=== PATIENT | male | born 1965 | race Caucasian/White ===

== ENCOUNTER 2017-01-26 08:23 | Inpatient (IN) | payer BC ==
[~2017-01-26] VITALS: Ht 167.6 cm; Wt 76.6 kg
[2017-01-26] VITALS (8 sets, daily range): BP systolic 92–118; BP diastolic 55–76; PULSE 96–116; RESP 14–21; TEMP 98.3; Ht 167.6 cm; Wt 76.6 kg
[2017-01-26] MEDS ORDERED: SOD CHLORIDE 0.9% 1,000 ML IV STA (08:24)
--- NOTE | 2017-01-26 08:44 | RADRPT ---
PROCEDURE: CT head without intravenous contrast CLINICAL INDICATION: Possible Stroke. COMPARISON: None relevant listed. TECHNIQUE: Axial CT images from skull base to vertex with coronal and sagittal reformats. DOSE: The estimated administered radiation dose was CTDI vol = 82, 41, 45 mGy. DLP = 1260 mGy-cm. O ne or more of the following dose reduction techniques were used: automated exposure control, adjustm ent of the mA and/or kV according to patient size, or use of iterative reconstruction. FINDINGS: Limitations: Motion degrades image quality. Parenchyma: No gross hemorrhage or large territorial infarction. Ventricles: No ventriculomegaly or ventricular effacement. Extra-axial spaces: No midline shift. Paranasal sinuses and mastoids: Clear. Bones: Grossly Normal. Additional comment: None. IMPRESSION: Markedly limited examination due to gross patient motion. No gross hemorrhage identified or large t erritorial infarction identified. A repeat examination can be performed when tolerable for the sen ent. RPTAT: PP Physician Anirudh Date Time Electronically viewed and signed by Physician Anirudh on 01/26/2017 08:44 LG/
[2017-01-26 08:59] LABS: ABNORMAL IP MESSAGE 1; BASOPHILS % 0.2 % (0.0-2.0); HEMATOCRIT 38.3 % (42.0-52.0); HEMOGLOBIN 14.2 g/dl (14.0-18.0); LYMPHOCYTES # 1.5 10^3/ul (0.8-2.9); LYMPHOCYTES % 7.5 % (15.0-51.0); MEAN CORPUSCULAR HEMOGLOBIN 30.5 pg (29.0-33.0); MEAN CORPUSCULAR HGB CONC 37.1 g/dl (32.0-37.0); MEAN CORPUSCULAR VOLUME 82.4 fl (82.0-101.0); MEAN PLATELET VOLUME 9.9 fl (7.4-10.4); MONOCYTE # 1.6 10^3/ul (0.3-0.9); NEUTROPHIL # 16.7 10^3/ul (1.6-7.5); NEUTROPHILS % 83.9 % (39.0-77.0); PLATELET COUNT 367 10^3/UL (140-415); POSITIVE DIFF @See below; RED BLOOD COUNT 4.65 10^6/ul (4.70-6.10); RED CELL DISTRIBUTION WIDTH 12.1 % (11.5-14.5); WHITE BLOOD COUNT 19.9 10^3/ul (4.8-10.8)
[2017-01-26] MEDS ORDERED: LORAZEPAM 2 MG INJ IV ONE ×2 (09:00→14:30)
[2017-01-26] MEDS ORDERED: LORAZEPAM 2 MG INJ IV STA (09:02)
[2017-01-26] MEDS ORDERED: SODIUM CHLORIDE 0.9% 1L BAG IV* STA (09:02)
[2017-01-26 09:04] LABS: ADD UMIC YES; UR ASCORBIC ACID NEGATIVE (NEGATIVE); UR BILIRUBIN (Dip) NEGATIVE (NEGATIVE); UR BLOOD (Dip) 2+ mg/dL (NEGATIVE); UR CLARITY CLEAR (CLEAR); UR COLOR STRAW (YELLOW); UR GLUCOSE (Dip) 3+ mg/dL (NEGATIVE); UR KETONES (Dip) 2+ mg/dL (NEGATIVE); UR LEUKOCYTE ESTERASE (Dip) NEGATIVE Leu/ul (NEGATIVE); UR NITRITE (Dip) NEGATIVE (NEGATIVE); UR RBC 2 /HPF (0-5); UR SPECIFIC GRAVITY (Dip) 1.012 (1.003-1.030); UR TOTAL PROTEIN (Dip) NEGATIVE (NEGATIVE); UR UROBILINOGEN (Dip) NEGATIVE (NEGATIVE)
[2017-01-26 09:13] LABS: Allen Test ACCEPTAB; Arterial Base Excess -7.2 mmol/L (-3.0-3); Arterial COHb 0.3 % (0.0-3.0); Arterial Fraction of Oxyhgb 98.8 % (93.0-99.0); Arterial HCO3 14.3 mmol/L (22.0-26.0); Arterial MetHb 0.3 % (0.0-1.5); Arterial Total Hemglobin 14.9 g/dl (12.0-18.0); MODE MASK - NRB
[2017-01-26 09:27] LABS: BARBITURATES Negative (NEGATIVE); BENZODIAZEPINES Negative (NEGATIVE); CANNABINOIDS Negative (NEGATIVE); COCAINE Negative (NEGATIVE); OPIATES Negative (NEGATIVE)
[2017-01-26] MEDS ORDERED: CEFTRIAXONE 2 GM/50 ML (PMX) 50 ML IVPB ONE (09:30)
[2017-01-26 09:33] LABS: INR 1.01; PARTIAL THROMBOPLASTIN TIME 26.4 Sec (25.0-35.0); PROTIME 13.3 Sec (12.2-14.2)
[2017-01-26 09:36] LABS: CREATININE 0.81 mg/dl (0.61-1.24); POTASSIUM 3.4 mmol/L (3.5-5.1)
[2017-01-26 09:47] LABS: TROPONIN-I 0.081 ng/ml (0.00-0.12)
--- NOTE | 2017-01-26 10:45 | RADRPT ---
PROCEDURE: XR Chest. CLINICAL INDICATION: Possible Stroke TECHNIQUE: Single frontal view of the chest was obtained COMPARISON: None FINDINGS: Overlying necklace obscures underlying anatomy, limiting evaluation. There are low lung volumes. The cardiomediastinal silhouette is within normal limits. No pneumothorax, pleural effusion, or consolidation is identified. There is no evidence of pulmonary vascular congestion. The osseous structures, as visualized, are unremarkable. IMPRESSION: No evidence of an acute cardiopulmonary process. RPTAT: [facility] Physician Ayla Date Time Electronically viewed and signed by Physician Ayla on 01/26/2017 10:44 RC/
--- NOTE | 2017-01-26 10:46 | CONS ---
Date/Time of Note Date/Time of Note DATE: 01/26/17 TIME: 10:45 Assessment/Plan Assessment/Plan Additional Assessment/Plan 51 year old male with HTN, HLD was hiking yesterday and returned home found by his roommate unresponsive- he was brought in by Ambulance with altered mental status. He is noted with severe metabolic abnormalities: hyponatremia, elevated lactic acid and leukocytosis with shift. He remains encephalopathic- Currently his BP also dropped to systolic 80s Renal has been consulted for acute hyponatremia with Na 122, HCO3 16. Renal has been consulted for severe hyponatremia, Severe metabolic acidosis. 1. acute metabolic encephalopathy vs Infectious encephalopathy 2. severe hyponatremia 3. severe metabolic acidosis 4. Hypokalemia 5. Sepsis with Hypotension 6. acute rhabdomyolysis Plan: ICU admission IV abx for possible concern about sepsis KCL 20mEQ IV x 1 dose now Sodium Bicarbonate drip with HCo3 100meQ at 75 cc/hr Urine studies including Urine sodium, Urine prot/cr ratio, CK total, Uric acid, urine drug screen IVF NS at 125 cc/hr ammonial level Neurology consult, MRI brain, carotid doppler US NO family member available at this time in emergency Room- we will update family meeting when they are available. Thanks for consultaiton,we will continue to follow up Consultation Date/Type/Reason Admit Date/Time 01/26/2017 Date of Consultation: Jan 26, 2017 Type of Consultation: NEPHROLOGY Reason for Consultation Severe Hyponatremia, Metabolic acidosis Referring Provider: LAURI SALAS Hx of Present Illness 51 year old male with HTN, HLD was hiking yesterday and returned home found by his roommate unresponsive- he was brought in by Ambulance with altered mental status. He is noted with severe metabolic abnormalities: hyponatremia, elevated lactic acid and leukocytosis with shift. He remains encephalopathic- Currently his BP also dropped to systolic 80s Renal has been consulted for acute hyponatremia with Na 122, HCO3 16. Renal has been consulted for severe hyponatremia, Severe metabolic acidosis. Subjective hx not possible: pt non-verbal, other (pt is altered , not following commands ) Past Medical History Medical History: hypertension Past Surgical History Past Surgical Hx: other (unable to obtain ) Family History Significant Family History: other (unable to obtain ) Social History Alcohol Use: none Drug Use: other (unable to obtain ) Exam/Review of Systems Vital Signs Vitals Vital Signs Date Time Temp Pulse Resp B/P Pulse Ox O2 Delivery O2 Flow Rate FiO2 01/26/17 10:01 Non Rebreather 10.0 01/26/17 09:58 98.3 105 20 109/78 98 Exam Constitutional: other (Altered mental status ) Head: normocephalic ENMT: nl external ears & nose Neck: supple Respiratory: crackles/rales, diminished breath sounds, intercostal retraction Cardiovascular: nl pulses, regular rate and rhythm Gastrointestinal: non-tender, soft Extremities: normal pulses Results Result Diagram: 01/26/17 0830 01/26/17 0830 Results 24 hrs Laboratory Tests Test 01/26/17 08:30 01/26/17 08:45 01/26/17 08:59 01/26/17 09:02 White Blood Count 19.9 H Red Blood Count 4.65 L Hemoglobin 14.2 Hematocrit 38.3 L Mean Corpuscular Volume 82.4 Mean Corpuscular Hemoglobin 30.5 Mean Corpuscular Hemoglobin Concent 37.1 H Red Cell Distribution Width 12.1 Platelet Count 367 Mean Platelet Volume 9.9 Neutrophils % 83.9 H Lymphocytes % 7.5 L Monocytes % 8.0 Eosinophils % 0.0 Basophils % 0.2 Nucleated Red Blood Cells % 0.0 Neutrophils # 16.7 H Lymphocytes # 1.5 Monocytes # 1.6 H Eosinophils # 0.0 Basophils # 0.0 Nucleated Red Blood Cells # 0.0 Prothrombin Time 13.3 Prothrombin Time Ratio 1.0 INR International Normalized Ratio 1.01 Activated Partial Thromboplast Time 26.4 Sodium Level 122 L Potassium Level 3.4 L Chloride Level 91 L Carbon Dioxide Level 16 L Anion Gap 18 H Blood Urea Nitrogen 8 Creatinine 0.81 Glucose Level 131 Calcium Level 9.0 Troponin I 0.081 Urine Opiates Screen Negative Urine Barbiturates Negative Urine Amphetamines Screen Negative Urine Benzodiazepines Screen Negative Urine Cocaine Screen Negative Urine Cannabinoids Negative Ethyl Alcohol Level < 10.0 Urine Color STRAW Urine Clarity CLEAR Urine pH 6.0 Urine Specific [place] 1.012 Urine Ketones 2+ H Urine Nitrite NEGATIVE Urine Bilirubin NEGATIVE Urine Urobilinogen NEGATIVE Urine Leukocyte Esterase NEGATIVE Urine Microscopic RBC 2 Urine Microscopic WBC 1 Urine Hemoglobin 2+ H Urine Glucose 3+ H Urine Total Protein NEGATIVE Blood Gas Specimen Source Blood arterial Arterial Blood Date Drawn 01/26/2017 9:00:53 AM Arterial Blood pH (Temp corrected) 7.448 Arterial Blood pCO2 (Temp correct) 21.2 L Arterial Blood pO2 (Temp corrected) 347.8 H Arterial Blood HCO3 14.3 L Arterial Blood Base Excess -7.2 L Arterial Blood Oxygen Saturation 99.4 H Ramone Test ACCEPTAB Arterial Blood Gas Puncture Site LB Arterial Blood Carboxyhemoglobin 0.3 Arterial Blood Methemoglobin 0.3 Blood Gas A-a O2 Differential 344.0 H Oxyhemoglobin Percent 98.8 Total Hemoglobin 14.9 Blood Gas Temperature 37.0 Blood Gas Modality MASK - NRB FiO2 100.0 Blood Gas Notified Rach Thornton Blood Gas Notified Time 01/26/2017 9:12:51 AM Bedside Glucose 135 MEDARDO CAM MD Jan 26, 2017 10:45
[2017-01-26 10:53] LABS: ALBUMIN 4.5 g/dl (3.3-4.9); BILIRUBIN,INDIRECT 0.6 mg/dl (0-1.1); BILIRUBIN,TOTAL 0.6 mg/dl (0.2-1.3); TOTAL PROTEIN 7.3 g/dl (6.1-8.1)
[2017-01-26] MEDS ORDERED: ALBUTEROL/IPRATROPIUM (NEB) 3 ML AMP NEB PRN (11:00)
[2017-01-26] MEDS ORDERED: ONDANSETRON 4 MG INJ IV PRN (11:00)
[2017-01-26] MEDS ORDERED: NITROGLYCERIN (SL) 0.4 MG TAB SL PRN (11:00)
[2017-01-26] MEDS ORDERED: POTASSIUM CHLORIDE 20 MEQ in SOD CHLORIDE 0.9% 100 ML IVPB ONE (11:00)
[2017-01-26 11:03] LABS: AMMONIA < 9 umol/l (9-30)
[2017-01-26 11:05] LABS: LACTIC ACID 2.3 mmol/L (0.5-2.0)
[2017-01-26] MEDS ORDERED: ATOR40TA68 PO (11:07)
[2017-01-26] MEDS ORDERED: LOSA25TA2 (11:07)
--- NOTE | 2017-01-26 11:15 | HP ---
Date/Time of Note Date/Time of Note DATE: 01/26/17 TIME: 11:15 Assessment/Plan VTE Prophylaxis VTE Prophylaxis Intervention: SCD's Lines/Catheters Urinary Cath still in place: Yes Reason Cath still needed: other (indicate) Assessment/Plan Assessment/Plan This is a 51-year-old male who was brought by ambulance after found altered and nonverbal. 1. Acute encephalopathy with severe metabolic abnormalities (hyponatremia, lactic acidosis, low bicarb, elevated CK) in a patient with no known alcohol or other drug-intoxication: Rule out Hypoxic-ischemic encephalopathy vs Septic/ infectious encephalopathy vs toxic-metabolic encephalopathy of other etiologies. CT negative for acute infarct or hemorrhage-however, there is more artifact due to motion. -ICU admission -Further Stroke rule out with MRI in AM and EEG to rule out seizure -Septic work up with diagnostic lumbar puncture to rule out possible ASSISTANT PRESSMAN infection and pancultures for other bacteremia work-up -Rule out cardiac ischemic events with 2D echocardiogram, EKG and serial troponin -Rule out further electrolyte abnormalities other than existing hyponatremia- obtain repeat sodium lvel, add mag, calcium and PO4 level -Rule out other endocrinopathies with a Thyroid profile,B12 level and A1C -Will also request a Neurology consult- Ativan low dose PRN for now as pt is very agitated and will defer neurology for better choice of ASSISTANT PRESSMAN agents -Patient will be kept on a seizure and aspiration precautions 2. Hyponatremia of unknown etiology-Rule out SIADH. Ofnote, no seizure activities reported. -We will call nephrology consult-Needs further urine studies and this will be deferred to out nephrology team. For now, patient will be treated with IV fluids. -Monitor sodium level closely. -Seizure precaution 3. Sepsis of unknown etiology. -Obtain pancultures -Proceed with LP and follow-up with LP fluid studies -Start patient on broad-spectrum antibiotics , systemic hydration and will seek ID consult 4.Severe anion-gap Metabolic acidosis -Start systemic hydration and defer nephrology for bicarb treatment. 5.Possible early Rhabdomyolysis -We will treat with IV fluids. Monitor CK 6. Hypokalemia, mild -Defer nephrology 7. Hypertension-Now stable -Resume home medications once stable for p.o. 8. Dyslipidemia -Resume statin once able to take p.o. DVT prophylaxis: SCDs-we will consider prophylactic anticoagulation after MRI follow-up PUD prophylaxis: Pepcid Plan: Patient will be admitted to intensive care unit for closer neurovascular checks. He will need restraints as he is very agitated at this time.Patient will have nephrology, neurology and ID evaluation. For now, he will be kept n.p.o. with seizure and aspiration precaution. Electrolyte levels will be monitored closely with close sodium monitoring. Neurochecks will be monitored as well. Follow-up with serial troponins,LP studies,MRI,echo, EEG and other ordered labs/tests. Patient will be placed on DVT and PUD prophylaxis. Abstain from chemical anticoag at this time and will reevaluate in AM. Patient will be also followed by personal chef. The rest of the management depend on clinical course, further studies and input from consultants. CONDITION UP ON ARRIVAL:CRITICAL Approximately 60 minutes was spent on this history and physical. Case discussed with Dr. Bloom. HPI/ROS Admit Date/Time Admit Date/Time 01/26/2017 Hx of Present Illness This is a very unfortunate 51-year-old male with a past medical history of hypertension, hyperlipidemia, who was found altered by his roommate and was brought to the emergency room by ambulance. Last known well time was last night after he arrived home from [facility]. Patient is not able to provide any history due to his current mental status as he was found acutely delirious, confused, restless and non-verbal. Therefore, history was obtained from patient 's roommate. There is no history of substance abuse per roommate. A CT brain study was limited due to motion artifact, however there was no gross hemorrhage or large acute territorial infarction. Patient also had elevated WBC 19,900 with left shift. No fever. He also had a low sodium 122, potassium 3.4 and elevated lactic acid 2.3. Patient also had elevated CK 1333. ABG with a bicarb of 14.3. Drug toxicology was negative. Urine analysis with 2+ ketones and 3+ glucose. There was no WBC, bacteria or leukocyte Estrace. Patient was treated with normal saline,ceftriaxone and Ativan for agitation and was admitted for further evaluation. ROS Unable to do a 12 point review of system as patient is encephalopathic. PMH/Family/Social Past Medical History See HPI Past Surgical History See HPI Social History As per friend, patient never had any alcohol, smoking or drug use history Smoking Status: Unknown if ever smoked Exam/Review of Systems Vital Signs Vitals Vital Signs Date Time Temp Pulse Resp B/P Pulse Ox O2 Delivery O2 Flow Rate FiO2 01/26/17 10:01 Non Rebreather 10.0 01/26/17 09:58 98.3 105 20 109/78 98 Exam Exam General: Disoriented, moving around, restless and agitated. HEENT: Normocephalic, Atraumatic, No laceration or hematoma; Eyes: PEERL, Conjunctiva clear, Anicteric sclera Neck: Supple without any lymphadenopathy, nontender, no JVD, no carotid bruits, trachea midline, no thyromegaly Cardiac: S1, S2 auscultated, regular rhythm and rate, no mumurs or gallop Pulmonary: Normal respiratory effort. Chest clear to auscultation bilaterally, no adventitious breath sounds GI: Abdomen normal to inspection. Soft, non tender, non- distended, no masses, no rebound tenderness or guarding. Bowel sounds active on all four quadrants Genitourinary: Deferred Extremities: No cyanosis, clubbing, or edema. Pulses [2+] bilaterally. Full ROM on all four extremities. No focal weakness appreciated. Neurologic: Delirious+, not verbally responsive. Moves around, restless and disoriented 4 Skin: Clean,dry, and intact. No ecchymosis, no rashes, or lesions Labs Result Diagram: 01/26/17 0830 01/26/17 0830 Medications Medications Current Medications Sodium Bicarbonate 100 meq/Dextrose 1,100 ml @ 75 mls/hr [id number] IV ; Start at 11:00 Potassium Chloride 20 meq/ Sodium Chloride 110 ml @ 55 mls/hr ONCE ONCE IVPB ; Start 01/26/17 at 11:00; Stop 01/26/17 at 12:59 Sodium Chloride (NS) 1,000 ml @ 125 mls/hr Q8H IV ; Start 01/26/17 at 10:59; Status UNV Ondansetron HCl (Zofran Inj) 4 mg Q6H PRN IV NAUSEA AND/OR VOMITING; Start at 11:00; Status UNV Nitroglycerin (Nitroglycerin (Sl Tab) 0.4 Mg) 1 tab Q5M PRN SL CHEST PAIN; Start 01/26/17 at 11:00; Status UNV Lorazepam (Ativan) 1 mg Q2H PRN IV ANXIETY; Start 01/26/17 at 11:00; Status UNV Famotidine 20 mg 20 mg Q12 IV ; Start 01/26/17 at 21:00; Status UNV Piperacillin Sod/ Tazobactam Sod (Zosyn 3.375gm/ 100 ml (Pmx)) 100 ml @ 200 mls /hr Q6 IVPB ; Start 01/26/17 at 12:00; Status UNV MONET FLORES NP Jan 26, 2017 11:15
[2017-01-26] MEDS: SODIUM BICARBONATE (IV ADD) 100 MEQ in DEXTROSE 5% 1,000 ML IV SCH (11:52)
[2017-01-26] MEDS: SOD CHLORIDE 0.9% 1,000 ML IV SCH ×2 (11:53→17:34)
[2017-01-26] MEDS ORDERED: LEVETIRACETAM 500 MG (PMX) 100 ML IVPB SCH (12:00)
[2017-01-26] MEDS: PIPER-TAZO 3.375 GM IV (PMX) 100 ML IVPB SCH ×3 (12:00→23:46)
[2017-01-26] MEDS: FAMOTIDINE 20 MG INJ IV SCH ×2 (12:00→21:10)
[2017-01-26] MEDS ORDERED: IODIXANOL LOCM 100 ML BTL ONE (12:13)
[2017-01-26] MEDS ORDERED: IODIXANOL LOCM 50 ML BTL ONE (12:13)
[2017-01-26] MEDS ORDERED: SOD CHLORIDE 0.9% 100 ML ONE (12:13)
[2017-01-26] MEDS ORDERED: QUETIAPINE 25 MG TAB PO PRN (12:30)
--- NOTE | 2017-01-26 12:38 | CONS ---
Date/Time of Note Date/Time of Note DATE: 01/26/17 TIME: 12:28 Assessment/Plan Assessment/Plan Chief Complaint/Hosp Course 51 year old male with HTN, HLD was hiking yesterday and returned home found by his roommate unresponsive with severe metabolic abnormalities: hyponatremia, elevated lactic acid and leukocytosis with shift. He remains encephalopathic. Recommendations: -avoid ativan due to inability to monitor his neurologic status, if needed for agitation recommended low dose Seroquel 25 mg daily prn -rule out HIGH SCHOOL DIRECTOR infection given elevated WBC and AMS- recommend LP may be done under IR, Cell Count, Protein, Glucose, Cultures, Fungal, Bacterial cultures, Viral encephalitis panel, HSV I,II PCR -MRI Brain without contrast -Routine EEG -nephrology following, recommend slow Sodium correction not to exceed 10 mmol/L/ 24 hours to avoid CPM -for now dc Keppra no clear history of seizure will review EEG and MRI and re- order if necessary -ICU admission planned will follow w further recommendations please contact me for any decline in his status Problems: Consultation Date/Type/Reason Admit Date/Time 01/26/2017 Date of Consultation: Jan 26, 2017 Type of Consultation: Neurology Reason for Consultation encephalopathy Referring Provider: MONET FLORES V. SALON COORDINATOR Hx of Present Illness 51 year old male with history of HTN, HLD admitted with acute AMS, he was brought in by roommate who found in laying in bed unresponsive. Per report he was hiking yesterday and and taken something to sleep prior to going to bed. CTH on admission limited study due to motion artifact. He remains agitated and non-verbal unable to follow any commands. Na: 122 Chloride 91, Anion Gap 18 WBC: 19.9, Neutrophils 83.9 Lactic acid 2.3 CK 1333 Subjective hx not possible: pt non-verbal, pt critical Social History Smoking Status: Unknown if ever smoked Exam/Review of Systems Vital Signs Vitals Vital Signs Date Time Temp Pulse Resp B/P Pulse Ox O2 Delivery O2 Flow Rate FiO2 01/26/17 11:00 98.3 109 20 106/65 98 Room Air 01/26/17 10:01 10.0 Exam awake with eyes open unable to follow commands non-verbal moving around the bed agitated CN: TRUDY Dolls intact corneals and gag present Motor w/d in all extremities to noxious Reflexes 1+ throughout toes are downgoing withdraws appropriately poorly cooperative for remainder of exam Results Result Diagram: 01/26/17 0830 01/26/17 0830 Results 24 hrs Laboratory Tests Test 01/26/17 08:30 01/26/17 08:45 01/26/17 08:59 01/26/17 09:02 White Blood Count 19.9 H Red Blood Count 4.65 L Hemoglobin 14.2 Hematocrit 38.3 L Mean Corpuscular Volume 82.4 Mean Corpuscular Hemoglobin 30.5 Mean Corpuscular Hemoglobin Concent 37.1 H Red Cell Distribution Width 12.1 Platelet Count 367 Mean Platelet Volume 9.9 Neutrophils % 83.9 H Lymphocytes % 7.5 L Monocytes % 8.0 Eosinophils % 0.0 Basophils % 0.2 Nucleated Red Blood Cells % 0.0 Neutrophils # 16.7 H Lymphocytes # 1.5 Monocytes # 1.6 H Eosinophils # 0.0 Basophils # 0.0 Nucleated Red Blood Cells # 0.0 Prothrombin Time 13.3 Prothrombin Time Ratio 1.0 INR International Normalized Ratio 1.01 Activated Partial Thromboplast Time 26.4 Sodium Level 122 L Potassium Level 3.4 L Chloride Level 91 L Carbon Dioxide Level 16 L Anion Gap 18 H Blood Urea Nitrogen 8 Creatinine 0.81 Glucose Level 131 Calcium Level 9.0 Troponin I 0.081 Urine Opiates Screen Negative Urine Barbiturates Negative Urine Amphetamines Screen Negative Urine Benzodiazepines Screen Negative Urine Cocaine Screen Negative Urine Cannabinoids Negative Ethyl Alcohol Level < 10.0 Urine Color STRAW Urine Clarity CLEAR Urine pH 6.0 Urine Specific [place] 1.012 Urine Ketones 2+ H Urine Nitrite NEGATIVE Urine Bilirubin NEGATIVE Urine Urobilinogen NEGATIVE Urine Leukocyte Esterase NEGATIVE Urine Microscopic RBC 2 Urine Microscopic WBC 1 Urine Hemoglobin 2+ H Urine Glucose 3+ H Urine Total Protein NEGATIVE Blood Gas Specimen Source Blood arterial Arterial Blood Date Drawn 01/26/2017 9:00:53 AM Arterial Blood pH (Temp corrected) 7.448 Arterial Blood pCO2 (Temp correct) 21.2 L Arterial Blood pO2 (Temp corrected) 347.8 H Arterial Blood HCO3 14.3 L Arterial Blood Base Excess -7.2 L Arterial Blood Oxygen Saturation 99.4 H Ramone Test ACCEPTAB Arterial Blood Gas Puncture Site LB Arterial Blood Carboxyhemoglobin 0.3 Arterial Blood Methemoglobin 0.3 Blood Gas A-a O2 Differential 344.0 H Oxyhemoglobin Percent 98.8 Total Hemoglobin 14.9 Blood Gas Temperature 37.0 Blood Gas Modality MASK - NRB FiO2 100.0 Blood Gas Notified Whom M.DDevika Blood Gas Notified Time 01/26/2017 9:12:51 AM Bedside Glucose 135 Test 01/26/17 10:00 Lactic Acid Level 2.3 *H Magnesium Level 2.0 Total Bilirubin 0.6 Direct Bilirubin 0.00 Indirect Bilirubin 0.6 Aspartate Amino Transf (AST/SGOT) 47 H Alanine Aminotransferase (ALT/SGPT) 43 Alkaline Phosphatase 93 Ammonia < 9 L Creatine Kinase 1333 H Total Protein 7.3 Albumin 4.5 Thyroid Stimulating Hormone (TSH) 0.945 Medications Medications Current Medications Sodium Bicarbonate 100 meq/Dextrose 1,100 ml @ 75 mls/hr [id number] IV Last administered on 01/26/17 11:52; Admin Dose 75 MLS/HR; Start 01/26/17 at 11:00 Potassium Chloride 20 meq/ Sodium Chloride 110 ml @ 55 mls/hr ONCE ONCE IVPB Last administered on 01/26/17 11:53; Admin Dose 55 MLS/HR; Start 01/26/17 at 11 :00; Stop 01/26/17 at 12:59 Sodium Chloride (NS) 1,000 ml @ 125 mls/hr Q8H IV Last administered on 11:53; Admin Dose 125 MLS/HR; Start 01/26/17 at 10:59 Ondansetron HCl (Zofran Inj) 4 mg Q6H PRN IV NAUSEA AND/OR VOMITING; Start at 11:00 Nitroglycerin (Nitroglycerin (Sl Tab) 0.4 Mg) 1 tab Q5M PRN SL CHEST PAIN; Start 01/26/17 at 11:00 Lorazepam (Ativan) 1 mg Q2H PRN IV ANXIETY; Start 01/26/17 at 11:00 Famotidine 20 mg 20 mg Q12 IV ; Start 01/26/17 at 12:00 Piperacillin Sod/ Tazobactam Sod (Zosyn 3.375gm/ 100 ml (Pmx)) 100 ml @ 200 mls /hr Q6 IVPB ; Start 01/26/17 at 12:00 JOAN MATIAS MD Jan 26, 2017 12:37
--- NOTE | 2017-01-26 12:45 | ERA ---
ER Documentation Chief Complaint Date/Time DATE: 01/26/17 TIME: 12:22 Chief Complaint BIB RA 90 ALTERED FROM HOME NON VERBAL HPI 51-year-old male with no known past medical history brought in by ambulance for altered mental status. He was found by his roommate today confused in his room. The last time he saw him was 2 days ago. Last known well time is unknown. Per EMS, blood sugar was normal in the field. EKG showed sinus tachycardia. He has been able to follow their commands but has limited speech. The rest of the history as unknown ROS Limited review of systems given altered mental status Medications Home Meds Reported Medications Losartan Potassium* (Cozaar*) 25 Mg Tablet, 0.5 01/26/17 Atorvastatin* (Atorvastatin*) 40 Mg Tablet, 40 MG PO QHS 01/26/17 Allergies Allergies: Coded Allergies: Unknown: Unable to obtain (Unverified , 01/26/17) PMhx/Soc Unable to obtain History of Surgery: No Hx Neurological Disorder: No Hx Respiratory Disorders: No Hx Cardiac Disorders: No Hx Psychiatric Problems: No Hx Miscellaneous Medical Probl: No Smoking Status: Unknown if ever smoked FmHx Family History: other (Unable to obtain) Physical Exam Vitals Vital Signs Date Time Temp Pulse Resp B/P Pulse Ox O2 Delivery O2 Flow Rate FiO2 01/26/17 11:00 98.3 109 20 106/65 98 Room Air 01/26/17 10:01 Non Rebreather 10.0 01/26/17 09:58 98.3 105 20 109/78 98 Room Air 01/26/17 09:10 98.3 105 20 110/81 100 Non Rebreather 10.0 01/26/17 08:59 Non Rebreather 15 01/26/17 08:28 103 25 110/74 100 Physical Exam Const: Appears agitated, not diaphoretic, mumbling speech Head: Atraumatic Eyes: Normal Conjunctiva, PERRLA ENT: Normal External Ears, Nose and Mouth. Neck: Full range of motion. Supple. Resp: Tachypneic, clear to auscultation bilaterally Cardio: Regular rate and rhythm, no murmurs. 2+ distal pulses Abd: Soft, non tender, non distended. Normal bowel sounds Skin: No petechiae or rashes Back: No midline or flank tenderness Ext: No cyanosis, or edema Neur: Awake and alert, not answering questions appropriately but following commands, normal tone in all extremities, moving all extremities spontaneously and withdraws to pain. When he does speak, he has normal pronunciation with no slurring Psych: Agitated, hyperactive Result Diagram: 01/26/17 0830 01/26/17 0830 Results 24 hrs Laboratory Tests Test 01/26/17 08:30 01/26/17 08:45 01/26/17 08:59 01/26/17 09:02 White Blood Count 19.910^3/ul Red Blood Count 4.6510^6/ul Hemoglobin 14.2g/dl Hematocrit 38.3% Mean Corpuscular Volume 82.4fl Mean Corpuscular Hemoglobin 30.5pg Mean Corpuscular Hemoglobin Concent 37.1g/dl Red Cell Distribution Width 12.1% Platelet Count 37078^3/UL Mean Platelet Volume 9.9fl Neutrophils % 83.9% Lymphocytes % 7.5% Monocytes % 8.0% Eosinophils % 0.0% Basophils % 0.2% Nucleated Red Blood Cells % 0.0/100WBC Neutrophils # 16.710^3/ul Lymphocytes # 1.510^3/ul Monocytes # 1.610^3/ul Eosinophils # 0.010^3/ul Basophils # 0.010^3/ul Nucleated Red Blood Cells # 0.010^3/ul Prothrombin Time 13.3Sec Prothrombin Time Ratio 1.0 INR International Normalized Ratio 1.01 Activated Partial Thromboplast Time 26.4Sec Sodium Level 122mmol/L Potassium Level 3.4mmol/L Chloride Level 91mmol/L Carbon Dioxide Level 16mmol/L Anion Gap 18 Blood Urea Nitrogen 8mg/dl Creatinine 0.81mg/dl Glucose Level 131mg/dl Calcium Level 9.0mg/dl Troponin I 0.081ng/ml Urine Opiates Screen Negative Urine Barbiturates Negative Urine Amphetamines Screen Negative Urine Benzodiazepines Screen Negative Urine Cocaine Screen Negative Urine Cannabinoids Negative Ethyl Alcohol Level < 10.0mg/dl Urine Color STRAW Urine Clarity CLEAR Urine pH 6.0 Urine Specific [place] 1.012 Urine Ketones 2+mg/dL Urine Nitrite NEGATIVEmg/dL Urine Bilirubin NEGATIVEmg/dL Urine Urobilinogen NEGATIVEmg/dL Urine Leukocyte Esterase NEGATIVELeu/ul Urine Microscopic RBC 2/HPF Urine Microscopic WBC 1/HPF Urine Hemoglobin 2+mg/dL Urine Glucose 3+mg/dL Urine Total Protein NEGATIVEmg/dl Blood Gas Specimen Source Blood arterial Arterial Blood Date Drawn 01/26/2017 9:00:53 AM Arterial Blood pH (Temp corrected) 7.448 Arterial Blood pCO2 (Temp correct) 21.2mmhg Arterial Blood pO2 (Temp corrected) 347.8mmHG Arterial Blood HCO3 14.3mmol/L Arterial Blood Base Excess -7.2mmol/L Arterial Blood Oxygen Saturation 99.4mmHG Ramone Test ACCEPTAB Arterial Blood Gas Puncture Site LB Arterial Blood Carboxyhemoglobin 0.3% Arterial Blood Methemoglobin 0.3% Blood Gas A-a O2 Differential 344.0mmHg Oxyhemoglobin Percent 98.8% Total Hemoglobin 14.9g/dl Blood Gas Temperature 37.0C Blood Gas Modality MASK - NRB FiO2 100.0% Blood Gas Notified Whom M.DDevika Blood Gas Notified Time 01/26/2017 9:12:51 AM Bedside Glucose 135mg/dL Test 01/26/17 10:00 Lactic Acid Level 2.3mmol/L Magnesium Level 2.0mg/dl Total Bilirubin 0.6mg/dl Direct Bilirubin 0.00mg/dl Indirect Bilirubin 0.6mg/dl Aspartate Amino Transf (AST/SGOT) 47IU/L Alanine Aminotransferase (ALT/SGPT) 43IU/L Alkaline Phosphatase 93IU/L Ammonia < 9umol/l Creatine Kinase 1333IU/L Total Protein 7.3g/dl Albumin 4.5g/dl Thyroid Stimulating Hormone (TSH) 0.945MIU/L Current Medications Medications (Trade) Dose Ordered Sig/Lakhwinder Route PRN Reason Start Time Stop Time Status Last Admin Dose Admin Sodium Chloride (NS) 1,000 ml @ 1,000 mls/hr Q1H STAT IV 01/26/17 08:24 01/26/17 09:23 DC 01/26/17 08:58 Lorazepam (Ativan) 1 mg ONCE ONCE IV 01/26/17 09:00 01/26/17 09:01 DC 01/26/17 08:58 Lorazepam (Ativan) 1 mg ONCE STAT IV 01/26/17 09:02 01/26/17 09:04 DC 01/26/17 09:40 Sodium Chloride 1330 ml 1,330 ml BOLUS OVER 2 HOURS STAT IV* 01/26/17 09:02 01/26/17 09:04 DC 01/26/17 09:40 Ceftriaxone Sodium 50 ml @ 100 mls/hr ONCE ONCE IVPB 01/26/17 09:30 01/26/17 09:59 DC 01/26/17 09:38 Sodium Bicarbonate 100 meq/Dextrose 1,100 ml @ 75 mls/hr [id number] IV 01/26/17 11:00 01/26/17 11:52 Potassium Chloride 20 meq/ Sodium Chloride 110 ml @ 55 mls/hr ONCE ONCE IVPB 01/26/17 11:00 01/26/17 12:59 01/26/17 11:53 Sodium Chloride (NS) 1,000 ml @ 125 mls/hr Q8H IV 01/26/17 10:59 01/26/17 11:53 Ondansetron HCl (Zofran Inj) 4 mg Q6H PRN IV NAUSEA AND/OR VOMITING 01/26/17 11:00 Albuterol/ Ipratropium (Duoneb) 3 ml Q4H RESP THERAPY NEB 01/26/17 13:00 Albuterol/ Ipratropium (Duoneb) 3 ml Q2H RESP THERAPY PRN NEB SHORTNESS OF BREATH 01/26/17 11:00 Nitroglycerin (Nitroglycerin (Sl Tab) 0.4 Mg) 1 tab Q5M PRN SL CHEST PAIN 01/26/17 11:00 Lorazepam (Ativan) 1 mg Q2H PRN IV ANXIETY 01/26/17 11:00 Famotidine 20 mg 20 mg Q12 IV 01/26/17 12:00 Piperacillin Sod/ Tazobactam Sod 100 ml @ 200 mls/hr Q6 IVPB 01/26/17 12:00 Levetiracetam (Keppra 500 Mg/ 100ml (Pmx)) 100 ml @ 400 mls/hr Q12 IVPB 01/26/17 12:00 01/26/17 12:00 DC IV Flush 10 ml 10 ml STK-MED ONCE .ROUTE 01/26/17 12:13 01/26/17 12:14 DC Sodium Chloride (NS) 100 ml @ ud STK-MED ONCE .ROUTE 01/26/17 12:13 01/26/17 12:14 DC Iodixanol (Visipaque Locm) 100 ml STK-MED ONCE .ROUTE 01/26/17 12:13 01/26/17 12:14 DC Iodixanol (Visipaque Locm) 50 ml STK-MED ONCE .ROUTE 01/26/17 12:13 01/26/17 12:14 DC Procedures/MDM EKG: Rate/Rhythm: Normal Sinus Rhythm QRS, ST, T-waves: No changes consistent w/ acute ischemia Impression: No evidence of ischemia or arrhythmia Chest x-ray shows no acute abnormalities CT head limited secondary to movement artifact but shows no major acute abnormalities Labs CBC: Leukocytosis CMP: Hyponatremia, low CO2 Troponin within normal limits Lactate elevated CK elevated UA: no evidence of infection Drug screen negative Alcohol level negative MDM Patient is presenting with altered mental status. Vitals are stable and he is afebrile. Differential includes toxic versus metabolic versus infectious etiologies. Urine drug screen was negative. Alcohol level was normal. Labs show evidence of rhabdomyolysis with hyponatremia and hypochloremia. He does not have any seizure-like activity but Ativan was given for his agitation with improvement. 30 cc/kg of IV fluids were started. Prophylactic antibiotics were given in case of possible infection given he met SIRS criteria. CT did not show any acute hemorrhage or other acute abnormalities. I have a lower suspicion for encephalitis or meningitis, however I did consider this. Patient' s agitation is much improved but he will need close monitoring in the ICU and treatment of his acute metabolic issues. Family was kept updated. They state that the patient has been working out vigorously for the past few weeks and they think he has been drinking a lot of fluids as well. Critical Care Time: 45 minutes Treatments/Evaluations: Close monitoring and treatment of unstable vital signs, cardiorespiratory, and neurologic status, while maintaining tight balance of fluid, respiratory, and cardiac interventions. This time includes discussing the case with the patient and the patients family. This time does not include all procedures stated elsewhere in this record. This time also includes reviewing old records, labs and radiological studies. This time includes examining and re-examining the patient. Additionally, this time also includes arranging care with admitting and consulting physicians. Accepting Care Team: Current data and ongoing care discussed. Time: Time of admission Primary Provider: Dr. Leo Moreira Consulting: None Outstanding Data: none Departure Diagnosis: Primary Impression: Acute encephalopathy Additional Impressions: Rhabdomyolysis Qualified Code: M62.82 - Non-traumatic rhabdomyolysis Hyponatremia Condition: Critical EKMEKJIAN,NELLIE R. MD Jan 26, 2017 12:33
[2017-01-26] MEDS: ALBUTEROL/IPRATROPIUM (NEB) 3 ML AMP NEB SCH ×3 (12:49→21:22)
--- NOTE | 2017-01-26 13:00 | RADRPT ---
PROCEDURE: CTA Chest with contrast and with 3-D reconstructions CLINICAL INDICATION: Found down, pulmonary embolism TECHNIQUE: The study was performed utilizing multidetector CT scanner. Direct spiral axial section s were obtained from the thoracic inlet to the upper abdomen with the use of intravenous contrast ma terial (115 cc of Visipaque 320). Sagittal, coronal and 3-D reformations were obtained. The images w ere reviewed on a PACS workstation. DLP 492.66 mGycm CTDIvol 56.34, 12.81 mGy One or more of the following dose reduction techniques were used: - Automated exposure control. - Adjustment of the mA and/or kV according to patient size. - Use of iterative reconstruction technique. COMPARISON: No prior studies are available for comparison. FINDINGS: There are no pulmonary emboli. The lungs are clear. There is no pleural fluid. There is no pneumothorax. Heart size is within normal limits. There is no pericardial fluid. The aorta is within normal limi ts. There are no enlarged axillary or mediastinal lymph nodes. The visualized portions of the upper abdomen are unremarkable. Osseous and soft tissue structures are within normal limits. IMPRESSION: No CT evidence for pulmonary embolus. Clear lungs. RPTAT: EE Physician Elsy Date Time Electronically viewed and signed by Physician Elsy on 01/26/2017 12:59 /
--- NOTE | 2017-01-26 14:49 | RADRPT ---
Echocardiogram Report Patient Name: RICKY ROMERO Gender: Male Date: 1965 Study Date: 26-Jan-2017 Assembly Inspector Helper: NANCY Salter Location: ED1 Ref. Physician: MONET FLORES Quality: Adequate Procedures: Transthoracic echocardiogram with complete 2D, M-Mode, and doppler examination. Indications: Evaluate Left Ventricular function. 2D/M Mode Doppler Measurement Value Normal Ranges Measurement Value Normal Ranges LVIDd 2D 2.9 3.5 - 5.6 cm AV Peak Domenic 1.5 m/sec LVIDs 2D 1.7 2.1 - 4.1 cm AV Peak PG 9.2 mmHg LVPWd 2D 2.8 0.6 - 1.1 cm AI Peak PG 17.2 mmHg IVSd 2D 1.3 0.6 - 1.1 cm AI Peak Domenic 2.1 m/sec AoR Diam 2D 2.8 2.0 - 3.7 cm AI PHT 484.0 msec EDV 2D 31.6 cm3 LVOT Peak Domenic 1.4 m/sec ESV 2D 4.6 cm3 LVOT Peak PG 7.4 mmHg LA Dimen 2D 3.2 2.3 - 4.0 cm MV E Peak Domenic 0.6 m/sec MV A Peak Domenic 0.6 m/sec MV E/A 0.9 MV Decel Time 258 msec MV Decel Isabela 2 MV E/A 0.9 TR Peak Domenic 2.1 m/sec TR Peak PG 27.0 mmHg RVSP 37.0 mmHg Findings Left Ventricle: Normal left ventricular systolic function. Mild concentric left ventricular hypertrophy. Ejection fraction is visually estimated at 55 %. Tissue Doppler/Mitral Doppler indices are consistent with impaired relaxation (Stage I diastolic dysfunction). Right Ventricle: Normal right ventricular size. Normal right ventricular systolic function. Left Atrium: The left atrium is normal in size. Right Atrium: The right atrium is normal in size. Mitral Valve: Normal appearance and function of the mitral valve with trace physiologic regurgitation. Aortic Valve: Aortic sclerosis without stenosis. Trileaflet aortic valve. Trace to mild aortic valve regurgitation. Tricuspid Valve: Normal appearance of the tricuspid valve. Estimated peak PA systolic pressure 37 mmHg. There is trace tricuspid regurgitation. Pulmonic Valve: There is trace pulmonic regurgitation. Pericardium: Normal pericardium with no significant pericardial effusion. Aorta: Normal aortic root. IVC: Normal size and normal respiratory collapse consistent with normal right atrial pressure. Pulmonary Artery: Normal pulmonary artery size. Conclusions 1.Normal left ventricular systolic function. Mild concentric left ventricular hypertrophy. Ejection fraction is visually estimated at 55 %. Tissue Doppler/Mitral Doppler indices are consistent with impaired relaxation (Stage I diastolic dysfunction). 2.The left atrium is normal in size. 3.Normal appearance and function of the mitral valve with trace physiologic regurgitation. 4.Aortic sclerosis without stenosis. Trileaflet aortic valve. Trace to mild aortic valve regurgitation. 5.Normal appearance of the tricuspid valve. Estimated peak PA systolic pressure 37 mmHg. There is trace tricuspid regurgitation. Electronically Signed By: Nigel Rosales 26-Jan-2017 14:48:12 -0700 Patient Name: RICKY ROMERO Study Date: 26-Jan-2017 [id number]
--- NOTE | 2017-01-26 15:38 | CONS ---
Date/Time of Note Date/Time of Note DATE: 01/26/17 TIME: 15:28 Assessment/Plan Assessment/Plan Chief Complaint/Hosp Course 1. Abnormal troponin: Doubt acute TN. Mostly secondary to troponin leak due to rhabdomyolysis. 2. As result of consciousness: Will refer to the primary internal medicine team. Follow-up with neurology recommendation. 3, history of hypertension currently stable 4. History of dyslipidemia on statin at home. 5. Extra abnormalities and hyponatremia: Is being managed by the renal team. 6. Possible rhabdomyolysis. I will check a CK CK-MB to differentiate between acute TN versus noncardiac causes. Electrolytes are being managed and adjusted as per renal recommendation. Follow neurological improvement of neurology recommendation We will continue to follow along with you. Thank you for this referral. Problems: Consultation Date/Type/Reason Admit Date/Time 01/26/2017 Date of Consultation: Jan 26, 2017 Type of Consultation: CARDIOLOGY Reason for Consultation abnormal troponin Referring Provider: MONET FLORES NP Hx of Present Illness Thank you for his referral. This is a 51-year-old gentleman with history of hypertension who was found to be unresponsive and confused and combative. Patient apparently has been exercising more lately. Today he was found to be unresponsive. He has been agitated and confused. History could be obtained from the patient. Discussed with staff and physicians and chart were reviewed. Patient has had significant residual abnormalities including severe hyponatremia. As part of her workup troponin was checked also which is mildly elevated for which I was kindly asked to evaluate and treat but there is no report of chest pain or pressure. Allergies no reported drug allergy however to obtain at this point. Medications reviewed. Past medical history: Hypertension dyslipidemia. Family history unable to obtain Social history: No reported history of alcohol drug abuse. Review of systems unable to obtain except for above-mentioned. Past Medical History Medical History: hypertension Past Surgical History Past Surgical Hx: other (unable to obtain ) Social History Alcohol Use: none Drug Use: other (unable to obtain ) Exam/Review of Systems Vital Signs Vitals Vital Signs Date Time Temp Pulse Resp B/P Pulse Ox O2 Delivery O2 Flow Rate FiO2 01/26/17 15:01 98.3 99 20 97/50 98 Room Air 01/26/17 14:00 2.0 Exam General: no acute distress HEENT: NC/AT. pupils are equal. round. NECK: NO JVD. no stridor. CV: RRR. systolic murmur; no gallop or rubs. PULM: no wheezing or rhonchi. GI: SOFT, NT, ND, no rebound or guarding Extremity: trace B/L LE edema. no clubbing. neuro: sedated and sleeping now. Psych: calm and pleasant rectal: deferred : normal ECHO REVIEWED: 1. Normal left ventricular systolic function. Mild concentric left ventricular hypertrophy. Ejection fraction is visually estimated at 55 %. Tissue Doppler/Mitral Doppler indices are consistent with impaired relaxation (Stage I diastolic dysfunction). 2. The left atrium is normal in size. 3. Normal appearance and function of the mitral valve with trace physiologic regurgitation. 4. Aortic sclerosis without stenosis. Trileaflet aortic valve. Trace to mild aortic valve regurgitation. 5. Normal appearance of the tricuspid valve. Estimated peak PA systolic pressure 37 mmHg. There is trace tricuspid regurgitation. Results Result Diagram: 01/26/17 0830 01/26/17 0830 Results 24 hrs Laboratory Tests Test 01/26/17 08:30 01/26/17 08:45 01/26/17 08:59 01/26/17 09:02 White Blood Count 19.9 H Red Blood Count 4.65 L Hemoglobin 14.2 Hematocrit 38.3 L Mean Corpuscular Volume 82.4 Mean Corpuscular Hemoglobin 30.5 Mean Corpuscular Hemoglobin Concent 37.1 H Red Cell Distribution Width 12.1 Platelet Count 367 Mean Platelet Volume 9.9 Neutrophils % 83.9 H Lymphocytes % 7.5 L Monocytes % 8.0 Eosinophils % 0.0 Basophils % 0.2 Nucleated Red Blood Cells % 0.0 Neutrophils # 16.7 H Lymphocytes # 1.5 Monocytes # 1.6 H Eosinophils # 0.0 Basophils # 0.0 Nucleated Red Blood Cells # 0.0 Prothrombin Time 13.3 Prothrombin Time Ratio 1.0 INR International Normalized Ratio 1.01 Activated Partial Thromboplast Time 26.4 Sodium Level 122 L Potassium Level 3.4 L Chloride Level 91 L Carbon Dioxide Level 16 L Anion Gap 18 H Blood Urea Nitrogen 8 Creatinine 0.81 Glucose Level 131 Hemoglobin A1c 5.4 Calcium Level 9.0 Troponin I 0.081 Urine Opiates Screen Negative Urine Barbiturates Negative Urine Amphetamines Screen Negative Urine Benzodiazepines Screen Negative Urine Cocaine Screen Negative Urine Cannabinoids Negative Ethyl Alcohol Level < 10.0 Urine Color STRAW Urine Clarity CLEAR Urine pH 6.0 Urine Specific [place] 1.012 Urine Ketones 2+ H Urine Nitrite NEGATIVE Urine Bilirubin NEGATIVE Urine Urobilinogen NEGATIVE Urine Leukocyte Esterase NEGATIVE Urine Microscopic RBC 2 Urine Microscopic WBC 1 Urine Hemoglobin 2+ H Urine Glucose 3+ H Urine Total Protein NEGATIVE Blood Gas Specimen Source Blood arterial Arterial Blood Date Drawn 01/26/2017 9:00:53 AM Arterial Blood pH (Temp corrected) 7.448 Arterial Blood pCO2 (Temp correct) 21.2 L Arterial Blood pO2 (Temp corrected) 347.8 H Arterial Blood HCO3 14.3 L Arterial Blood Base Excess -7.2 L Arterial Blood Oxygen Saturation 99.4 H Ramone Test ACCEPTAB Arterial Blood Gas Puncture Site LB Arterial Blood Carboxyhemoglobin 0.3 Arterial Blood Methemoglobin 0.3 Blood Gas A-a O2 Differential 344.0 H Oxyhemoglobin Percent 98.8 Total Hemoglobin 14.9 Blood Gas Temperature 37.0 Blood Gas Modality MASK - NRB FiO2 100.0 Blood Gas Notified Whom M.D. Blood Gas Notified Time 01/26/2017 9:12:51 AM Bedside Glucose 135 Test 01/26/17 10:00 01/26/17 12:20 01/26/17 12:30 01/26/17 14:00 Lactic Acid Level 2.3 *H 2.4 *H 4.1 *H Magnesium Level 2.0 Total Bilirubin 0.6 Direct Bilirubin 0.00 Indirect Bilirubin 0.6 Aspartate Amino Transf (AST/SGOT) 47 H Alanine Aminotransferase (ALT/SGPT) 43 Alkaline Phosphatase 93 Ammonia < 9 L Creatine Kinase 1333 H Total Protein 7.3 Albumin 4.5 Thyroid Stimulating Hormone (TSH) 0.945 Uric Acid 7.7 Troponin I 0.131 *H Osmolality 265 L Medications Medications Current Medications Sodium Bicarbonate 100 meq/Dextrose 1,100 ml @ 75 mls/hr [id number] IV Last administered on 01/26/17 11:52; Admin Dose 75 MLS/HR; Start 01/26/17 at 11:00 Sodium Chloride (NS) 1,000 ml @ 125 mls/hr Q8H IV Last administered on 11:53; Admin Dose 125 MLS/HR; Start 01/26/17 at 10:59 Ondansetron HCl (Zofran Inj) 4 mg Q6H PRN IV NAUSEA AND/OR VOMITING; Start at 11:00 Nitroglycerin (Nitroglycerin (Sl Tab) 0.4 Mg) 1 tab Q5M PRN SL CHEST PAIN; Start 01/26/17 at 11:00 Lorazepam (Ativan) 1 mg Q2H PRN IV ANXIETY; Start 01/26/17 at 11:00 Famotidine 20 mg 20 mg Q12 IV Last administered on 01/26/17t 12:00; Admin Dose 20 MG; Start 01/26/17 at 12:00 Piperacillin Sod/ Tazobactam Sod (Zosyn 3.375gm/ 100 ml (Pmx)) 100 ml @ 200 mls /hr Q6 IVPB ; Start 01/26/17 at 12:00 Quetiapine Fumarate (Seroquel) 25 mg DAILY PRN PO AGITATION; Start 01/26/17 at 12:30 Atorvastatin Calcium (Lipitor) 40 mg HS PO ; Start 01/26/17 at 21:00 DAY AMBRIZ MD Jan 26, 2017 15:38
[2017-01-26 15:39] LABS: CREATININE 0.79 mg/dl (0.61-1.24); POTASSIUM 4.5 mmol/L (3.5-5.1)
[2017-01-26 15:45] LABS: CK-MB 11.9 ng/ml (0.0-2.4); TROPONIN-I 0.123 ng/ml (0.00-0.12)
[2017-01-26] MEDS: LORAZEPAM 2 MG INJ IV PRN ×3 (16:48→20:51)
--- NOTE | 2017-01-26 16:48 | CONS ---
Date/Time of Note Date/Time of Note DATE: 01/26/17 TIME: 16:47 Consultation Date/Type/Reason Admit Date/Time 01/26/2017 Date of Consultation: Jan 26, 2017 Type of Consultation: ID Reason for Consultation Antibiotic management Past Medical History Medical History: hypertension Past Surgical History Past Surgical Hx: other (unable to obtain ) Social History Alcohol Use: none Drug Use: other (unable to obtain ) Exam/Review of Systems Vital Signs Vitals Vital Signs Date Time Temp Pulse Resp B/P Pulse Ox O2 Delivery O2 Flow Rate FiO2 01/26/17 16:22 103 25 100 Nasal Cannula 2.0 01/26/17 16:00 98.3 105/81 Results Result Diagram: 01/26/17 0830 01/26/17 1400 Results 24 hrs Laboratory Tests Test 01/26/17 08:30 01/26/17 08:45 01/26/17 08:59 01/26/17 09:02 White Blood Count 19.9 H Red Blood Count 4.65 L Hemoglobin 14.2 Hematocrit 38.3 L Mean Corpuscular Volume 82.4 Mean Corpuscular Hemoglobin 30.5 Mean Corpuscular Hemoglobin Concent 37.1 H Red Cell Distribution Width 12.1 Platelet Count 367 Mean Platelet Volume 9.9 Neutrophils % 83.9 H Lymphocytes % 7.5 L Monocytes % 8.0 Eosinophils % 0.0 Basophils % 0.2 Nucleated Red Blood Cells % 0.0 Neutrophils # 16.7 H Lymphocytes # 1.5 Monocytes # 1.6 H Eosinophils # 0.0 Basophils # 0.0 Nucleated Red Blood Cells # 0.0 Prothrombin Time 13.3 Prothrombin Time Ratio 1.0 INR International Normalized Ratio 1.01 Activated Partial Thromboplast Time 26.4 Sodium Level 122 L Potassium Level 3.4 L Chloride Level 91 L Carbon Dioxide Level 16 L Anion Gap 18 H Blood Urea Nitrogen 8 Creatinine 0.81 Glucose Level 131 Hemoglobin A1c 5.4 Calcium Level 9.0 Troponin I 0.081 Urine Opiates Screen Negative Urine Barbiturates Negative Urine Amphetamines Screen Negative Urine Benzodiazepines Screen Negative Urine Cocaine Screen Negative Urine Cannabinoids Negative Ethyl Alcohol Level < 10.0 Urine Color STRAW Urine Clarity CLEAR Urine pH 6.0 Urine Specific [place] 1.012 Urine Ketones 2+ H Urine Nitrite NEGATIVE Urine Bilirubin NEGATIVE Urine Urobilinogen NEGATIVE Urine Leukocyte Esterase NEGATIVE Urine Microscopic RBC 2 Urine Microscopic WBC 1 Urine Hemoglobin 2+ H Urine Glucose 3+ H Urine Total Protein NEGATIVE Blood Gas Specimen Source Blood arterial Arterial Blood Date Drawn 01/26/2017 9:00:53 AM Arterial Blood pH (Temp corrected) 7.448 Arterial Blood pCO2 (Temp correct) 21.2 L Arterial Blood pO2 (Temp corrected) 347.8 H Arterial Blood HCO3 14.3 L Arterial Blood Base Excess -7.2 L Arterial Blood Oxygen Saturation 99.4 H Ramone Test ACCEPTAB Arterial Blood Gas Puncture Site LB Arterial Blood Carboxyhemoglobin 0.3 Arterial Blood Methemoglobin 0.3 Blood Gas A-a O2 Differential 344.0 H Oxyhemoglobin Percent 98.8 Total Hemoglobin 14.9 Blood Gas Temperature 37.0 Blood Gas Modality MASK - NRB FiO2 100.0 Blood Gas Notified Whom Hillary Blood Gas Notified Time 01/26/2017 9:12:51 AM Bedside Glucose 135 Test 01/26/17 10:00 01/26/17 12:20 01/26/17 12:30 01/26/17 14:00 Lactic Acid Level 2.3 *H 2.4 *H 4.1 *H Magnesium Level 2.0 Total Bilirubin 0.6 Direct Bilirubin 0.00 Indirect Bilirubin 0.6 Aspartate Amino Transf (AST/SGOT) 47 H Alanine Aminotransferase (ALT/SGPT) 43 Alkaline Phosphatase 93 Ammonia < 9 L Creatine Kinase 1333 H 1560 H Total Protein 7.3 Albumin 4.5 Thyroid Stimulating Hormone (TSH) 0.945 Uric Acid 7.7 Troponin I 0.131 *H 0.123 *H Osmolality 265 L Sodium Level 133 L Potassium Level 4.5 Chloride Level 99 Carbon Dioxide Level 15 L Anion Gap 24 H Blood Urea Nitrogen 7 Creatinine 0.79 Glucose Level 103 Calcium Level 9.0 Creatine Kinase Index 0.8 Creatinine Kinase MB (Mass) 11.90 H Medications Medications Current Medications Sodium Bicarbonate 100 meq/Dextrose 1,100 ml @ 75 mls/hr [id number] IV Last administered on 01/26/17 11:52; Admin Dose 75 MLS/HR; Start 01/26/17 at 11:00 Sodium Chloride (NS) 1,000 ml @ 125 mls/hr Q8H IV Last administered on 11:53; Admin Dose 125 MLS/HR; Start 01/26/17 at 10:59 Ondansetron HCl (Zofran Inj) 4 mg Q6H PRN IV NAUSEA AND/OR VOMITING; Start at 11:00 Nitroglycerin (Nitroglycerin (Sl Tab) 0.4 Mg) 1 tab Q5M PRN SL CHEST PAIN; Start 01/26/17 at 11:00 Lorazepam (Ativan) 1 mg Q2H PRN IV ANXIETY; Start 01/26/17 at 11:00 Famotidine 20 mg 20 mg Q12 IV Last administered on 01/26/17 12:00; Admin Dose 20 MG; Start 01/26/17 at 12:00 Piperacillin Sod/ Tazobactam Sod (Zosyn 3.375gm/ 100 ml (Pmx)) 100 ml @ 200 mls /hr Q6 IVPB Last administered on 01/26/17 12:00; Admin Dose 200 MLS/HR; Start 01/26/17 at 12:00 Quetiapine Fumarate (Seroquel) 25 mg DAILY PRN PO AGITATION; Start 01/26/17 at 12:30 Atorvastatin Calcium (Lipitor) 40 mg HS PO ; Start 01/26/17 at 21:00 ALFIE HILTON MD Jan 26, 2017 16:48
[2017-01-26] MEDS ORDERED: ATORVASTATIN 40 MG TAB PO SCH (21:00)
[2017-01-26 23:00] LABS: PROTEIN/CREAT RATIO 1.13 RATIO
[2017-01-27] VITALS (23 sets, daily range): BP systolic 88–115; BP diastolic 51–80; PULSE 70–106; RESP 13–24
[2017-01-27] MEDS: LORAZEPAM 2 MG INJ IV PRN ×3 (00:19→15:35)
[2017-01-27] MEDS: ALBUTEROL/IPRATROPIUM (NEB) 3 ML AMP NEB SCH ×6 (01:51→21:08)
[2017-01-27] MEDS: SODIUM BICARBONATE (IV ADD) 100 MEQ in DEXTROSE 5% 1,000 ML IV SCH (02:10)
[2017-01-27] MEDS: SOD CHLORIDE 0.9% 1,000 ML IV SCH ×3 (03:47→20:59)
--- NOTE | 2017-01-27 04:46 | CONS ---
DATE OF ADMISSION: 01/26/2017 DATE OF CONSULTATION: 01/26/2017 REASON FOR CONSULTATION: Antibiotic management. HISTORY OF PRESENT ILLNESS: Fabian Morrell is a 51-year-old, unfortunate gentleman, who was brought in by ambulance and found altered and nonverbal. His past problems include: 1. Hypertension. 2. Hyperlipidemia. In the emergency room, his white count was 19.9, H and H 14.2 and 38.3, platelet count 367,000. BUN creatinine 8/0.81. The patient was started on Zosyn. His sodium was 122, potassium 3.4, chloride of 91, CO2 of 16, random glucose 131. He was found to have acute encephalopathy, rule out metabolic versus infectious etiologies. Patient had a CPK of 1333. Lactic acid was 2.3. Drug toxicology was negative. Urinalysis 2+ ketones, 3+ glucose, no white cells. The patient was treated with normal saline. Ativan for agitation. Ceftriaxone was started as well. PAST MEDICAL HISTORY: Operations as outlined. FAMILY HISTORY: Noncontributory. SOCIAL HISTORY: No history of smoking, drinking, or abusing drugs. ALLERGIES: NONE TO PENICILLIN, SULFA, OR FOODS. MEDICATION: Per chart. REVIEW OF SYSTEMS: As per HPI. PHYSICAL EXAMINATION: GENERAL: Patient is a disoriented, restless male, who is agitated. VITAL SIGNS: Stable. He is afebrile. SKIN: Without generalized rash. HEENT: Within normal limits. NECK: Supple. Lymph nodes nonpalpable. CHEST: Decreased breath sounds at the bases. HEART: Without murmur or gallop. ABDOMEN: Soft, nontender, without organosplenomegaly or masses. EXTREMITIES: Without cyanosis, clubbing, or edema. RECTAL AND GENITAL: Exams deferred. NEUROLOGICAL: The patient is not verbally responsive. Moves all extremities. No focal neurological abnormalities. IMPRESSION AND PLAN: The patient, therefore, with acute encephalopathy, hyponatremia, sepsis of unknown etiology, rhabdomyolysis, hypokalemia, hypertension, dyslipidemia. The patient was started on Zosyn. He initially had ceftriaxone. A CT scan of the thorax showed no CT evidence of pulmonary embolus. A chest x-ray showed no evidence of acute cardiopulmonary process. As noted, white count was 19.9, leukocyte esterase was negative. We will continue him on current therapy with Zosyn. An MRI, EEG, lumbar puncture are all scheduled as well as 2D echocardiogram. Neurology consult as well. I will dictate my findings to the hospitalist. Dictated By: Chinedu Kinsey MD JD/analia/yolis /Document#: [id number]
[2017-01-27 05:01] LABS: BASOPHILS % 0.3 % (0.0-2.0); HEMATOCRIT 38.1 % (42.0-52.0); HEMOGLOBIN 13.2 g/dl (14.0-18.0); LYMPHOCYTES # 1.2 10^3/ul (0.8-2.9); LYMPHOCYTES % 12.5 % (15.0-51.0); MEAN CORPUSCULAR HEMOGLOBIN 29.8 pg (29.0-33.0); MEAN CORPUSCULAR HGB CONC 34.6 g/dl (32.0-37.0); MEAN PLATELET VOLUME 9.5 fl (7.4-10.4); MONOCYTE # 1.2 10^3/ul (0.3-0.9); MONOCYTES % 12.1 % (0.0-11.0); NEUTROPHILS % 74.9 % (39.0-77.0); PLATELET COUNT 280 10^3/UL (140-415); RED BLOOD COUNT 4.43 10^6/ul (4.70-6.10); RED CELL DISTRIBUTION WIDTH 12.9 % (11.5-14.5); WHITE BLOOD COUNT 9.7 10^3/ul (4.8-10.8)
[2017-01-27 05:20] LABS: CHOL/HDL RATIO 1.9 RATIO
[2017-01-27 05:47] LABS: ALBUMIN 3.7 g/dl (3.3-4.9); ALBUMIN/GLOBULIN RATIO 1.32; BILIRUBIN,INDIRECT 0.3 mg/dl (0-1.1); BILIRUBIN,TOTAL 0.3 mg/dl (0.2-1.3); CALCIUM 8.5 mg/dl (8.4-10.2); CREATININE 0.87 mg/dl (0.61-1.24); MAGNESIUM 2.3 mg/dl (1.7-2.5); PHOSPHORUS 2.7 mg/dl (2.5-4.9); POTASSIUM 3.4 mmol/L (3.5-5.1); TOTAL PROTEIN 6.5 g/dl (6.1-8.1)
[2017-01-27 05:59] LABS: T3 UPTAKE 40.2 % (23.5-40.5)
[2017-01-27 06:12] LABS: THYROID STIMULATING HORMONE 2.01 MIU/L (0.465-4.680)
[2017-01-27] MEDS: PIPER-TAZO 3.375 GM IV (PMX) 100 ML IVPB SCH ×2 (06:12→11:23)
[2017-01-27] MEDS: FAMOTIDINE 20 MG INJ IV SCH ×2 (08:38→21:04)
[2017-01-27] MEDS ORDERED: LOSARTAN 25 MG TAB PO SCH (09:00)
--- NOTE | 2017-01-27 09:08 | PN ---
Date/Time of Note Date/Time of Note DATE: 01/27/17 TIME: 09:08 Assessment/Plan VTE Prophylaxis VTE Prophylaxis Intervention: SCD's Lines/Catheters IV Catheter Type (from [facility]): Peripheral IV Urinary Cath still in place: Yes Reason Cath still needed: other (indicate) Assessment/Plan Chief Complaint/Hosp Course 1. Acute encephalopathy with severe metabolic abnormalities (hyponatremia, lactic acidosis, low bicarb, elevated CK) in a patient with no known alcohol or other drug-intoxication: Rule out Hypoxic-ischemic encephalopathy vs Septic/ infectious encephalopathy vs toxic-metabolic encephalopathy of other etiologies. CT negative for acute infarct or hemorrhage-however, there is more artifact due to motion. -Pending further Stroke workup with MRI in AM and EEG to rule out seizure -Pending diagnostic lumbar puncture to rule out possible HOSPITALITY AMBASSADOR infection -Neurology on board and will follow recommendation. -Seroquel as needed for agitation -Continue with seizure and aspiration precaution 2. Hyponatremia of unknown etiology-Rule out SIADH. -Nephrology is on board and sodium is corrected. -Seizure precaution 3. Sepsis of unknown etiology. Leukocytosis and lactic acidosis resolved. -Follow-up with LP fluid studies and pancultures -Continue with broad-spectrum antibiotics and follow-up with ID recommendation. 4. Elevated troponin: Rule out ACS versus underlying rhabdo. No normalized -Cardiology consult appreciated and will follow recommendation. 5.Severe anion-gap Metabolic acidosis. Resolved 6.Rhabdomyolysis -Continue IV fluids 7. Hypokalemia, mild. -Defer nephrology 8. Hypertension.stable -Resume home medications once stable for p.o. 9. Dyslipidemia. Stable lipid panel -Resume statin once able to take p.o. 10.Right hand bug bite vs others? -ID to evaluate DVT prophylaxis: SCDs-we will consider prophylactic anticoagulation after MRI follow-up PUD prophylaxis: Pepcid Plan: Follow-up with LP fluid studies, MRI and cultures. Speech therapy has been ordered. Continue current medical management and follow-up with consultants recommendations. 60 minutes critical care time spent. Continue ICU care Case discussed with Dr. Bloom. Problems: Subjective 24 Hr Interval Summary Free Text/Dictation Currently, patient is sedated. Arouses on voice commands. Still with confusion.On bilateral soft wrist restrains. Exam/Review of Systems Vital Signs Vitals Vital Signs Date Time Temp Pulse Resp B/P Pulse Ox O2 Delivery O2 Flow Rate FiO2 8/15/17 08:00 98.5 89 16 107/65 100 Nasal Cannula 01/27/17 04:37 2.0 Intake and Output 01/26/17 01/26/17 01/27/17 15:00 23:00 07:00 Intake Total 1400 ml 1300 ml 785 ml Output Total 600 ml 650 ml 450 ml Balance 800 ml 650 ml 335 ml Exam General: Disoriented, moving around, restless and agitated. HEENT: Normocephalic, Atraumatic, No laceration or hematoma; Eyes: PEERL, Conjunctiva clear, Anicteric sclera Neck: Supple without any lymphadenopathy, nontender, no JVD, no carotid bruits, trachea midline, no thyromegaly Cardiac: S1, S2 auscultated, regular rhythm and rate, no mumurs or gallop Pulmonary: Normal respiratory effort. Chest clear to auscultation bilaterally, no adventitious breath sounds GI: Abdomen normal to inspection. Soft, non tender, non- distended, no masses, no rebound tenderness or guarding. Bowel sounds active on all four quadrants Genitourinary: Deferred Extremities: Right hand with erythema/mild swelling with 2 sharp entry ports of bite.,no cyanosis, clubbing, or edema. Pulses [2+] bilaterally. Full ROM on all four extremities. No focal weakness appreciated. Neurologic: Delirious+, not verbally responsive. Moves around, restless and disoriented 4 Skin: Clean,dry, and intact. No ecchymosis, no rashes, or lesions Results Result Diagram: 01/27/17 0435 01/27/17 0435 Results 24 hrs Laboratory Tests Test 01/26/17 10:00 01/26/17 12:20 01/26/17 12:30 01/26/17 14:00 Lactic Acid Level 2.3 *H 2.4 *H 4.1 *H Magnesium Level 2.0 Total Bilirubin 0.6 Direct Bilirubin 0.00 Indirect Bilirubin 0.6 Aspartate Amino Transf (AST/SGOT) 47 H Alanine Aminotransferase (ALT/SGPT) 43 Alkaline Phosphatase 93 Ammonia < 9 L Creatine Kinase 1333 H 1560 H Total Protein 7.3 Albumin 4.5 Thyroid Stimulating Hormone (TSH) 0.945 Uric Acid 7.7 Troponin I 0.131 *H 0.123 *H Osmolality 265 L Sodium Level 133 L Potassium Level 4.5 Chloride Level 99 Carbon Dioxide Level 15 L Anion Gap 24 H Blood Urea Nitrogen 7 Creatinine 0.79 Glucose Level 103 Calcium Level 9.0 Creatine Kinase Index 0.8 Creatinine Kinase MB (Mass) 11.90 H Test 01/26/17 20:30 01/26/17 23:30 01/27/17 04:35 Urine Osmolality 215 L Urine Random Creatinine 35.24 Urine Random Sodium 53 Urine Protein/Creatinine Ratio 1.13 Urine Total Protein 40.0 H Troponin I 0.070 White Blood Count 9.7 # Red Blood Count 4.43 L Hemoglobin 13.2 L Hematocrit 38.1 L Mean Corpuscular Volume 86.0 Mean Corpuscular Hemoglobin 29.8 Mean Corpuscular Hemoglobin Concent 34.6 Red Cell Distribution Width 12.9 Platelet Count 280 # Mean Platelet Volume 9.5 Neutrophils % 74.9 Lymphocytes % 12.5 L Monocytes % 12.1 H Eosinophils % 0.0 Basophils % 0.3 Nucleated Red Blood Cells % 0.0 Neutrophils # (Manual) 7.3 Lymphocytes # 1.2 Monocytes # 1.2 H Eosinophils # 0.0 Basophils # 0.0 Nucleated Red Blood Cells # 0.0 Sodium Level 142 Potassium Level 3.4 L Chloride Level 104 Carbon Dioxide Level 26 # Anion Gap 15 # Blood Urea Nitrogen 5 L Creatinine 0.87 Glucose Level 119 Lactic Acid Level 1.8 Calcium Level 8.5 Phosphorus Level 2.7 Magnesium Level 2.3 Total Bilirubin 0.3 Direct Bilirubin 0.00 Indirect Bilirubin 0.3 Aspartate Amino Transf (AST/SGOT) 103 #H Alanine Aminotransferase (ALT/SGPT) 45 Alkaline Phosphatase 74 Total Protein 6.5 Albumin 3.7 Globulin 2.80 Albumin/Globulin Ratio 1.32 Triglycerides Level 71 Cholesterol Level 81 L LDL Cholesterol, Calculated 25 HDL Cholesterol 42 Cholesterol/HDL Ratio 1.9 Vitamin B12 Level Pending Thyroid Stimulating Hormone (TSH) 2.010 Free Thyroxine Index 2.09 Thyroxine (T4) 5.2 L Triiodothyronine (T3) Uptake 40.2 Random Cortisol 8.8 Medications Medications Current Medications Sodium Chloride (NS) 1,000 ml @ 125 mls/hr Q8H IV Last administered on t 03:47; Admin Dose 125 MLS/HR; Start 01/26/17 at 10:59 Ondansetron HCl (Zofran Inj) 4 mg Q6H PRN IV NAUSEA AND/OR VOMITING; Start at 11:00 Nitroglycerin (Nitroglycerin (Sl Tab) 0.4 Mg) 1 tab Q5M PRN SL CHEST PAIN; Start 01/26/17 at 11:00 Lorazepam (Ativan) 1 mg Q2H PRN IV ANXIETY Last administered on 01/27/17 02:10 ; Admin Dose 1 MG; Start 01/26/17 at 11:00 Famotidine 20 mg 20 mg Q12 IV Last administered on 01/27/17 08:38; Admin Dose 20 MG; Start 01/26/17 at 12:00 Piperacillin Sod/ Tazobactam Sod (Zosyn 3.375gm/ 100 ml (Pmx)) 100 ml @ 200 mls /hr Q6 IVPB Last administered on 01/27/17 06:12; Admin Dose 200 MLS/HR; Start 01/26/17 at 12:00 Quetiapine Fumarate (Seroquel) 25 mg DAILY PRN PO AGITATION; Start 01/26/17 at 12:30 Atorvastatin Calcium (Lipitor) 40 mg HS PO ; Start 01/26/17 at 21:00 MONET FLORES NP Jan 27, 2017 09:08
--- NOTE | 2017-01-27 10:01 | CONS ---
Date/Time of Note Date/Time of Note DATE: 01/27/17 TIME: 09:54 Assessment/Plan Assessment/Plan Chief Complaint/Hosp Course Assessment/Plan 1. Acute encephalopathy of unclear etiology. Concern for possible meningitis/ encephalitis. Will need neurology evaluation possible lumbar puncture. Would benefit from MRI. 2. Mild rhabdomyolysis. Continue hydration as tolerated. Hyponatremia also noted. Questionable SIADH secondary to GASKET INSPECTOR disorder.. Will need a renal consult. We will continue with daily 3. Leukocytosis. Possible aspiration component continue broad-spectrum antibiotic coverage pending culture results. Consider empiric antiviral therapy with acyclovir for possible herpes encephalitis. 4. Aspiration precautions and speech therapy evaluation. Disposition Keep in intensive care unit. Problems: Consultation Date/Type/Reason Admit Date/Time 01/26/2017 Date of Consultation: Jan 27, 2017 Type of Consultation: Pulmonary Reason for Consultation Critical care management Hx of Present Illness Assessment/Plan This is a 51-year-old male who was brought by ambulance after found altered and nonverbal. 1. Acute encephalopathy with severe metabolic abnormalities (hyponatremia, lactic acidosis, low bicarb, elevated CK) in a patient with no known alcohol or other drug-intoxication: Rule out Hypoxic-ischemic encephalopathy vs Septic/ infectious encephalopathy vs toxic-metabolic encephalopathy of other etiologies. CT negative for acute infarct or hemorrhage-however, there is more artifact due to motion. -ICU admission -Further Stroke rule out with MRI in AM and EEG to rule out seizure -Septic work up with diagnostic lumbar puncture to rule out possible GASKET INSPECTOR infection and pancultures for other bacteremia work-up -Rule out cardiac ischemic events with 2D echocardiogram, EKG and serial troponin -Rule out further electrolyte abnormalities other than existing hyponatremia- obtain repeat sodium lvel, add mag, calcium and PO4 level -Rule out other endocrinopathies with a Thyroid profile,B12 level and A1C -Will also request a Neurology consult- Ativan low dose PRN for now as pt is very agitated and will defer neurology for better choice of GASKET INSPECTOR agents -Patient will be kept on a seizure and aspiration precautions 2. Hyponatremia of unknown etiology-Rule out SIADH. Ofnote, no seizure activities reported. -We will call nephrology consult-Needs further urine studies and this will be deferred to out nephrology team. For now, patient will be treated with IV fluids. -Monitor sodium level closely. -Seizure precaution 3. Sepsis of unknown etiology. -Obtain pancultures -Proceed with LP and follow-up with LP fluid studies -Start patient on broad-spectrum antibiotics , systemic hydration and will seek ID consult 4.Severe anion-gap Metabolic acidosis -Start systemic hydration and defer nephrology for bicarb treatment. 5.Possible early Rhabdomyolysis -We will treat with IV fluids. Monitor CK 6. Hypokalemia, mild -Defer nephrology 7. Hypertension-Now stable -Resume home medications once stable for p.o. 8. Dyslipidemia -Resume statin once able to take p.o. DVT prophylaxis: SCDs-we will consider prophylactic anticoagulation after MRI follow-up PUD prophylaxis: Pepcid Plan: Patient will be admitted to intensive care unit for closer neurovascular checks. He will need restraints as he is very agitated at this time.Patient will have nephrology, neurology and ID evaluation. For now, he will be kept n.p.o. with seizure and aspiration precaution. Electrolyte levels will be monitored closely with close sodium monitoring. Neurochecks will be monitored as well. Follow-up with serial troponins,LP studies,MRI,echo, EEG and other ordered labs/tests. Patient will be placed on DVT and PUD prophylaxis. Abstain from chemical anticoag at this time and will reevaluate in AM. Patient will be also followed by composing machine operator/tender. The rest of the management depend on clinical course, further studies and input from consultants. CONDITION UP ON ARRIVAL:CRITICAL Approximately 60 minutes was spent on this history and physical. A 51-year-old gentleman with multiple medical problems presented yesterday with altered mental status. Apparently had been hiking the previous day with no significant neurological disorders. He was found altered delirious confused. Hemodynamically stable. No history of substance abuse per chart. Initial CT of the brain showed no acute infarct or hemorrhage. This morning he is somewhat more alert responding to some questions but still not at baseline. In addition he was found to have leukocytosis hyponatremia and mild lactic acidosis with elevated CK consistent with mild rhabdomyolysis. Initial drug toxicology was negative patient was treated with broad-spectrum antibiotics and fluid resuscitation. Past medical history includes hypertension hyperlipidemia per chart Currently unable to perform. Past Medical History Hypertension hyperlipidemia Medical History: hypertension Past Surgical History Past Surgical Hx: other (unable to obtain ) Social History Alcohol Use: none Smoking Status: Unknown if ever smoked Drug Use: other (unable to obtain ) Exam/Review of Systems Vital Signs Vitals Vital Signs Date Time Temp Pulse Resp B/P Pulse Ox O2 Delivery O2 Flow Rate FiO2 01/27/17 08:00 98.5 89 16 107/65 100 Nasal Cannula 01/27/17 04:37 2.0 Intake and Output 01/26/17 01/26/17 01/27/17 15:00 23:00 07:00 Intake Total 1400 ml 1300 ml 785 ml Output Total 600 ml 650 ml 450 ml Balance 800 ml 650 ml 335 ml Exam GENERAL: Young gentleman comfortable at rest no acute distress. Mildly confused but responds to some questions appropriately. VITAL SIGNS: per chart NECK: Supple. No JVD or lymphadenopathy. CARDIAC EXAM: S1, S2. No added sounds or murmurs. CHEST: clear bilaterally, No added sounds, rales or wheezes ABDOMEN: Soft, nontender. No guarding or rebound. EXTREMITIES: No cyanosis, clubbing or edema. NEUROLOGIC: Generalized weakness. No focal deficits. Skin. No rashes or bites noted. Results Result Diagram: 01/27/17 0435 01/27/17 0435 Results 24 hrs Laboratory Tests Test 01/26/17 10:00 01/26/17 12:20 01/26/17 12:30 01/26/17 14:00 Lactic Acid Level 2.3 *H 2.4 *H 4.1 *H Magnesium Level 2.0 Total Bilirubin 0.6 Direct Bilirubin 0.00 Indirect Bilirubin 0.6 Aspartate Amino Transf (AST/SGOT) 47 H Alanine Aminotransferase (ALT/SGPT) 43 Alkaline Phosphatase 93 Ammonia < 9 L Creatine Kinase 1333 H 1560 H Total Protein 7.3 Albumin 4.5 Thyroid Stimulating Hormone (TSH) 0.945 Uric Acid 7.7 Troponin I 0.131 *H 0.123 *H Osmolality 265 L Sodium Level 133 L Potassium Level 4.5 Chloride Level 99 Carbon Dioxide Level 15 L Anion Gap 24 H Blood Urea Nitrogen 7 Creatinine 0.79 Glucose Level 103 Calcium Level 9.0 Creatine Kinase Index 0.8 Creatinine Kinase MB (Mass) 11.90 H Test 01/26/17 20:30 01/26/17 23:30 01/27/17 04:35 Urine Osmolality 215 L Urine Random Creatinine 35.24 Urine Random Sodium 53 Urine Protein/Creatinine Ratio 1.13 Urine Total Protein 40.0 H Troponin I 0.070 White Blood Count 9.7 # Red Blood Count 4.43 L Hemoglobin 13.2 L Hematocrit 38.1 L Mean Corpuscular Volume 86.0 Mean Corpuscular Hemoglobin 29.8 Mean Corpuscular Hemoglobin Concent 34.6 Red Cell Distribution Width 12.9 Platelet Count 280 # Mean Platelet Volume 9.5 Neutrophils % 74.9 Lymphocytes % 12.5 L Monocytes % 12.1 H Eosinophils % 0.0 Basophils % 0.3 Nucleated Red Blood Cells % 0.0 Neutrophils # (Manual) 7.3 Lymphocytes # 1.2 Monocytes # 1.2 H Eosinophils # 0.0 Basophils # 0.0 Nucleated Red Blood Cells # 0.0 Sodium Level 142 Potassium Level 3.4 L Chloride Level 104 Carbon Dioxide Level 26 # Anion Gap 15 # Blood Urea Nitrogen 5 L Creatinine 0.87 Glucose Level 119 Lactic Acid Level 1.8 Calcium Level 8.5 Phosphorus Level 2.7 Magnesium Level 2.3 Total Bilirubin 0.3 Direct Bilirubin 0.00 Indirect Bilirubin 0.3 Aspartate Amino Transf (AST/SGOT) 103 #H Alanine Aminotransferase (ALT/SGPT) 45 Alkaline Phosphatase 74 Total Protein 6.5 Albumin 3.7 Globulin 2.80 Albumin/Globulin Ratio 1.32 Triglycerides Level 71 Cholesterol Level 81 L LDL Cholesterol, Calculated 25 HDL Cholesterol 42 Cholesterol/HDL Ratio 1.9 Vitamin B12 Level 464 Thyroid Stimulating Hormone (TSH) 2.010 Free Thyroxine Index 2.09 Thyroxine (T4) 5.2 L Triiodothyronine (T3) Uptake 40.2 Random Cortisol 8.8 Medications Medications Current Medications Sodium Chloride (NS) 1,000 ml @ 125 mls/hr Q8H IV Last administered on 03:47; Admin Dose 125 MLS/HR; Start 01/26/17 at 10:59 Ondansetron HCl (Zofran Inj) 4 mg Q6H PRN IV NAUSEA AND/OR VOMITING; Start at 11:00 Nitroglycerin (Nitroglycerin (Sl Tab) 0.4 Mg) 1 tab Q5M PRN SL CHEST PAIN; Start 01/26/17 at 11:00 Lorazepam (Ativan) 1 mg Q2H PRN IV ANXIETY Last administered on 01/27/17 02:10 ; Admin Dose 1 MG; Start 01/26/17 at 11:00 Famotidine 20 mg 20 mg Q12 IV Last administered on 01/27/17 08:38; Admin Dose 20 MG; Start 01/26/17 at 12:00 Piperacillin Sod/ Tazobactam Sod (Zosyn 3.375gm/ 100 ml (Pmx)) 100 ml @ 200 mls /hr Q6 IVPB Last administered on 01/27/17 06:12; Admin Dose 200 MLS/HR; Start 01/26/17 at 12:00 Quetiapine Fumarate (Seroquel) 25 mg DAILY PRN PO AGITATION; Start 01/26/17 at 12:30 Atorvastatin Calcium (Lipitor) 40 mg HS PO ; Start 01/26/17 at 21:00 JONNATHAN DUNBAR MD, [facility] Jan 27, 2017 10:01
--- NOTE | 2017-01-27 10:30 | CONS ---
Date/Time of Note Date/Time of Note DATE: 01/27/17 TIME: 10:28 Consult Date/Type/Reason Admit Date/Time Jan 26, 2017 at 13:58 Initial Consult Date 01/27/17 Type of Consultation: Neurology Reason for Consultation encephalopathy Ordering Provider: MONET FLORES NP Subjective remains drowsy in the ICU Na: 142 today per friends at bedside he was able to state their name today, no seizures Objective Vital Signs Date Time Temp Pulse Resp B/P Pulse Ox O2 Delivery O2 Flow Rate FiO2 01/27/17 10:00 91 17 95/56 100 Room Air 01/27/17 09:56 1.0 01/27/17 08:00 98.5 Intake and Output 01/26/17 01/26/17 01/27/17 15:00 23:00 07:00 Intake Total 1400 ml 1300 ml 785 ml Output Total 600 ml 650 ml 450 ml Balance 800 ml 650 ml 335 ml Exam Exam awake with eyes open unable to follow commands non-verbal moving around the bed agitated CN: TRUDY Dolls intact corneals and gag present Motor w/d in all extremities to noxious Reflexes 1+ throughout toes are downgoing withdraws appropriately poorly cooperative for remainder of exam Results/Medications Result Diagram: 01/27/17 0435 01/27/17 0435 Results 24 hrs Laboratory Tests Test 01/26/17 12:20 01/26/17 12:30 01/26/17 14:00 01/26/17 20:30 Lactic Acid Level 2.4 *H 4.1 *H Uric Acid 7.7 Troponin I 0.131 *H 0.123 *H Osmolality 265 L Sodium Level 133 L Potassium Level 4.5 Chloride Level 99 Carbon Dioxide Level 15 L Anion Gap 24 H Blood Urea Nitrogen 7 Creatinine 0.79 Glucose Level 103 Calcium Level 9.0 Creatine Kinase 1560 H Creatine Kinase Index 0.8 Creatinine Kinase MB (Mass) 11.90 H Urine Osmolality 215 L Urine Random Creatinine 35.24 Urine Random Sodium 53 Urine Protein/Creatinine Ratio 1.13 Urine Total Protein 40.0 H Test 01/26/17 23:30 01/27/17 04:35 Troponin I 0.070 White Blood Count 9.7 # Red Blood Count 4.43 L Hemoglobin 13.2 L Hematocrit 38.1 L Mean Corpuscular Volume 86.0 Mean Corpuscular Hemoglobin 29.8 Mean Corpuscular Hemoglobin Concent 34.6 Red Cell Distribution Width 12.9 Platelet Count 280 # Mean Platelet Volume 9.5 Neutrophils % 74.9 Lymphocytes % 12.5 L Monocytes % 12.1 H Eosinophils % 0.0 Basophils % 0.3 Nucleated Red Blood Cells % 0.0 Neutrophils # (Manual) 7.3 Lymphocytes # 1.2 Monocytes # 1.2 H Eosinophils # 0.0 Basophils # 0.0 Nucleated Red Blood Cells # 0.0 Sodium Level 142 Potassium Level 3.4 L Chloride Level 104 Carbon Dioxide Level 26 # Anion Gap 15 # Blood Urea Nitrogen 5 L Creatinine 0.87 Glucose Level 119 Hemoglobin A1c 5.5 Lactic Acid Level 1.8 Calcium Level 8.5 Phosphorus Level 2.7 Magnesium Level 2.3 Total Bilirubin 0.3 Direct Bilirubin 0.00 Indirect Bilirubin 0.3 Aspartate Amino Transf (AST/SGOT) 103 #H Alanine Aminotransferase (ALT/SGPT) 45 Alkaline Phosphatase 74 Total Protein 6.5 Albumin 3.7 Globulin 2.80 Albumin/Globulin Ratio 1.32 Triglycerides Level 71 Cholesterol Level 81 L LDL Cholesterol, Calculated 25 HDL Cholesterol 42 Cholesterol/HDL Ratio 1.9 Vitamin B12 Level 464 Thyroid Stimulating Hormone (TSH) 2.010 Free Thyroxine Index 2.09 Thyroxine (T4) 5.2 L Triiodothyronine (T3) Uptake 40.2 Random Cortisol 8.8 Medications Current Medications Sodium Chloride (NS) 1,000 ml @ 125 mls/hr Q8H IV Last administered on 03:47; Admin Dose 125 MLS/HR; Start 01/26/17 at 10:59 Ondansetron HCl (Zofran Inj) 4 mg Q6H PRN IV NAUSEA AND/OR VOMITING; Start at 11:00 Nitroglycerin (Nitroglycerin (Sl Tab) 0.4 Mg) 1 tab Q5M PRN SL CHEST PAIN; Start 01/26/17 at 11:00 Lorazepam (Ativan) 1 mg Q2H PRN IV ANXIETY Last administered on 01/27/17 02:10 ; Admin Dose 1 MG; Start 01/26/17 at 11:00 Famotidine 20 mg 20 mg Q12 IV Last administered on 01/27/17 08:38; Admin Dose 20 MG; Start 01/26/17 at 12:00 Piperacillin Sod/ Tazobactam Sod (Zosyn 3.375gm/ 100 ml (Pmx)) 100 ml @ 200 mls /hr Q6 IVPB Last administered on 01/27/17t 06:12; Admin Dose 200 MLS/HR; Start 01/26/17 at 12:00 Quetiapine Fumarate (Seroquel) 25 mg DAILY PRN PO AGITATION; Start 01/26/17 at 12:30 Atorvastatin Calcium (Lipitor) 40 mg HS PO ; Start 01/26/17 at 21:00 Assessment/Plan Chief Complaint/Hosp Course 51 year old male with HTN, HLD was hiking yesterday and returned home found by his roommate unresponsive with severe metabolic abnormalities: hyponatremia, elevated lactic acid and leukocytosis with shift. He remains encephalopathic. Recommendations: -avoid ativan due to inability to monitor his neurologic status, if needed for agitation recommended low dose Seroquel 25 mg daily prn -rule out STAVE JOINTER infection given elevated WBC and AMS- recommend LP may be done under IR, Cell Count, Protein, Glucose, Cultures, Fungal, Bacterial cultures, Viral encephalitis panel, HSV I,II PCR, full infectious work up -MRI Brain without contrast -Routine EEG completed- to be reviewed -nephrology following, recommend slow Sodium correction not to exceed 10 mmol/L/ 24 hours to avoid CPM -for now felicia Bailey no clear history of seizure will review EEG and MRI and re- order if necessary -c/w ICU monitoring Problems: JOAN MATIAS MD Jan 27, 2017 10:30
[2017-01-27 12:00] LABS: AADO2 Arterial 19.4 mmHg (7.0-24.0); Allen Test ACCEPTAB; Arterial Base Excess -1.8 mmol/L (-3.0-3); Arterial COHb 0.3 % (0.0-3.0); Arterial Fraction of Oxyhgb 97.8 % (93.0-99.0); Arterial HCO3 21.6 mmol/L (22.0-26.0); Arterial MetHb 0.1 % (0.0-1.5); Arterial Total Hemglobin 13.7 g/dl (12.0-18.0); MODE NASAL CANNULA
[2017-01-27 12:52] LABS: CALCIUM 8.5 mg/dl (8.4-10.2); CREATININE 0.83 mg/dl (0.61-1.24); POTASSIUM 3.4 mmol/L (3.5-5.1)
[2017-01-27] MEDS ORDERED: CEFTRIAXONE 2 GM/50 ML (PMX) 50 ML IVPB SCH (13:00)
[2017-01-27] MEDS ORDERED: VANCOMYCIN IV PER PHARMACY XX SCH (13:00)
[2017-01-27] MEDS ORDERED: VANCOMYCIN 1.5 GM in SOD CHLORIDE 0.9% 250 ML IVPB ONE (13:00)
[2017-01-27] MEDS: FLUCONAZOLE 200 MG/NS (PMX) 100 ML IVPB SCH (13:41)
--- NOTE | 2017-01-27 14:02 | PN ---
DATE: 01/27/2017 SUBJECTIVE DATA: No events overnight. The patient is lethargic, arousable, but very confused., Does not follow commands. He is in no distress. No fevers. Temperature 98.5, pulse 80, respirations 16, blood pressure 107/65, saturation 100 percent on nasal cannula. WBC 9.7, H and H 13.2 and 38.1, platelets 288,000; neutrophils 74.9, no bands. Sodium 142, potassium 3.4, BUN 5, creatinine 0.87, normal bilirubin, ALT 45, AST 103, alk phos 74. Ammonia on admission was less than 9. Lactic acid 1.8. Microbiology: Blood and urine cultures so far negative. Urine drug screen was also negative on admission. CT of the chest revealed no evidence of pulmonary emboli. Chest x-ray on admission revealed no evidence of acute cardiopulmonary process. CT of the brain revealed no gross hemorrhage or large territorial infarction, although the study was markedly limited due to gross patient motion. ANTIMICROBIALS: The patient is on Zosyn. PHYSICAL EXAMINATION: GENERAL: This is a well-developed, well-nourished, middle-aged, man who is lying comfortably in bed. The patient again is obtunded, arousable; however, does not follow commands and falls asleep without stimulation. HEENT: Head atraumatic, normocephalic. Sclerae anicteric. Buccal mucosa dry. NECK: Supple. CHEST: Rise symmetrical. Breath sounds diminished at the bases. HEART: S1, S2. ABDOMEN: Soft, bowel sounds present. EXTREMITIES: Without cyanosis. SKIN: No jaundice. No cyanosis. ASSESSMENT: 1. Acute encephalopathy, etiology unclear, rule out meningitis. Neurology on the case. LP was ordered with cerebrospinal fluid orders for cell count, protein, glucose, cultures, fungal, bacterial and viral panel, also HSV by PCR. 2. Questionable sepsis with leukocytosis and lactic acidosis on admission. 3. History of hypertension per report. PLAN: Hemodynamically stable, will add West Nile virus to CSF studies, start vancomycin, acyclovir, Rocephin, Ampicillin and fluconazole, check HIV serologies. Continue supportive care, anti-aspiration measures. Reji ENCARNACION RN Dictated By: Sally Gonzales NP /analia/ec /Document#: [id number] MTDD
--- NOTE | 2017-01-27 14:07 | CONS ---
Date/Time of Note Date/Time of Note DATE: 01/27/17 TIME: 14:02 Consult Date/Type/Reason Admit Date/Time Jan 26, 2017 at 13:58 Initial Consult Date 01/27/17 Type of Consultation: Neurology Ordering Provider: MONET FLORES NP Subjective Discussed with a several day history was reviewed. Patient remained in sinus rhythm. Patient is less agitated but appeared to be still confused. He denies any pain to me including any muscle pain any chest pain. Patient is sitting ICU for close monitoring. OBJECTIVE: General: no acute distress HEENT: NC/AT. pupils are equal. round. NECK: NO JVD. no stridor. CV: RRR. systolic murmur; no gallop or rubs. PULM: no wheezing or rhonchi. GI: SOFT, NT, ND, no rebound or guarding Extremity: trace B/L LE edema. no clubbing. neuro: awake and alert, OX1. Psych: calm and pleasant rectal: deferred : normal ECHOCARDIOGRAM was personally reviewed: Conclusions 1. Normal left ventricular systolic function. Mild concentric left ventricular hypertrophy. Ejection fraction is visually estimated at 55 %. Tissue Doppler/Mitral Doppler indices are consistent with impaired relaxation (Stage I diastolic dysfunction). 2. The left atrium is normal in size. 3. Normal appearance and function of the mitral valve with trace physiologic regurgitation. 4. Aortic sclerosis without stenosis. Trileaflet aortic valve. Trace to mild aortic valve regurgitation. 5. Normal appearance of the tricuspid valve. Estimated peak PA systolic pressure 37 mmHg. There is trace tricuspid regurgitation. Objective Vital Signs Date Time Temp Pulse Resp B/P Pulse Ox O2 Delivery O2 Flow Rate FiO2 01/27/17 13:00 96 19 115/80 100 Room Air 01/27/17 12:00 98.7 01/27/17 09:56 1.0 Intake and Output 01/26/17 01/26/17 01/27/17 15:00 23:00 07:00 Intake Total 1400 ml 1300 ml 785 ml Output Total 600 ml 650 ml 450 ml Balance 800 ml 650 ml 335 ml Results/Medications Result Diagram: 01/27/17 0435 01/27/17 1222 Results 24 hrs Laboratory Tests Test 01/26/17 20:30 01/26/17 23:30 01/27/17 04:35 01/27/17 11:10 Urine Osmolality 215 L Urine Random Creatinine 35.24 Urine Random Sodium 53 Urine Protein/Creatinine Ratio 1.13 Urine Total Protein 40.0 H Troponin I 0.070 White Blood Count 9.7 # Red Blood Count 4.43 L Hemoglobin 13.2 L Hematocrit 38.1 L Mean Corpuscular Volume 86.0 Mean Corpuscular Hemoglobin 29.8 Mean Corpuscular Hemoglobin Concent 34.6 Red Cell Distribution Width 12.9 Platelet Count 280 # Mean Platelet Volume 9.5 Neutrophils % 74.9 Lymphocytes % 12.5 L Monocytes % 12.1 H Eosinophils % 0.0 Basophils % 0.3 Nucleated Red Blood Cells % 0.0 Neutrophils # (Manual) 7.3 Lymphocytes # 1.2 Monocytes # 1.2 H Eosinophils # 0.0 Basophils # 0.0 Nucleated Red Blood Cells # 0.0 Sodium Level 142 Potassium Level 3.4 L Chloride Level 104 Carbon Dioxide Level 26 # Anion Gap 15 # Blood Urea Nitrogen 5 L Creatinine 0.87 Glucose Level 119 Hemoglobin A1c 5.5 Lactic Acid Level 1.8 Calcium Level 8.5 Phosphorus Level 2.7 Magnesium Level 2.3 Total Bilirubin 0.3 Direct Bilirubin 0.00 Indirect Bilirubin 0.3 Aspartate Amino Transf (AST/SGOT) 103 #H Alanine Aminotransferase (ALT/SGPT) 45 Alkaline Phosphatase 74 Total Protein 6.5 Albumin 3.7 Globulin 2.80 Albumin/Globulin Ratio 1.32 Triglycerides Level 71 Cholesterol Level 81 L LDL Cholesterol, Calculated 25 HDL Cholesterol 42 Cholesterol/HDL Ratio 1.9 Vitamin B12 Level 464 Thyroid Stimulating Hormone (TSH) 2.010 Free Thyroxine Index 2.09 Thyroxine (T4) 5.2 L Triiodothyronine (T3) Uptake 40.2 Random Cortisol 8.8 Blood Gas Specimen Source Blood arterial Arterial Blood Date Drawn 01/27/2017 11:30:18 AM Arterial Blood pH (Temp corrected) 7.436 Arterial Blood pCO2 (Temp correct) 32.9 L Arterial Blood pO2 (Temp corrected) 112.6 H Arterial Blood HCO3 21.6 L Arterial Blood Base Excess -1.8 Arterial Blood Oxygen Saturation 98.2 H Ramone Test ACCEPTAB Arterial Blood Gas Puncture Site Right Radial Arterial Blood Carboxyhemoglobin 0.3 Arterial Blood Methemoglobin 0.1 Blood Gas A-a O2 Differential 19.4 Oxyhemoglobin Percent 97.8 Total Hemoglobin 13.7 Blood Gas Temperature 37.0 Blood Gas Modality NASAL CANNULA FiO2 24.0 Blood Gas Notified Whom JLD Blood Gas Notified Time 01/27/2017 11:59:54 AM Test 01/27/17 12:22 Sodium Level 141 Potassium Level 3.4 L Chloride Level 105 Carbon Dioxide Level 26 Anion Gap 13 Blood Urea Nitrogen 4 L Creatinine 0.83 Glucose Level 97 Calcium Level 8.5 Medications Current Medications Sodium Chloride (NS) 1,000 ml @ 100 mls/hr Q10H IV Last administered on 11:22; Admin Dose 100 MLS/HR; Start 01/26/17 at 10:59 Ondansetron HCl (Zofran Inj) 4 mg Q6H PRN IV NAUSEA AND/OR VOMITING; Start at 11:00 Nitroglycerin (Nitroglycerin (Sl Tab) 0.4 Mg) 1 tab Q5M PRN SL CHEST PAIN; Start 01/26/17 at 11:00 Lorazepam (Ativan) 1 mg Q2H PRN IV ANXIETY Last administered on 01/27/17 02:10 ; Admin Dose 1 MG; Start 01/26/17 at 11:00 Famotidine (Pepcid Iv) 20 mg Q12 IV Last administered on 01/27/17 08:38; Admin Dose 20 MG; Start 01/26/17 at 12:00 Quetiapine Fumarate (Seroquel) 25 mg DAILY PRN PO AGITATION Last administered on 01/27/17 13:54; Admin Dose 25 MG; Start 01/26/17 at 12:30 Atorvastatin Calcium 40 mg 40 mg HS PO ; Start 01/26/17 at 21:00 Acyclovir 500 mg/ Sodium Chloride 100 ml @ 100 mls/hr Q8 IVPB ; Start 01/27/17 at 14:00 Fluconazole 100 ml @ 100 mls/hr Q24H IVPB Last administered on 01/27/17 13:41 ; Admin Dose 100 MLS/HR; Start 01/27/17 at 13:00 Ceftriaxone Sodium 50 ml @ 100 mls/hr Q24H IVPB Last administered on 13:42; Admin Dose 100 MLS/HR; Start 01/27/17 at 13:00 Ampicillin 100 ml @ 100 mls/hr Q6 IVPB ; Start 01/27/17 at 13:00 Vancomycin HCl/ Sodium Chloride (Vancocin/NS) 250 ml @ 83.333 mls/ hr Q12H IVPB ; Start 01/28/17 at 04:00 Assessment/Plan Chief Complaint/Hosp Course 1. Abnormal troponin: Doubt acute ND. Mostly secondary to troponin leak due to rhabdomyolysis. CK is markedly elevated but CK MB is not c/w false + troponin. 2. Altered level of consciousness/ encepphalopathy: defer to the primary internal medicine team. Follow-up with neurology recommendation. 3, history of hypertension currently stable off of meds. will monitor. 4. History of dyslipidemia on statin at home. 5. Electrolytes abnormalities and hyponatremia: Is being managed by the renal team. 6. Possible rhabdomyolysis. Electrolytes are being managed and adjusted as per renal recommendation. Follow neurological improvement of neurology recommendation MRI is pending We will continue to follow along with you. More than 35 minutes critical care time was spent in management and treatment of this critically ill patient excluding procedures. Thank you for this referral. Problems: DAY AMBRIZ MD Jan 27, 2017 14:07
--- NOTE | 2017-01-27 16:15 | RADRPT ---
PROCEDURE: MRI Brain without contrast. CLINICAL INDICATION: Altered mental status TECHNIQUE: Multiplanar MRI of the brain without contrast was performed on a 3.0 T scanner with the following sequences obtained: Diffusion weighted, GRE and T2-weighted FLAIR. The patient was confus ed and unable to hold still, and the examination could not be completed. COMPARISON: CT brain 01/26/2017 FINDINGS: This is an incomplete, limited evaluation with motion artifacts on the obtained sequences. No gross acute/recent ischemic infarction or intracranial hemorrhage is seen. No gross extra-axial fluid co llection, significant mass effect or midline shift is seen. The ventricles - sulci are grossly norm al in size and configuration. No obvious parenchymal signal abnormality is seen. IMPRESSION: 1. Limited, incomplete evaluation discussed above. 2. No gross acute intracranial pathology seen. RPTAT: VV .Alfredo Steele MD, MD Date Time Electronically viewed and signed by .Alfredo Steele MD, on 01/27/2017 16:14 .O/
[2017-01-27] MEDS ORDERED: POTASSIUM CHLORIDE 20 MEQ in SOD CHLORIDE 0.9% 100 ML IVPB ONE (16:30)
[2017-01-27] MEDS: AMPICILLIN 2 GM/NS (PMX) 100 ML IVPB SCH ×3 (16:54→23:48)
[2017-01-27] MEDS: ACYCLOVIR 500 MG in SOD CHLORIDE 0.9% 100 ML IVPB SCH ×2 (16:54→22:23)
--- NOTE | 2017-01-27 17:29 | CONS ---
Date/Time of Note Date/Time of Note DATE: 01/27/17 TIME: 17:25 Assessment/Plan Assessment/Plan Chief Complaint/Hosp Course 51 year old male with HTN, HLD was hiking yesterday and returned home found by his roommate unresponsive- he was brought in by Ambulance with altered mental status. He is noted with severe metabolic abnormalities: hyponatremia, elevated lactic acid and leukocytosis with shift. He remains encephalopathic- Currently his BP also dropped to systolic 80s Renal has been consulted for acute hyponatremia with Na 122, HCO3 16. Renal has been consulted for severe hyponatremia, Severe metabolic acidosis. Problems: Additional Assessment/Plan 1. acute metabolic encephalopathy vs Infectious encephalopathy 2. severe hyponatremia 3. severe metabolic acidosis 4. Hypokalemia 5. Sepsis with Hypotension 6. acute rhabdomyolysis Plan: pt is more alert today compared to yesteday but still intermittently gets confused IV abx for possible concern about sepsis d/c bicarbonater drip today AM decrease IVF rate to 55cc/hr, ABG and labs reviewed today afternoon, KCL 20mEQ IV x 1 dose now MRi brain limited but negative for acute findings, Neurology has been following patient Consultation Date/Type/Reason Admit Date/Time Jan 26, 2017 at 13:58 Initial Consult Date 01/26/17 Type of Consultation: NEPHROLOGY Referring Provider: MONET FLORES NP 24 HR Interval Summary Free Text/Dictation pt more alert today, IVF has been decreaed to 55, Bicarbonate stopped by me today AM, Exam/Review of Systems Vital Signs Vitals Vital Signs Date Time Temp Pulse Resp B/P Pulse Ox O2 Delivery O2 Flow Rate FiO2 01/27/17 17:00 76 17 115/64 96 Room Air 01/27/17 16:59 21 01/27/17 16:00 98.4 01/27/17 09:56 1.0 Intake and Output 01/26/17 01/26/17 01/27/17 15:00 23:00 07:00 Intake Total 1400 ml 1300 ml 785 ml Output Total 600 ml 650 ml 450 ml Balance 800 ml 650 ml 335 ml Exam Constitutional: other (Altered mental status ) Head: normocephalic ENMT: nl external ears & nose Neck: supple Respiratory: crackles/rales, diminished breath sounds, intercostal retraction Cardiovascular: nl pulses, regular rate and rhythm Gastrointestinal: non-tender, soft Extremities: normal pulses, + ca catheter Results Result Diagram: 01/27/17 0435 01/27/17 1222 Results 24 hrs Laboratory Tests Test 01/26/17 20:30 01/26/17 23:30 01/27/17 04:35 01/27/17 11:10 Urine Osmolality 215 L Urine Random Creatinine 35.24 Urine Random Sodium 53 Urine Protein/Creatinine Ratio 1.13 Urine Total Protein 40.0 H Troponin I 0.070 White Blood Count 9.7 # Red Blood Count 4.43 L Hemoglobin 13.2 L Hematocrit 38.1 L Mean Corpuscular Volume 86.0 Mean Corpuscular Hemoglobin 29.8 Mean Corpuscular Hemoglobin Concent 34.6 Red Cell Distribution Width 12.9 Platelet Count 280 # Mean Platelet Volume 9.5 Neutrophils % 74.9 Lymphocytes % 12.5 L Monocytes % 12.1 H Eosinophils % 0.0 Basophils % 0.3 Nucleated Red Blood Cells % 0.0 Neutrophils # (Manual) 7.3 Lymphocytes # 1.2 Monocytes # 1.2 H Eosinophils # 0.0 Basophils # 0.0 Nucleated Red Blood Cells # 0.0 Sodium Level 142 Potassium Level 3.4 L Chloride Level 104 Carbon Dioxide Level 26 # Anion Gap 15 # Blood Urea Nitrogen 5 L Creatinine 0.87 Glucose Level 119 Hemoglobin A1c 5.5 Lactic Acid Level 1.8 Calcium Level 8.5 Phosphorus Level 2.7 Magnesium Level 2.3 Total Bilirubin 0.3 Direct Bilirubin 0.00 Indirect Bilirubin 0.3 Aspartate Amino Transf (AST/SGOT) 103 #H Alanine Aminotransferase (ALT/SGPT) 45 Alkaline Phosphatase 74 Total Protein 6.5 Albumin 3.7 Globulin 2.80 Albumin/Globulin Ratio 1.32 Triglycerides Level 71 Cholesterol Level 81 L LDL Cholesterol, Calculated 25 HDL Cholesterol 42 Cholesterol/HDL Ratio 1.9 Vitamin B12 Level 464 Thyroid Stimulating Hormone (TSH) 2.010 Free Thyroxine Index 2.09 Thyroxine (T4) 5.2 L Triiodothyronine (T3) Uptake 40.2 Random Cortisol 8.8 Blood Gas Specimen Source Blood arterial Arterial Blood Date Drawn 01/27/2017 11:30:18 AM Arterial Blood pH (Temp corrected) 7.436 Arterial Blood pCO2 (Temp correct) 32.9 L Arterial Blood pO2 (Temp corrected) 112.6 H Arterial Blood HCO3 21.6 L Arterial Blood Base Excess -1.8 Arterial Blood Oxygen Saturation 98.2 H Ramone Test ACCEPTAB Arterial Blood Gas Puncture Site Right Radial Arterial Blood Carboxyhemoglobin 0.3 Arterial Blood Methemoglobin 0.1 Blood Gas A-a O2 Differential 19.4 Oxyhemoglobin Percent 97.8 Total Hemoglobin 13.7 Blood Gas Temperature 37.0 Blood Gas Modality NASAL CANNULA FiO2 24.0 Blood Gas Notified Whom JLD Blood Gas Notified Time 01/27/2017 11:59:54 AM Test 01/27/17 12:22 01/27/17 13:04 Sodium Level 141 Potassium Level 3.4 L Chloride Level 105 Carbon Dioxide Level 26 Anion Gap 13 Blood Urea Nitrogen 4 L Creatinine 0.83 Glucose Level 97 Calcium Level 8.5 HIV (1&2) Antibody NEGATIVE Medications Medications Current Medications Sodium Chloride (NS) 1,000 ml @ 100 mls/hr Q10H IV Last administered on 11:22; Admin Dose 100 MLS/HR; Start 01/26/17 at 10:59 Ondansetron HCl (Zofran Inj) 4 mg Q6H PRN IV NAUSEA AND/OR VOMITING; Start at 11:00 Nitroglycerin (Nitroglycerin (Sl Tab) 0.4 Mg) 1 tab Q5M PRN SL CHEST PAIN; Start 01/26/17 at 11:00 Lorazepam (Ativan) 1 mg Q2H PRN IV ANXIETY Last administered on 01/27/17 15:35 ; Admin Dose 1 MG; Start 01/26/17 at 11:00 Famotidine (Pepcid Iv) 20 mg Q12 IV Last administered on 01/27/17 08:38; Admin Dose 20 MG; Start 01/26/17 at 12:00 Quetiapine Fumarate (Seroquel) 25 mg DAILY PRN PO AGITATION Last administered on 01/27/17 13:54; Admin Dose 25 MG; Start 01/26/17 at 12:30 Atorvastatin Calcium 40 mg 40 mg HS PO ; Start 01/26/17 at 21:00; Status Future Hold Acyclovir 500 mg/ Sodium Chloride 100 ml @ 100 mls/hr Q8 IVPB Last administered on 01/27/17 16:54; Admin Dose 100 MLS/HR; Start 01/27/17 at 14:00 Fluconazole 100 ml @ 100 mls/hr Q24H IVPB Last administered on 01/27/17 13:41 ; Admin Dose 100 MLS/HR; Start 01/27/17 at 13:00 Ceftriaxone Sodium 50 ml @ 100 mls/hr Q24H IVPB Last administered on 13:42; Admin Dose 100 MLS/HR; Start 01/27/17 at 13:00 Ampicillin 100 ml @ 100 mls/hr Q6 IVPB Last administered on 01/27/17 16:54; Admin Dose 100 MLS/HR; Start 01/27/17 at 13:00 Vancomycin HCl 1.25 gm/Sodium Chloride 250 ml @ 83.333 mls/ hr Q12H IVPB ; Start 01/28/17 at 04:00 Potassium Chloride/Sodium Chloride (KCl/NS) 110 ml @ 55 mls/hr ONCE ONCE IVPB ; Start 01/27/17 at 16:30; Stop 01/27/17 at 18:29 MEDARDO CAM MD Jan 27, 2017 17:28
[2017-01-28] VITALS (24 sets, daily range): BP systolic 83–136; BP diastolic 43–91; PULSE 71–111; RESP 12–23
[2017-01-28] MEDS: ALBUTEROL/IPRATROPIUM (NEB) 3 ML AMP NEB SCH ×6 (01:15→21:00)
[2017-01-28] MEDS: VANCOMYCIN 1.25 GM in SOD CHLORIDE 0.9% 250 ML IVPB SCH ×2 (03:40→17:54)
[2017-01-28] MEDS: ACYCLOVIR 500 MG in SOD CHLORIDE 0.9% 100 ML IVPB SCH ×3 (05:37→21:48)
[2017-01-28 05:49] LABS: BASOPHILS % 0.5 % (0.0-2.0); EOSINOPHILS # 0.1 10^3/ul (0.0-0.5); EOSINOPHILS % 0.9 % (0.0-7.0); HEMATOCRIT 39.7 % (42.0-52.0); HEMOGLOBIN 13.4 g/dl (14.0-18.0); LYMPHOCYTES # 1.6 10^3/ul (0.8-2.9); LYMPHOCYTES % 18.5 % (15.0-51.0); MEAN CORPUSCULAR HEMOGLOBIN 29.5 pg (29.0-33.0); MEAN CORPUSCULAR HGB CONC 33.8 g/dl (32.0-37.0); MEAN CORPUSCULAR VOLUME 87.4 fl (82.0-101.0); MEAN PLATELET VOLUME 9.5 fl (7.4-10.4); MONOCYTE # 0.8 10^3/ul (0.3-0.9); MONOCYTES % 8.6 % (0.0-11.0); NEUTROPHILS % 71.2 % (39.0-77.0); PLATELET COUNT 265 10^3/UL (140-415); RED BLOOD COUNT 4.54 10^6/ul (4.70-6.10); RED CELL DISTRIBUTION WIDTH 13.2 % (11.5-14.5); WHITE BLOOD COUNT 8.8 10^3/ul (4.8-10.8)
[2017-01-28 06:03] LABS: CALCIUM 8.8 mg/dl (8.4-10.2); CREATININE 0.8 mg/dl (0.61-1.24); POTASSIUM 3.4 mmol/L (3.5-5.1)
[2017-01-28] MEDS: AMPICILLIN 2 GM/NS (PMX) 100 ML IVPB SCH ×4 (06:42→23:46)
[2017-01-28] MEDS: SOD CHLORIDE 0.9% 1,000 ML IV SCH (06:59)
--- NOTE | 2017-01-28 07:40 | CONS ---
Date/Time of Note Date/Time of Note DATE: 01/28/17 TIME: 07:36 Consult Date/Type/Reason Admit Date/Time Jan 26, 2017 at 13:58 Initial Consult Date 01/27/17 Type of Consultation: cardiology Ordering Provider: MONET FLORES [employer] Subjective Discussed with staff and rhythm was reviewed. Patient remained in sinus rhythm. Patient is less agitated today but moving a lot during MRI yesterday. he appears to be still confuse but less/ He denies any pain to me including any muscle pain any chest pain. Patient is sitting ICU for close neuro monitoring and neuro check q 1 hour. . OBJECTIVE: General: no acute distress HEENT: NC/AT. pupils are equal. round. NECK: NO JVD. no stridor. CV: RRR. systolic murmur; no gallop or rubs. PULM: no wheezing or rhonchi. GI: SOFT, NT, ND, no rebound or guarding Extremity: trace B/L LE edema. no clubbing. neuro: awake and alert, OX1. Psych: calm and pleasant rectal: deferred : normal derm: skin rash right hand ECHOCARDIOGRAM was personally reviewed: Conclusions 1. Normal left ventricular systolic function. Mild concentric left ventricular hypertrophy. Ejection fraction is visually estimated at 55 %. Tissue Doppler/Mitral Doppler indices are consistent with impaired relaxation (Stage I diastolic dysfunction). 2. The left atrium is normal in size. 3. Normal appearance and function of the mitral valve with trace physiologic regurgitation. 4. Aortic sclerosis without stenosis. Trileaflet aortic valve. Trace to mild aortic valve regurgitation. 5. Normal appearance of the tricuspid valve. Estimated peak PA systolic pressure 37 mmHg. There is trace tricuspid regurgitation. Objective Vital Signs Date Time Temp Pulse Resp B/P Pulse Ox O2 Delivery O2 Flow Rate FiO2 01/28/17 06:00 111 21 111/91 99 Room Air 01/28/17 05:46 21 01/28/17 04:00 98.2 01/27/17 09:56 1.0 Intake and Output 01/27/17 01/27/17 01/28/17 15:00 23:00 07:00 Intake Total 1050 ml 1150 ml 1249.999 ml Output Total 725 ml 1375 ml 725 ml Balance 325 ml -225 ml 524.999 ml Results/Medications Result Diagram: 01/28/17 0508 01/28/17 0507 Results 24 hrs Laboratory Tests Test 01/27/17 11:10 01/27/17 12:22 01/27/17 13:04 01/28/17 05:07 Blood Gas Specimen Source Blood arterial Arterial Blood Date Drawn 01/27/2017 11:30:18 AM Arterial Blood pH (Temp corrected) 7.436 Arterial Blood pCO2 (Temp correct) 32.9 L Arterial Blood pO2 (Temp corrected) 112.6 H Arterial Blood HCO3 21.6 L Arterial Blood Base Excess -1.8 Arterial Blood Oxygen Saturation 98.2 H Ramone Test ACCEPTAB Arterial Blood Gas Puncture Site Right Radial Arterial Blood Carboxyhemoglobin 0.3 Arterial Blood Methemoglobin 0.1 Blood Gas A-a O2 Differential 19.4 Oxyhemoglobin Percent 97.8 Total Hemoglobin 13.7 Blood Gas Temperature 37.0 Blood Gas Modality NASAL CANNULA FiO2 24.0 Blood Gas Notified Whom JLD Blood Gas Notified Time 01/27/2017 11:59:54 AM Sodium Level 141 145 H Potassium Level 3.4 L 3.4 L Chloride Level 105 107 Carbon Dioxide Level 26 26 Anion Gap 13 15 Blood Urea Nitrogen 4 L 4 L Creatinine 0.83 0.80 Glucose Level 97 90 Calcium Level 8.5 8.8 HIV (1&2) Antibody NEGATIVE Test 01/28/17 05:08 White Blood Count 8.8 Red Blood Count 4.54 L Hemoglobin 13.4 L Hematocrit 39.7 L Mean Corpuscular Volume 87.4 Mean Corpuscular Hemoglobin 29.5 Mean Corpuscular Hemoglobin Concent 33.8 Red Cell Distribution Width 13.2 Platelet Count 265 Mean Platelet Volume 9.5 Neutrophils % 71.2 Lymphocytes % 18.5 Monocytes % 8.6 Eosinophils % 0.9 Basophils % 0.5 Nucleated Red Blood Cells % 0.0 Neutrophils # (Manual) 6.2 Lymphocytes # 1.6 Monocytes # 0.8 Eosinophils # 0.1 Basophils # 0.0 Nucleated Red Blood Cells # 0.0 Medications Current Medications Sodium Chloride (NS) 1,000 ml @ 100 mls/hr Q10H IV Last administered on t 11:22; Admin Dose 100 MLS/HR; Start 01/26/17 at 10:59 Ondansetron HCl (Zofran Inj) 4 mg Q6H PRN IV NAUSEA AND/OR VOMITING; Start at 11:00 Nitroglycerin (Nitroglycerin (Sl Tab) 0.4 Mg) 1 tab Q5M PRN SL CHEST PAIN; Start 01/26/17 at 11:00 Lorazepam (Ativan) 1 mg Q2H PRN IV ANXIETY Last administered on 01/27/17 15:35 ; Admin Dose 1 MG; Start 01/26/17 at 11:00 Famotidine (Pepcid Iv) 20 mg Q12 IV Last administered on 01/27/17 21:04; Admin Dose 20 MG; Start 01/26/17 at 12:00 Quetiapine Fumarate (Seroquel) 25 mg DAILY PRN PO AGITATION Last administered on 01/27/17 13:54; Admin Dose 25 MG; Start 01/26/17 at 12:30 Atorvastatin Calcium 40 mg 40 mg HS PO ; Start 01/26/17 at 21:00; Status Future Hold Acyclovir 500 mg/ Sodium Chloride 100 ml @ 100 mls/hr Q8 IVPB Last administered on 01/28/17 05:37; Admin Dose 100 MLS/HR; Start 01/27/17 at 14:00 Fluconazole 100 ml @ 100 mls/hr Q24H IVPB Last administered on 01/27/17 13:41 ; Admin Dose 100 MLS/HR; Start 01/27/17 at 13:00 Ceftriaxone Sodium 50 ml @ 100 mls/hr Q24H IVPB Last administered on 13:42; Admin Dose 100 MLS/HR; Start 01/27/17 at 13:00 Ampicillin 100 ml @ 100 mls/hr Q6 IVPB Last administered on 01/28/17 06:42; Admin Dose 100 MLS/HR; Start 01/27/17 at 13:00 Vancomycin HCl/ Sodium Chloride (Vancocin/NS) 250 ml @ 83.333 mls/ hr Q12H IVPB Last administered on 01/28/17 03:40; Admin Dose 83.333 MLS/HR; Start at 04:00 Assessment/Plan Chief Complaint/Hosp Course 1. Abnormal troponin: Doubt acute NC. Mostly secondary to troponin leak due to rhabdomyolysis. CK is markedly elevated but CK MB is not c/w false + troponin. 2. Altered level of consciousness/ encepphalopathy: defer to the primary internal medicine team. Follow-up with neurology recommendation. LP is still pending 3, history of hypertension currently stable off of meds. will monitor. 4. History of dyslipidemia on statin at home. hold off on statin until ck level is lower. 5. Electrolytes abnormalities and hyponatremia: Is being managed by the renal team. 6. Possible rhabdomyolysis. Electrolytes are being managed and adjusted as per renal recommendation. Follow neurological improvement of neurology recommendation. currently being monitored with neuro check q 1 hour in ICU. MRI is DONE but LP is still pending We will continue to follow along with you. More than 31 minutes critical care time was spent in management and treatment of this critically ill patient excluding procedures. Thank you for this referral. Problems: DAY AMBRIZ MD Jan 28, 2017 07:40
--- NOTE | 2017-01-28 08:58 | PN ---
Date/Time of Note Date/Time of Note DATE: 01/28/17 TIME: 08:58 Assessment/Plan VTE Prophylaxis VTE Prophylaxis Intervention: ambulation, SCD's Lines/Catheters IV [facility] Peripheral IV Urinary Cath still in place: No Assessment/Plan Chief Complaint/Hosp Course 1. Acute encephalopathy with severe metabolic abnormalities (hyponatremia, lactic acidosis, low bicarb, elevated CK) in a patient with no known alcohol or other [id number]: Rule out Hypoxic-ischemic encephalopathy vs Septic/infectious encephalopathy vs toxic-metabolic encephalopathy of other etiologies. Workup negative for stroke. -Pending diagnostic lumbar puncture to rule out possible [employer] infection/West Nile virus -Neurology on board and will follow recommendation. -Seroquel as needed for agitation -Continue neurochecks 2 hrs 2. Hyponatremia of unknown etiology-Rule out SIADH vs others. Resolved -Nephrology is on board will follow recs 3. Sepsis of unknown etiology. Leukocytosis and lactic acidosis resolved. -Follow-up with LP fluid studies and pancultures -Continue with broad-spectrum antibiotics and follow-up with ID recommendation. 4. Elevated troponin,possibly false positive with underlying Rhabdo. Less likely NE per cards. -Cardiology on board and will follow recommendation. 5.Severe anion-gap Metabolic acidosis. Resolved 6.Rhabdomyolysis. Improving. -Continue IV fluids 7. Hypokalemia, mild. -Defer nephrology 8. Hypertension.stable -Resume home medications 9. Dyslipidemia. Stable lipid panel -Hold statin due to rhabdo 10.Right hand bug bite vs others? -ID to evaluate DVT prophylaxis: Ambulation/SCDs PUD prophylaxis: Pepcid Plan: Follow-up with LP fluid studies.Continue diet. PT eval and trx. DC ca. May transfer to [facility] if neuro status remains stable over next 24hrs. 60 minutes critical care time spent. Case discussed with Dr. Bloom. Problems: Subjective 24 Hr Interval Summary Free Text/Dictation Today patient is more alert and orientedx 4. Tolerated diet. Exam/Review of Systems Vital Signs Vitals Vital Signs Date Time Temp Pulse Resp B/P Pulse Ox O2 Delivery O2 Flow Rate FiO2 01/28/17 06:00 111 21 111/91 99 Room Air 01/28/17 05:46 21 01/28/17 04:00 98.2 01/27/17 09:56 1.0 Intake and Output 01/27/17 01/27/17 01/28/17 15:00 23:00 07:00 Intake Total 1050 ml 1150 ml 1249.999 ml Output Total 725 ml 1375 ml 725 ml Balance 325 ml -225 ml 524.999 ml Exam General: Well developed male, cooperative HEENT: Normocephalic, Atraumatic, No laceration or hematoma; Eyes: PEERL, Conjunctiva clear, Anicteric sclera Neck: Supple without any lymphadenopathy, nontender, no JVD, no carotid bruits, trachea midline, no thyromegaly Cardiac: S1, S2 auscultated, regular rhythm and rate, no mumurs or gallop Pulmonary: Normal respiratory effort. Chest clear to auscultation bilaterally, no adventitious breath sounds GI: Abdomen normal to inspection. Soft, non tender, non- distended, no masses, no rebound tenderness or guarding. Bowel sounds active on all four quadrants Genitourinary: Deferred Extremities: no cyanosis, clubbing, or edema. Pulses [2+] bilaterally. Full ROM on all four extremities. No focal weakness appreciated. Neurologic: Alert,orientedx4. Speech clear-but slightly slow response. Mildly confused. Skin: Right hand with erythema/mild swelling with 2 sharp entry ports of bite. Clean,dry, and intact. No ecchymosis, no rashes, or lesions Results Result Diagram: 01/28/17 0508 01/28/17 0507 Results 24 hrs Laboratory Tests Test 01/27/17 11:10 01/27/17 12:22 01/27/17 13:04 01/28/17 05:07 Blood Gas Specimen Source Blood arterial Arterial Blood Date Drawn 01/27/2017 11:30:18 AM Arterial Blood pH (Temp corrected) 7.436 Arterial Blood pCO2 (Temp correct) 32.9 L Arterial Blood pO2 (Temp corrected) 112.6 H Arterial Blood HCO3 21.6 L Arterial Blood Base Excess -1.8 Arterial Blood Oxygen Saturation 98.2 H Ramone Test ACCEPTAB Arterial Blood Gas Puncture Site Right Radial Arterial Blood Carboxyhemoglobin 0.3 Arterial Blood Methemoglobin 0.1 Blood Gas A-a O2 Differential 19.4 Oxyhemoglobin Percent 97.8 Total Hemoglobin 13.7 Blood Gas Temperature 37.0 Blood Gas Modality NASAL CANNULA FiO2 24.0 Blood Gas Notified Whom JLD Blood Gas Notified Time 01/27/2017 11:59:54 AM Sodium Level 141 145 H Potassium Level 3.4 L 3.4 L Chloride Level 105 107 Carbon Dioxide Level 26 26 Anion Gap 13 15 Blood Urea Nitrogen 4 L 4 L Creatinine 0.83 0.80 Glucose Level 97 90 Calcium Level 8.5 8.8 HIV (1&2) Antibody NEGATIVE Test 01/28/17 05:08 White Blood Count 8.8 Red Blood Count 4.54 L Hemoglobin 13.4 L Hematocrit 39.7 L Mean Corpuscular Volume 87.4 Mean Corpuscular Hemoglobin 29.5 Mean Corpuscular Hemoglobin Concent 33.8 Red Cell Distribution Width 13.2 Platelet Count 265 Mean Platelet Volume 9.5 Neutrophils % 71.2 Lymphocytes % 18.5 Monocytes % 8.6 Eosinophils % 0.9 Basophils % 0.5 Nucleated Red Blood Cells % 0.0 Neutrophils # (Manual) 6.2 Lymphocytes # 1.6 Monocytes # 0.8 Eosinophils # 0.1 Basophils # 0.0 Nucleated Red Blood Cells # 0.0 Medications Medications Current Medications Sodium Chloride (NS) 1,000 ml @ 100 mls/hr Q10H IV Last administered on 11:22; Admin Dose 100 MLS/HR; Start 01/26/17 at 10:59 Ondansetron HCl (Zofran Inj) 4 mg Q6H PRN IV NAUSEA AND/OR VOMITING; Start at 11:00 Nitroglycerin (Nitroglycerin (Sl Tab) 0.4 Mg) 1 tab Q5M PRN SL CHEST PAIN; Start 01/26/17 at 11:00 Lorazepam (Ativan) 1 mg Q2H PRN IV ANXIETY Last administered on 01/27/17 15:35 ; Admin Dose 1 MG; Start 01/26/17 at 11:00 Famotidine (Pepcid Iv) 20 mg Q12 IV Last administered on 01/27/17 21:04; Admin Dose 20 MG; Start 01/26/17 at 12:00 Quetiapine Fumarate (Seroquel) 25 mg DAILY PRN PO AGITATION Last administered on 01/27/17 13:54; Admin Dose 25 MG; Start 01/26/17 at 12:30 Atorvastatin Calcium 40 mg 40 mg HS PO ; Start 01/26/17 at 21:00; Status Future Hold Acyclovir 500 mg/ Sodium Chloride 100 ml @ 100 mls/hr Q8 IVPB Last administered on 01/28/17 05:37; Admin Dose 100 MLS/HR; Start 01/27/17 at 14:00 Fluconazole 100 ml @ 100 mls/hr Q24H IVPB Last administered on 01/27/17 13:41 ; Admin Dose 100 MLS/HR; Start 01/27/17 at 13:00 Ceftriaxone Sodium 50 ml @ 100 mls/hr Q24H IVPB Last administered on 13:42; Admin Dose 100 MLS/HR; Start 01/27/17 at 13:00 Ampicillin 100 ml @ 100 mls/hr Q6 IVPB Last administered on 01/28/17 06:42; Admin Dose 100 MLS/HR; Start 01/27/17 at 13:00 Vancomycin HCl/ Sodium Chloride (Vancocin/NS) 250 ml @ 83.333 mls/ hr Q12H IVPB Last administered on 01/28/17 03:40; Admin Dose 83.333 MLS/HR; Start at 04:00 MONET FLORES NP Jan 28, 2017 08:58
[2017-01-28] MEDS: FAMOTIDINE 20 MG INJ IV SCH (09:16)
--- NOTE | 2017-01-28 10:51 | CONS ---
Date/Time of Note Date/Time of Note DATE: 01/28/17 TIME: 10:49 Consult Date/Type/Reason Admit Date/Time Jan 26, 2017 at 13:58 Initial Consult Date 01/27/17 Type of Consultation: Pulmonary Ordering Provider: MONET FLORES NP Subjective Patient is awake alert and oriented this morning has periods of mild confusion but overall improved. Objective Vital Signs Date Time Temp Pulse Resp B/P Pulse Ox O2 Delivery O2 Flow Rate FiO2 01/28/17 10:00 94 19 117/76 98 Room Air 01/28/17 08:00 98.0 01/28/17 05:46 21 01/27/17 09:56 1.0 Intake and Output 01/27/17 01/27/17 01/28/17 15:00 23:00 07:00 Intake Total 1050 ml 1150 ml 1350.999 ml Output Total 725 ml 1375 ml 875 ml Balance 325 ml -225 ml 475.999 ml Exam PHYSICAL EXAMINATION GENERAL: Well-nourished well-developed gentleman comfortable at rest no acute distress. VITAL SIGNS: see below. HEENT: Pupils equal, round, and reactive to light. CARDIAC: S1, S2, 1/6 systolic ejection murmur CHEST: Diminished air entry bilaterally. ABDOMEN: Mildly distended. Bowel sounds present no guarding or rebound EXTREMITIES: No cyanosis, clubbing edema +1 NEUROLOGIC: Generalized weakness but no focal deficits. Skin: What appears to be an insect bite on right hand. Results/Medications Result Diagram: 01/28/17 0508 01/28/17 0507 Results 24 hrs Laboratory Tests Test 01/27/17 11:10 01/27/17 12:22 01/27/17 13:04 01/28/17 05:07 Blood Gas Specimen Source Blood arterial Arterial Blood Date Drawn 01/27/2017 11:30:18 AM Arterial Blood pH (Temp corrected) 7.436 Arterial Blood pCO2 (Temp correct) 32.9 L Arterial Blood pO2 (Temp corrected) 112.6 H Arterial Blood HCO3 21.6 L Arterial Blood Base Excess -1.8 Arterial Blood Oxygen Saturation 98.2 H Ramone Test ACCEPTAB Arterial Blood Gas Puncture Site Right Radial Arterial Blood Carboxyhemoglobin 0.3 Arterial Blood Methemoglobin 0.1 Blood Gas A-a O2 Differential 19.4 Oxyhemoglobin Percent 97.8 Total Hemoglobin 13.7 Blood Gas Temperature 37.0 Blood Gas Modality NASAL CANNULA FiO2 24.0 Blood Gas Notified Whom JLD Blood Gas Notified Time 01/27/2017 11:59:54 AM Sodium Level 141 145 H Potassium Level 3.4 L 3.4 L Chloride Level 105 107 Carbon Dioxide Level 26 26 Anion Gap 13 15 Blood Urea Nitrogen 4 L 4 L Creatinine 0.83 0.80 Glucose Level 97 90 Calcium Level 8.5 8.8 HIV (1&2) Antibody NEGATIVE Test 01/28/17 05:08 White Blood Count 8.8 Red Blood Count 4.54 L Hemoglobin 13.4 L Hematocrit 39.7 L Mean Corpuscular Volume 87.4 Mean Corpuscular Hemoglobin 29.5 Mean Corpuscular Hemoglobin Concent 33.8 Red Cell Distribution Width 13.2 Platelet Count 265 Mean Platelet Volume 9.5 Neutrophils % 71.2 Lymphocytes % 18.5 Monocytes % 8.6 Eosinophils % 0.9 Basophils % 0.5 Nucleated Red Blood Cells % 0.0 Neutrophils # (Manual) 6.2 Lymphocytes # 1.6 Monocytes # 0.8 Eosinophils # 0.1 Basophils # 0.0 Nucleated Red Blood Cells # 0.0 Medications Current Medications Sodium Chloride (NS) 1,000 ml @ 100 mls/hr Q10H IV Last administered on 11:22; Admin Dose 100 MLS/HR; Start 01/26/17 at 10:59 Ondansetron HCl (Zofran Inj) 4 mg Q6H PRN IV NAUSEA AND/OR VOMITING; Start at 11:00 Nitroglycerin (Nitroglycerin (Sl Tab) 0.4 Mg) 1 tab Q5M PRN SL CHEST PAIN; Start 01/26/17 at 11:00 Lorazepam (Ativan) 1 mg Q2H PRN IV ANXIETY Last administered on 01/27/17 15:35 ; Admin Dose 1 MG; Start 01/26/17 at 11:00 Famotidine (Pepcid Iv) 20 mg Q12 IV Last administered on 01/28/17 09:16; Admin Dose 20 MG; Start 01/26/17 at 12:00 Quetiapine Fumarate (Seroquel) 25 mg DAILY PRN PO AGITATION Last administered on 01/27/17 13:54; Admin Dose 25 MG; Start 01/26/17 at 12:30 Atorvastatin Calcium 40 mg 40 mg HS PO ; Start 01/26/17 at 21:00; Status Future Hold Acyclovir 500 mg/ Sodium Chloride 100 ml @ 100 mls/hr Q8 IVPB Last administered on 01/28/17 05:37; Admin Dose 100 MLS/HR; Start 01/27/17 at 14:00 Fluconazole 100 ml @ 100 mls/hr Q24H IVPB Last administered on 01/27/17 13:41 ; Admin Dose 100 MLS/HR; Start 01/27/17 at 13:00 Ampicillin 100 ml @ 100 mls/hr Q6 IVPB Last administered on 01/28/17 06:42; Admin Dose 100 MLS/HR; Start 01/27/17 at 13:00 Vancomycin HCl 1.25 gm/Sodium Chloride 250 ml @ 83.333 mls/ hr Q12H IVPB Last administered on 01/28/17 03:40; Admin Dose 83.333 MLS/HR; Start 01/28/17 at 04: 00 Ceftriaxone Sodium (Rocephin) 50 ml @ 100 mls/hr Q12 IVPB ; Start 01/28/17 at 11:30 Assessment/Plan Chief Complaint/Hosp Course Assessment/Plan 1. Acute encephalopathy of unclear etiology. Concern for possible meningitis/ encephalitis. MRI unremarkable pending lumbar puncture 2. Mild rhabdomyolysis. Continues hydration #7 improved. 3. Leukocytosis. Resolved. Continue antibiotics pending cultures 4. Aspiration precautions and speech therapy evaluation. Advance diet as tolerated consider removal of Oliver catheter. Disposition Transfer to telemetry Problems: JONNATHAN DUNBAR MD, [facility] Jan 28, 2017 10:51
--- NOTE | 2017-01-28 11:17 | CONS ---
Date/Time of Note Date/Time of Note DATE: 01/28/17 TIME: 11:15 Assessment/Plan Assessment/Plan Chief Complaint/Hosp Course 51 year old male with HTN, HLD was hiking yesterday and returned home found by his roommate unresponsive- he was brought in by Ambulance with altered mental status. He is noted with severe metabolic abnormalities: hyponatremia, elevated lactic acid and leukocytosis with shift. He remains encephalopathic- Currently his BP also dropped to systolic 80s Renal has been consulted for acute hyponatremia with Na 122, HCO3 16. Renal has been consulted for severe hyponatremia, Severe metabolic acidosis. Problems: Additional Assessment/Plan ASSESSMENT: 1. acute metabolic encephalopathy vs Infectious encephalopathy 2. severe hyponatremia 3. severe metabolic acidosis 4. Hypokalemia 5. Sepsis with Hypotension 6. acute rhabdomyolysis Plan: more alert today, Na trending up d/c IVF NS, s/p Bicarbonate drip for one day , now off Plan for Lumbar puncture today IV abx for possible concern about sepsis MRi brain limited but negative for acute findings, Neurology has been following patient Consultation Date/Type/Reason Admit Date/Time Jan 26, 2017 at 13:58 Initial Consult Date 01/26/17 Type of Consultation: NEPHROLOGY Reason for Consultation severe hyponatremia, metabolic encephalopathy Referring Provider: MONET FLORES NP 24 HR Interval Summary Free Text/Dictation pt more alert today, started on diet, tolerating it, On IVF NS, Exam/Review of Systems Vital Signs Vitals Vital Signs Date Time Temp Pulse Resp B/P Pulse Ox O2 Delivery O2 Flow Rate FiO2 01/28/17 10:00 94 19 117/76 98 Room Air 01/28/17 08:00 98.0 01/28/17 05:46 21 01/27/17 09:56 1.0 Intake and Output 01/27/17 01/27/17 01/28/17 15:00 23:00 07:00 Intake Total 1050 ml 1150 ml 1350.999 ml Output Total 725 ml 1375 ml 875 ml Balance 325 ml -225 ml 475.999 ml Exam Constitutional: other (Altered mental status ) Head: normocephalic ENMT: nl external ears & nose Neck: supple Respiratory: crackles/rales, diminished breath sounds, intercostal retraction Cardiovascular: nl pulses, regular rate and rhythm Gastrointestinal: non-tender, soft Extremities: normal pulses, + ca catheter Results Result Diagram: 01/28/17 0508 01/28/17 0507 Results 24 hrs Laboratory Tests Test 01/27/17 12:22 01/27/17 13:04 01/28/17 05:07 01/28/17 05:08 Sodium Level 141 145 H Potassium Level 3.4 L 3.4 L Chloride Level 105 107 Carbon Dioxide Level 26 26 Anion Gap 13 15 Blood Urea Nitrogen 4 L 4 L Creatinine 0.83 0.80 Glucose Level 97 90 Calcium Level 8.5 8.8 HIV (1&2) Antibody NEGATIVE White Blood Count 8.8 Red Blood Count 4.54 L Hemoglobin 13.4 L Hematocrit 39.7 L Mean Corpuscular Volume 87.4 Mean Corpuscular Hemoglobin 29.5 Mean Corpuscular Hemoglobin Concent 33.8 Red Cell Distribution Width 13.2 Platelet Count 265 Mean Platelet Volume 9.5 Neutrophils % 71.2 Lymphocytes % 18.5 Monocytes % 8.6 Eosinophils % 0.9 Basophils % 0.5 Nucleated Red Blood Cells % 0.0 Neutrophils # (Manual) 6.2 Lymphocytes # 1.6 Monocytes # 0.8 Eosinophils # 0.1 Basophils # 0.0 Nucleated Red Blood Cells # 0.0 Medications Medications Current Medications Ondansetron HCl (Zofran Inj) 4 mg Q6H PRN IV NAUSEA AND/OR VOMITING; Start at 11:00 Nitroglycerin (Nitroglycerin (Sl Tab) 0.4 Mg) 1 tab Q5M PRN SL CHEST PAIN; Start 01/26/17 at 11:00 Lorazepam (Ativan) 1 mg Q2H PRN IV ANXIETY Last administered on 01/27/17 15:35 ; Admin Dose 1 MG; Start 01/26/17 at 11:00 Famotidine (Pepcid Iv) 20 mg Q12 IV Last administered on 01/28/17 09:16; Admin Dose 20 MG; Start 01/26/17 at 12:00 Quetiapine Fumarate (Seroquel) 25 mg DAILY PRN PO AGITATION Last administered on 01/27/17 13:54; Admin Dose 25 MG; Start 01/26/17 at 12:30 Atorvastatin Calcium 40 mg 40 mg HS PO ; Start 01/26/17 at 21:00; Status Future Hold Acyclovir 500 mg/ Sodium Chloride 100 ml @ 100 mls/hr Q8 IVPB Last administered on 01/28/17 05:37; Admin Dose 100 MLS/HR; Start 01/27/17 at 14:00 Fluconazole 100 ml @ 100 mls/hr Q24H IVPB Last administered on 01/27/17 13:41 ; Admin Dose 100 MLS/HR; Start 01/27/17 at 13:00 Ampicillin 100 ml @ 100 mls/hr Q6 IVPB Last administered on 01/28/17 06:42; Admin Dose 100 MLS/HR; Start 01/27/17 at 13:00 Vancomycin HCl 1.25 gm/Sodium Chloride 250 ml @ 83.333 mls/ hr Q12H IVPB Last administered on 01/28/17 03:40; Admin Dose 83.333 MLS/HR; Start 01/28/17 at 04: 00 Ceftriaxone Sodium 50 ml @ 100 mls/hr Q12 IVPB ; Start 01/28/17 at 11:30 Potassium Chloride/Sodium Chloride (KCl/NS) 110 ml @ 55 mls/hr ONCE ONCE IVPB ; Start 01/28/17 at 11:30; Stop 01/28/17 at 13:29; Status MEDARDO LAMB MD Jan 28, 2017 11:17
[2017-01-28] MEDS ORDERED: POTASSIUM CHLORIDE 20 MEQ in SOD CHLORIDE 0.9% 100 ML IVPB ONE (11:30)
[2017-01-28] MEDS ORDERED: CEFTRIAXONE 2 GM/50 ML (PMX) 50 ML IVPB SCH (11:30)
[2017-01-28] MEDS ORDERED: POTASSIUM CHLORIDE 50 ML IVPB ONE (11:30)
[2017-01-28] MEDS: CEFTRIAXONE 2 GM/NS 50 ML IVPB SCH ×2 (12:52→21:12)
[2017-01-28] MEDS: FLUCONAZOLE 200 MG/NS (PMX) 100 ML IVPB SCH (12:55)
[2017-01-28] MEDS ORDERED: LIDOCAINE 1% (MDV) 20 ML INJ ONE (15:43)
--- NOTE | 2017-01-28 18:08 | CONS ---
Date/Time of Note Date/Time of Note DATE: 01/28/17 TIME: 18:06 Consult Date/Type/Reason Admit Date/Time Jan 26, 2017 at 13:58 Initial Consult Date 01/27/17 Type of Consultation: Neurology Reason for Consultation encephalopathy Ordering Provider: MONET FLORES NP Subjective improved mental status slightly agitated still not at baseline pending LP MRI unrevealing Objective Vital Signs Date Time Temp Pulse Resp B/P Pulse Ox O2 Delivery O2 Flow Rate FiO2 01/28/17 17:02 76 01/28/17 13:23 18 98 21 01/28/17 10:00 117/76 Room Air 01/28/17 08:00 98.0 01/27/17 09:56 1.0 Intake and Output 01/27/17 01/27/17 01/28/17 15:00 23:00 07:00 Intake Total 1050 ml 1150 ml 1350.999 ml Output Total 725 ml 1375 ml 875 ml Balance 325 ml -225 ml 475.999 ml Exam awake alert aware of his name not of location irritable follows commands CN: ii-xii intact Motor intact movements of all extremities rash seen on right hand Results/Medications Result Diagram: 01/28/17 0508 01/28/17 0507 Results 24 hrs Laboratory Tests Test 01/28/17 05:07 01/28/17 05:08 Sodium Level 145 H Potassium Level 3.4 L Chloride Level 107 Carbon Dioxide Level 26 Anion Gap 15 Blood Urea Nitrogen 4 L Creatinine 0.80 Glucose Level 90 Calcium Level 8.8 White Blood Count 8.8 Red Blood Count 4.54 L Hemoglobin 13.4 L Hematocrit 39.7 L Mean Corpuscular Volume 87.4 Mean Corpuscular Hemoglobin 29.5 Mean Corpuscular Hemoglobin Concent 33.8 Red Cell Distribution Width 13.2 Platelet Count 265 Mean Platelet Volume 9.5 Neutrophils % 71.2 Lymphocytes % 18.5 Monocytes % 8.6 Eosinophils % 0.9 Basophils % 0.5 Nucleated Red Blood Cells % 0.0 Neutrophils # (Manual) 6.2 Lymphocytes # 1.6 Monocytes # 0.8 Eosinophils # 0.1 Basophils # 0.0 Nucleated Red Blood Cells # 0.0 Medications Current Medications Ondansetron HCl (Zofran Inj) 4 mg Q6H PRN IV NAUSEA AND/OR VOMITING; Start at 11:00 Nitroglycerin (Nitroglycerin (Sl Tab) 0.4 Mg) 1 tab Q5M PRN SL CHEST PAIN; Start 01/26/17 at 11:00 Lorazepam (Ativan) 1 mg Q2H PRN IV ANXIETY Last administered on 01/27/17 15:35 ; Admin Dose 1 MG; Start 01/26/17 at 11:00 Quetiapine Fumarate (Seroquel) 25 mg DAILY PRN PO AGITATION Last administered on 01/27/17 13:54; Admin Dose 25 MG; Start 01/26/17 at 12:30 Atorvastatin Calcium 40 mg 40 mg HS PO ; Start 01/26/17 at 21:00; Status Future Hold Acyclovir 500 mg/ Sodium Chloride 100 ml @ 100 mls/hr Q8 IVPB Last administered on 01/28/17 14:30; Admin Dose 100 MLS/HR; Start 01/27/17 at 14:00 Fluconazole 100 ml @ 100 mls/hr Q24H IVPB Last administered on 01/28/17 12:55 ; Admin Dose 100 MLS/HR; Start 01/27/17 at 13:00 Ampicillin 100 ml @ 100 mls/hr Q6 IVPB Last administered on 01/28/17 12:00; Admin Dose 100 MLS/HR; Start 01/27/17 at 13:00 Vancomycin HCl 1.25 gm/Sodium Chloride 250 ml @ 83.333 mls/ hr Q12H IVPB Last administered on 01/28/17 17:54; Admin Dose 83.333 MLS/HR; Start 01/28/17 at 04: 00 Ceftriaxone Sodium (Rocephin) 50 ml @ 100 mls/hr Q12 IVPB Last administered on 01/28/17 12:52; Admin Dose 100 MLS/HR; Start 01/28/17 at 11:30 Miscellaneous Information (*Rx Drug Level Order Reminder*) VANCOMYCIN TROUGH AT 0300 ONCE ONCE XX ; Start 01/29/17 at 03:00; Stop 01/29/17 at 03:01 Famotidine (Pepcid) 20 mg Q12 PO ; Start 01/28/17 at 21:00 Assessment/Plan Chief Complaint/Hosp Course 51 year old male with HTN, HLD was hiking yesterday and returned home found by his roommate unresponsive with severe metabolic abnormalities: hyponatremia, elevated lactic acid and leukocytosis with shift. Mental status improving gradually. Recommendations: -avoid ativan due to inability to monitor his neurologic status, if needed for agitation recommended low dose Seroquel 25 mg daily prn -rule out TOBACCO CUTTER infection given elevated WBC and AMS- recommend LP may be done under IR, Cell Count, Protein, Glucose, Cultures, Fungal, Bacterial cultures, Viral encephalitis panel include West Nile Virus, HSV I,II PCR, full infectious work up -MRI Brain without contrast unrevealing -Routine EEG completed- to be reviewed -nephrology following, for hyponatremia -for now felicia Bailey no clear history of seizure -c/w ICU monitoring Problems: JOAN MATIAS MD Jan 28, 2017 18:08
[2017-01-28 18:09] LABS: CSF MN% 66.6 %; CSF PMN% 33.4 %
[2017-01-28 18:13] LABS: CSF COLOR COLORLESS; CSF#TUBES REC'D 4
[2017-01-28 18:14] LABS: CSF#TUBE COUNT TUBE#1
[2017-01-28 18:37] LABS: GLUCOSE,CSF 65 mg/dl (50-80)
[2017-01-28 19:16] LABS: CSF COLOR COLORLESS
[2017-01-28 19:17] LABS: CSF#TUBE COUNT TUBE#4; CSF#TUBES REC'D 4
[2017-01-28] MEDS: FAMOTIDINE 20 MG TAB PO SCH (21:12)
[2017-01-29] VITALS (18 sets, daily range): BP systolic 97–135; BP diastolic 55–109; PULSE 61–97; RESP 13–20
[2017-01-29] MEDS: ALBUTEROL/IPRATROPIUM (NEB) 3 ML AMP NEB SCH ×3 (01:00→08:38)
[2017-01-29 04:09] LABS: BASOPHILS % 0.5 % (0.0-2.0); EOSINOPHILS # 0.2 10^3/ul (0.0-0.5); EOSINOPHILS % 2.5 % (0.0-7.0); HEMATOCRIT 39.5 % (42.0-52.0); HEMOGLOBIN 13.6 g/dl (14.0-18.0); LYMPHOCYTES # 1.9 10^3/ul (0.8-2.9); LYMPHOCYTES % 25.4 % (15.0-51.0); MEAN CORPUSCULAR HEMOGLOBIN 30.2 pg (29.0-33.0); MEAN CORPUSCULAR HGB CONC 34.4 g/dl (32.0-37.0); MEAN CORPUSCULAR VOLUME 87.8 fl (82.0-101.0); MEAN PLATELET VOLUME 9.7 fl (7.4-10.4); MONOCYTE # 0.6 10^3/ul (0.3-0.9); MONOCYTES % 8.3 % (0.0-11.0); PLATELET COUNT 273 10^3/UL (140-415); RED CELL DISTRIBUTION WIDTH 13.2 % (11.5-14.5); WHITE BLOOD COUNT 7.5 10^3/ul (4.8-10.8)
[2017-01-29 04:36] LABS: CALCIUM 9.1 mg/dl (8.4-10.2); CREATININE 0.8 mg/dl (0.61-1.24); POTASSIUM 3.5 mmol/L (3.5-5.1)
[2017-01-29] MEDS: VANCOMYCIN 1.25 GM in SOD CHLORIDE 0.9% 250 ML IVPB SCH (05:22)
[2017-01-29] MEDS: ACYCLOVIR 500 MG in SOD CHLORIDE 0.9% 100 ML IVPB SCH ×3 (06:03→21:50)
[2017-01-29] MEDS: AMPICILLIN 2 GM/NS (PMX) 100 ML IVPB SCH (07:19)
--- NOTE | 2017-01-29 07:34 | CONS ---
Date/Time of Note Date/Time of Note DATE: 01/29/17 TIME: 07:33 Consult Date/Type/Reason Admit Date/Time Jan 26, 2017 at 13:58 Initial Consult Date 01/27/17 Type of Consultation: cardiology Ordering Provider: MONET FLORES V. [employer] SU[employer] Subjective Discussed with staff and rhythm was reviewed. Patient remained in sinus rhythm. Patient is less agitated today He denies any pain to me including any muscle pain any chest pain. OBJECTIVE: General: no acute distress HEENT: NC/AT. pupils are equal. round. NECK: NO JVD. no stridor. CV: RRR. systolic murmur; no gallop or rubs. PULM: no wheezing or rhonchi. GI: SOFT, NT, ND, no rebound or guarding Extremity: trace B/L LE edema. no clubbing. neuro: awake and alert, OX3 Psych: calm and pleasant rectal: deferred : normal derm: skin rash right hand ECHOCARDIOGRAM was personally reviewed: Conclusions 1. Normal left ventricular systolic function. Mild concentric left ventricular hypertrophy. Ejection fraction is visually estimated at 55 %. Tissue Doppler/Mitral Doppler indices are consistent with impaired relaxation (Stage I diastolic dysfunction). 2. The left atrium is normal in size. 3. Normal appearance and function of the mitral valve with trace physiologic regurgitation. 4. Aortic sclerosis without stenosis. Trileaflet aortic valve. Trace to mild aortic valve regurgitation. 5. Normal appearance of the tricuspid valve. Estimated peak PA systolic pressure 37 mmHg. There is trace tricuspid regurgitation. Objective Vital Signs Date Time Temp Pulse Resp B/P Pulse Ox O2 Delivery O2 Flow Rate FiO2 01/29/17 05:00 61 16 97/65 98 Room Air 01/29/17 04:00 98.0 01/28/17 13:23 21 01/27/17 09:56 1.0 Intake and Output 01/28/17 01/28/17 01/29/17 15:00 23:00 07:00 Intake Total 990 ml 923.332 ml 183.333 ml Output Total 990 ml 790 ml 350 ml Balance 0 ml 133.332 ml -166.667 ml Results/Medications Result Diagram: 01/29/17 0323 01/29/17 0323 Results 24 hrs Laboratory Tests Test 01/28/17 16:33 01/29/17 03:23 CSF Tubes Submitted 4 CSF Volume 9.0 CSF Appearance CLEAR CSF Color COLORLESS CSF WBC 2 CSF RBC 0 CSF Cell Count Tube # TUBE#4 CSF Mononuclear Cells % (Auto) 100.0 CSF Polynuclear WBCs (%) 0.0 CSF Glucose 65 CSF Total Protein 96 H White Blood Count 7.5 Red Blood Count 4.50 L Hemoglobin 13.6 L Hematocrit 39.5 L Mean Corpuscular Volume 87.8 Mean Corpuscular Hemoglobin 30.2 Mean Corpuscular Hemoglobin Concent 34.4 Red Cell Distribution Width 13.2 Platelet Count 273 Mean Platelet Volume 9.7 Neutrophils % 63.0 Lymphocytes % 25.4 Monocytes % 8.3 Eosinophils % 2.5 Basophils % 0.5 Nucleated Red Blood Cells % 0.0 Neutrophils # (Manual) 4.7 Lymphocytes # 1.9 Monocytes # 0.6 Eosinophils # 0.2 Basophils # 0.0 Nucleated Red Blood Cells # 0.0 Sodium Level 141 Potassium Level 3.5 Chloride Level 106 Carbon Dioxide Level 27 Anion Gap 12 Blood Urea Nitrogen 10 Creatinine 0.80 Glucose Level 107 Calcium Level 9.1 Vancomycin Level Trough 10.8 Medications Current Medications Ondansetron HCl (Zofran Inj) 4 mg Q6H PRN IV NAUSEA AND/OR VOMITING; Start at 11:00 Nitroglycerin (Nitroglycerin (Sl Tab) 0.4 Mg) 1 tab Q5M PRN SL CHEST PAIN; Start 01/26/17 at 11:00 Lorazepam (Ativan) 1 mg Q2H PRN IV ANXIETY Last administered on 01/27/17 15:35 ; Admin Dose 1 MG; Start 01/26/17 at 11:00 Quetiapine Fumarate (Seroquel) 25 mg DAILY PRN PO AGITATION Last administered on 01/27/17 13:54; Admin Dose 25 MG; Start 01/26/17 at 12:30 Atorvastatin Calcium 40 mg 40 mg HS PO ; Start 01/26/17 at 21:00; Status Future Hold Acyclovir 500 mg/ Sodium Chloride 100 ml @ 100 mls/hr Q8 IVPB Last administered on 01/29/17 06:03; Admin Dose 100 MLS/HR; Start 01/27/17 at 14:00 Fluconazole 100 ml @ 100 mls/hr Q24H IVPB Last administered on 01/28/17 12:55 ; Admin Dose 100 MLS/HR; Start 01/27/17 at 13:00 Ampicillin 100 ml @ 100 mls/hr Q6 IVPB Last administered on 01/29/17 07:19; Admin Dose 100 MLS/HR; Start 01/27/17 at 13:00 Vancomycin HCl 1.25 gm/Sodium Chloride 250 ml @ 83.333 mls/ hr Q12H IVPB Last administered on 01/29/17 05:22; Admin Dose 83.333 MLS/HR; Start 01/28/17 at 04: 00 Ceftriaxone Sodium (Rocephin) 50 ml @ 100 mls/hr Q12 IVPB Last administered on 01/28/17 21:12; Admin Dose 100 MLS/HR; Start 01/28/17 at 11:30 Famotidine (Pepcid) 20 mg Q12 PO Last administered on 01/28/17 21:12; Admin Dose 20 MG; Start 01/28/17 at 21:00 Assessment/Plan Chief Complaint/Hosp Course 1. Abnormal troponin: Doubt acute AK. Mostly secondary to troponin leak due to rhabdomyolysis. CK is markedly elevated but CK MB is not c/w false + troponin. 2. Altered level of consciousness/ encepphalopathy: defer to the primary internal medicine team. Follow-up with neurology recommendation. LP result is still pending 3, history of hypertension currently stable off of meds. will monitor. 4. History of dyslipidemia on statin at home. hold off on statin until ck level is lower. 5. Electrolytes abnormalities and hyponatremia: Is being managed by the renal team. 6. Possible rhabdomyolysis. Thank you for this referral. Problems: DAY AMBRIZ MD Jan 29, 2017 07:34
[2017-01-29] MEDS: CEFTRIAXONE 2 GM/NS 50 ML IVPB SCH ×2 (08:44→21:16)
[2017-01-29] MEDS: FAMOTIDINE 20 MG TAB PO SCH ×2 (08:45→21:17)
--- NOTE | 2017-01-29 09:07 | PN ---
Date/Time of Note Date/Time of Note DATE: 01/29/17 TIME: 09:07 Assessment/Plan VTE Prophylaxis VTE Prophylaxis Intervention: ambulation, SCD's Lines/Catheters IV [facility] Peripheral IV Urinary Cath still in place: No Assessment/Plan Chief Complaint/Hosp Course 1. Acute encephalopathy with severe metabolic abnormalities (hyponatremia, lactic acidosis, low bicarb, elevated CK). Rule out Septic/infectious encephalopathy vs toxic-metabolic encephalopathy. Resolved. Patient is back to baseline neuro status. -Follow-up with final LP fluid culture. CSF viral panel pending 2. Hyponatremia of unknown etiology-Rule out SIADH vs others. Resolved -Nephrology is on board will follow recs 3. Status post sepsis of unknown etiology. -Follow-up with LP fluid cultures. So far all cultures have been negative. -Continue with broad-spectrum antibiotics and follow-up with ID recommendation. 4. Elevated troponin, most likely secondary to rhabdomyolysis. -Cardiology eval appreciated and ACS ruled out. 5.Severe anion-gap Metabolic acidosis. Resolved 6.Rhabdomyolysis. Resolving. -Continue IV fluids. Repeat CK in a.m. 7. Hypokalemia, mild. Resolved 8. Hypertension.stable -Continue home medications 9. Dyslipidemia. Stable lipid panel -Hold statin due to rhabdo. Will reassess in a.m. 10.Right hand bug bite vs others? Symptoms resolve. -We will also obtain a Lyme disease panel. DVT prophylaxis: Ambulation/SCDs PUD prophylaxis: Pepcid Plan: Transfer to telemetry. Continue with physical therapy. Continue diet. Case discussed with Dr. Bloom. Problems: Subjective 24 Hr Interval Summary Free Text/Dictation Patient remains alert oriented 4 over the past 24 hours. He did not require any further restraint intervention or sitter. Appropriate affect. Exam/Review of Systems Vital Signs Vitals Vital Signs Date Time Temp Pulse Resp B/P Pulse Ox O2 Delivery O2 Flow Rate FiO2 01/29/17 08:38 76 18 97 21 01/29/17 08:12 98.5 124/80 01/29/17 08:00 Room Air 01/27/17 09:56 1.0 Intake and Output 01/28/17 01/28/17 01/29/17 15:00 23:00 07:00 Intake Total 990 ml 923.332 ml 183.333 ml Output Total 990 ml 790 ml 350 ml Balance 0 ml 133.332 ml -166.667 ml Exam General: Well developed male, cooperative HEENT: Normocephalic, Atraumatic, No laceration or hematoma; Eyes: PEERL, Conjunctiva clear, Anicteric sclera Neck: Supple without any lymphadenopathy, nontender, no JVD, no carotid bruits, trachea midline, no thyromegaly Cardiac: S1, S2 auscultated, regular rhythm and rate, no mumurs or gallop Pulmonary: Normal respiratory effort. Chest clear to auscultation bilaterally, no adventitious breath sounds GI: Abdomen normal to inspection. Soft, non tender, non- distended, no masses, no rebound tenderness or guarding. Bowel sounds active on all four quadrants Genitourinary: Deferred Extremities: no cyanosis, clubbing, or edema. Pulses [2+] bilaterally. Full ROM on all four extremities. No focal weakness appreciated. Neurologic: Alert,orientedx4. Appropriate affect. Skin: Right hand with erythema/mild swelling with 2 sharp entry ports of bite- resolved. Clean,dry, and intact. No ecchymosis, no rashes, or lesions Results Result Diagram: 01/29/17 0323 01/29/17 0323 Results 24 hrs Laboratory Tests Test 01/28/17 16:33 01/29/17 03:23 CSF Tubes Submitted 4 CSF Volume 9.0 CSF Appearance CLEAR CSF Color COLORLESS CSF WBC 2 CSF RBC 0 CSF Cell Count Tube # TUBE#4 CSF Mononuclear Cells % (Auto) 100.0 CSF Polynuclear WBCs (%) 0.0 CSF Glucose 65 CSF Total Protein 96 H White Blood Count 7.5 Red Blood Count 4.50 L Hemoglobin 13.6 L Hematocrit 39.5 L Mean Corpuscular Volume 87.8 Mean Corpuscular Hemoglobin 30.2 Mean Corpuscular Hemoglobin Concent 34.4 Red Cell Distribution Width 13.2 Platelet Count 273 Mean Platelet Volume 9.7 Neutrophils % 63.0 Lymphocytes % 25.4 Monocytes % 8.3 Eosinophils % 2.5 Basophils % 0.5 Nucleated Red Blood Cells % 0.0 Neutrophils # (Manual) 4.7 Lymphocytes # 1.9 Monocytes # 0.6 Eosinophils # 0.2 Basophils # 0.0 Nucleated Red Blood Cells # 0.0 Sodium Level 141 Potassium Level 3.5 Chloride Level 106 Carbon Dioxide Level 27 Anion Gap 12 Blood Urea Nitrogen 10 Creatinine 0.80 Glucose Level 107 Calcium Level 9.1 Vancomycin Level Trough 10.8 Medications Medications Current Medications Ondansetron HCl (Zofran Inj) 4 mg Q6H PRN IV NAUSEA AND/OR VOMITING; Start at 11:00 Nitroglycerin (Nitroglycerin (Sl Tab) 0.4 Mg) 1 tab Q5M PRN SL CHEST PAIN; Start 01/26/17 at 11:00 Lorazepam (Ativan) 1 mg Q2H PRN IV ANXIETY Last administered on 01/27/17 15:35 ; Admin Dose 1 MG; Start 01/26/17 at 11:00 Quetiapine Fumarate (Seroquel) 25 mg DAILY PRN PO AGITATION Last administered on 01/27/17 13:54; Admin Dose 25 MG; Start 01/26/17 at 12:30 Atorvastatin Calcium 40 mg 40 mg HS PO ; Start 01/26/17 at 21:00; Status Future Hold Acyclovir 500 mg/ Sodium Chloride 100 ml @ 100 mls/hr Q8 IVPB Last administered on 01/29/17 06:03; Admin Dose 100 MLS/HR; Start 01/27/17 at 14:00 Fluconazole 100 ml @ 100 mls/hr Q24H IVPB Last administered on 01/28/17 12:55 ; Admin Dose 100 MLS/HR; Start 01/27/17 at 13:00 Ampicillin 100 ml @ 100 mls/hr Q6 IVPB Last administered on 01/29/17 07:19; Admin Dose 100 MLS/HR; Start 01/27/17 at 13:00 Vancomycin HCl 1.25 gm/Sodium Chloride 250 ml @ 83.333 mls/ hr Q12H IVPB Last administered on 01/29/17 05:22; Admin Dose 83.333 MLS/HR; Start 01/28/17 at 04: 00 Ceftriaxone Sodium (Rocephin) 50 ml @ 100 mls/hr Q12 IVPB Last administered on 01/29/17 08:44; Admin Dose 100 MLS/HR; Start 01/28/17 at 11:30 Famotidine (Pepcid) 20 mg Q12 PO Last administered on 01/29/17 08:45; Admin Dose 20 MG; Start 01/28/17 at 21:00 MONET FLORES NP Jan 29, 2017 09:07
--- NOTE | 2017-01-29 09:51 | PN ---
DATE: SUBJECTIVE: The patient is doing better today. He is awake, slightly confused, but overall knows where he is and is able to recall the events prior to admission to the hospital. He is in no distress. OBJECTIVE DATA: Temperature 98, pulse 92, respirations 20, blood pressure 112/73, saturation 98 on room air. LABORATORY AND DIAGNOSTIC DATA: WBC 8.8, H and H 13.4 and 39.7, platelets 265, no shift, no bounce. BUN 4, creatinine 0.80. MICROBIOLOGY: All cultures have been negative. ANTIMICROBIALS: Vancomycin, Rocephin, acyclovir, fluconazole. PHYSICAL EXAMINATION: GENERAL: Well-developed, middle-aged man, who is alert, in no distress. HEENT: Head atraumatic, normocephalic. Sclerae anicteric. Buccal mucosa pink. NECK: Supple. CHEST: Rise symmetrical. Breath sounds clear. HEART: S1, S2. ABDOMEN: Soft, bowel sounds present. EXTREMITIES: Without cyanosis or edema. ASSESSMENT: 1. Resolving encephalopathy. 2. Possible meningitis. Rule out West Nile virus encephalitis. So far brain MRI and CT of the brain revealed no gross acute intracranial pathology. 3. Status post systemic inflammatory response syndrome on admission. 4. Hypertension. PLAN: The patient is markedly improved. His HIV serology came back negative. Pending lumbar puncture. He is being followed by Neurology. We will continue him on current regimen for now. Dictated By: Sally Gonzales NP /analia/ /Document#: [id number]
--- NOTE | 2017-01-29 09:52 | RADRPT ---
PROCEDURE: Fluoroscopic guided lumbar puncture. CLINICAL INDICATION: Altered mental status TECHNIQUE: Prior to the procedure, informed consent was obtained. Risks including bleeding and in fection were explained to the patient. The patient understood and was willing to proceed. A proced ural pause was performed. The patient's name, date of , and procedure to be performed were christopher ified. Using local anesthetic, sterile technique, and fluoroscopic guidance, a 22-gauge spinal needle was a dvanced into the thecal sac at the L3-4 level. 12 mL of clear cerebrospinal fluid was aspirated an d sent for laboratory analysis. The needle was removed. A dressing was applied. The patient lon ated the procedure well. A total of 0.2 minutes of fluoroscopy time was used. 4 fluoroscopic images were saved. COMPARISON: None. FINDINGS: Images demonstrate the needle at the L3-L4 level in the thecal sac. IMPRESSION: 1. Satisfactory fluoroscopic guided lumbar puncture. RPTAT: [facility] .Sandeep Ng MD, MD Date Time Electronically viewed and signed by .Sandeep Ng MD, on 01/28/2017 17:07 .K/
--- NOTE | 2017-01-29 11:08 | CONS ---
Date/Time of Note Date/Time of Note DATE: 01/29/17 TIME: 11:05 Consult Date/Type/Reason Admit Date/Time Jan 26, 2017 at 13:58 Initial Consult Date 01/27/17 Type of Consultation: Neurology Reason for Consultation encephalopathy Ordering Provider: MONET FLORES NP Subjective significantly improved mental status CSF protein elevated 96, viral panel pending Objective Vital Signs Date Time Temp Pulse Resp B/P Pulse Ox O2 Delivery O2 Flow Rate FiO2 01/29/17 10:00 84 18 124/79 100 Room Air 01/29/17 08:38 21 01/29/17 08:12 98.5 01/27/17 09:56 1.0 Intake and Output 01/28/17 01/28/17 01/29/17 15:00 23:00 07:00 Intake Total 990 ml 923.332 ml 183.333 ml Output Total 990 ml 790 ml 350 ml Balance 0 ml 133.332 ml -166.667 ml Exam awake alert oriented x3 no aphasia CN: II-XII intact Motor 5/5 Reflexes 2+ toes down Coordination no ataxia Sensory intact Results/Medications Result Diagram: 01/29/17 0323 01/29/17 0323 Results 24 hrs Laboratory Tests Test 01/28/17 16:33 01/29/17 03:23 CSF Tubes Submitted 4 CSF Volume 9.0 CSF Appearance CLEAR CSF Color COLORLESS CSF WBC 2 CSF RBC 0 CSF Cell Count Tube # TUBE#4 CSF Mononuclear Cells % (Auto) 100.0 CSF Polynuclear WBCs (%) 0.0 CSF Glucose 65 CSF Total Protein 96 H White Blood Count 7.5 Red Blood Count 4.50 L Hemoglobin 13.6 L Hematocrit 39.5 L Mean Corpuscular Volume 87.8 Mean Corpuscular Hemoglobin 30.2 Mean Corpuscular Hemoglobin Concent 34.4 Red Cell Distribution Width 13.2 Platelet Count 273 Mean Platelet Volume 9.7 Neutrophils % 63.0 Lymphocytes % 25.4 Monocytes % 8.3 Eosinophils % 2.5 Basophils % 0.5 Nucleated Red Blood Cells % 0.0 Neutrophils # (Manual) 4.7 Lymphocytes # 1.9 Monocytes # 0.6 Eosinophils # 0.2 Basophils # 0.0 Nucleated Red Blood Cells # 0.0 Sodium Level 141 Potassium Level 3.5 Chloride Level 106 Carbon Dioxide Level 27 Anion Gap 12 Blood Urea Nitrogen 10 Creatinine 0.80 Glucose Level 107 Calcium Level 9.1 Vancomycin Level Trough 10.8 Medications Current Medications Ondansetron HCl (Zofran Inj) 4 mg Q6H PRN IV NAUSEA AND/OR VOMITING; Start at 11:00 Nitroglycerin (Nitroglycerin (Sl Tab) 0.4 Mg) 1 tab Q5M PRN SL CHEST PAIN; Start 01/26/17 at 11:00 Lorazepam (Ativan) 1 mg Q2H PRN IV ANXIETY Last administered on 01/27/17 15:35 ; Admin Dose 1 MG; Start 01/26/17 at 11:00 Quetiapine Fumarate (Seroquel) 25 mg DAILY PRN PO AGITATION Last administered on 01/27/17 13:54; Admin Dose 25 MG; Start 01/26/17 at 12:30 Atorvastatin Calcium 40 mg 40 mg HS PO ; Start 01/26/17 at 21:00; Status Future Hold Acyclovir 500 mg/ Sodium Chloride 100 ml @ 100 mls/hr Q8 IVPB Last administered on 01/29/17 06:03; Admin Dose 100 MLS/HR; Start 01/27/17 at 14:00 Fluconazole 100 ml @ 100 mls/hr Q24H IVPB Last administered on 01/28/17 12:55 ; Admin Dose 100 MLS/HR; Start 01/27/17 at 13:00 Ampicillin 100 ml @ 100 mls/hr Q6 IVPB Last administered on 01/29/17 07:19; Admin Dose 100 MLS/HR; Start 01/27/17 at 13:00 Vancomycin HCl 1.25 gm/Sodium Chloride 250 ml @ 83.333 mls/ hr Q12H IVPB Last administered on 01/29/17 05:22; Admin Dose 83.333 MLS/HR; Start 01/28/17 at 04: 00 Ceftriaxone Sodium (Rocephin) 50 ml @ 100 mls/hr Q12 IVPB Last administered on 01/29/17 08:44; Admin Dose 100 MLS/HR; Start 01/28/17 at 11:30 Famotidine (Pepcid) 20 mg Q12 PO Last administered on 01/29/17 08:45; Admin Dose 20 MG; Start 01/28/17 at 21:00 Assessment/Plan Chief Complaint/Hosp Course 51 year old male with HTN, HLD was hiking yesterday and returned home found by his roommate unresponsive with severe metabolic abnormalities: hyponatremia, elevated lactic acid and leukocytosis with shift. Mental status and hyponatremia significantly improved. CSF studies: CSF WBc2, RBC 0, Glucose 65, Protein 96 Lymphocytes pending Viral panel pending Recommendations: -avoid ativan due to inability to monitor his neurologic status, if needed for agitation recommended low dose Seroquel 25 mg daily prn -rule out [employer] infection follow up Cultures, Fungal, Bacterial cultures, Viral encephalitis panel include West Nile Virus, HSV I,II PCR, full infectious work up -MRI Brain without contrast unrevealing -Routine EEG completed- to be reviewed -nephrology following, for hyponatremia -for now felicia Bailey no clear history of seizure -transfer out of ICU further studies pending from CSF will request Dr. Adams to follow tomorrow Problems: JOAN MATIAS MD Jan 29, 2017 11:07
--- NOTE | 2017-01-29 11:12 | CONS ---
Date/Time of Note Date/Time of Note DATE: 01/29/17 TIME: 11:10 Consult Date/Type/Reason Admit Date/Time Jan 26, 2017 at 13:58 Initial Consult Date 01/27/17 Type of Consultation: Pulmonary Ordering Provider: MONET FLORES NP Subjective Mild confusion but overall improved. Objective Vital Signs Date Time Temp Pulse Resp B/P Pulse Ox O2 Delivery O2 Flow Rate FiO2 01/29/17 10:00 84 18 124/79 100 Room Air 01/29/17 08:38 21 01/29/17 08:12 98.5 01/27/17 09:56 1.0 Intake and Output 01/28/17 01/28/17 01/29/17 15:00 23:00 07:00 Intake Total 990 ml 923.332 ml 183.333 ml Output Total 990 ml 790 ml 350 ml Balance 0 ml 133.332 ml -166.667 ml Exam PHYSICAL EXAMINATION GENERAL: Well-nourished well-developed gentleman comfortable at rest no acute distress. VITAL SIGNS: see below. HEENT: Pupils equal, round, and reactive to light. CARDIAC: S1, S2, 1/6 systolic ejection murmur CHEST: Diminished air entry bilaterally. ABDOMEN: Mildly distended. Bowel sounds present no guarding or rebound EXTREMITIES: No cyanosis, clubbing edema +1 NEUROLOGIC: Generalized weakness but no focal deficits. Skin: What appears to be an insect bite on right hand. Results/Medications Result Diagram: 01/29/17 0323 01/29/17 0323 Results 24 hrs Laboratory Tests Test 01/28/17 16:33 01/29/17 03:23 CSF Tubes Submitted 4 CSF Volume 9.0 CSF Appearance CLEAR CSF Color COLORLESS CSF WBC 2 CSF RBC 0 CSF Cell Count Tube # TUBE#4 CSF Mononuclear Cells % (Auto) 100.0 CSF Polynuclear WBCs (%) 0.0 CSF Glucose 65 CSF Total Protein 96 H White Blood Count 7.5 Red Blood Count 4.50 L Hemoglobin 13.6 L Hematocrit 39.5 L Mean Corpuscular Volume 87.8 Mean Corpuscular Hemoglobin 30.2 Mean Corpuscular Hemoglobin Concent 34.4 Red Cell Distribution Width 13.2 Platelet Count 273 Mean Platelet Volume 9.7 Neutrophils % 63.0 Lymphocytes % 25.4 Monocytes % 8.3 Eosinophils % 2.5 Basophils % 0.5 Nucleated Red Blood Cells % 0.0 Neutrophils # (Manual) 4.7 Lymphocytes # 1.9 Monocytes # 0.6 Eosinophils # 0.2 Basophils # 0.0 Nucleated Red Blood Cells # 0.0 Sodium Level 141 Potassium Level 3.5 Chloride Level 106 Carbon Dioxide Level 27 Anion Gap 12 Blood Urea Nitrogen 10 Creatinine 0.80 Glucose Level 107 Calcium Level 9.1 Vancomycin Level Trough 10.8 Medications Current Medications Ondansetron HCl (Zofran Inj) 4 mg Q6H PRN IV NAUSEA AND/OR VOMITING; Start at 11:00 Nitroglycerin (Nitroglycerin (Sl Tab) 0.4 Mg) 1 tab Q5M PRN SL CHEST PAIN; Start 01/26/17 at 11:00 Lorazepam (Ativan) 1 mg Q2H PRN IV ANXIETY Last administered on 01/27/17 15:35 ; Admin Dose 1 MG; Start 01/26/17 at 11:00 Quetiapine Fumarate (Seroquel) 25 mg DAILY PRN PO AGITATION Last administered on 01/27/17 13:54; Admin Dose 25 MG; Start 01/26/17 at 12:30 Atorvastatin Calcium 40 mg 40 mg HS PO ; Start 01/26/17 at 21:00; Status Future Hold Acyclovir 500 mg/ Sodium Chloride 100 ml @ 100 mls/hr Q8 IVPB Last administered on 01/29/17 06:03; Admin Dose 100 MLS/HR; Start 01/27/17 at 14:00 Fluconazole 100 ml @ 100 mls/hr Q24H IVPB Last administered on 01/28/17 12:55 ; Admin Dose 100 MLS/HR; Start 01/27/17 at 13:00 Ampicillin 100 ml @ 100 mls/hr Q6 IVPB Last administered on 01/29/17 07:19; Admin Dose 100 MLS/HR; Start 01/27/17 at 13:00 Vancomycin HCl 1.25 gm/Sodium Chloride 250 ml @ 83.333 mls/ hr Q12H IVPB Last administered on 01/29/17 05:22; Admin Dose 83.333 MLS/HR; Start 01/28/17 at 04: 00 Ceftriaxone Sodium (Rocephin) 50 ml @ 100 mls/hr Q12 IVPB Last administered on 01/29/17 08:44; Admin Dose 100 MLS/HR; Start 01/28/17 at 11:30 Famotidine (Pepcid) 20 mg Q12 PO Last administered on 01/29/17 08:45; Admin Dose 20 MG; Start 01/28/17 at 21:00 Assessment/Plan Chief Complaint/Hosp Course Assessment/Plan 1. Acute encephalopathy of unclear etiology. Concern for possible meningitis/ encephalitis. MRI unremarkable. CSF viral panel pending 2. Mild rhabdomyolysis. Continues hydration #7 improved. 3. Leukocytosis. Resolved. Continue antibiotics pending cultures 4. Aspiration precautions and speech therapy evaluation. Advance diet as tolerated 5. Physical therapy evaluation Disposition Continue telemetry monitoring Problems: JONNATHAN DUNBAR MD, [facility] Jan 29, 2017 11:11
--- NOTE | 2017-01-29 12:52 | PN ---
DATE: 01/29/2017 SUBJECTIVE DATA: No events overnight. The patient is alert, ambulating in the hallway with PT, feels good, denies pain, discomfort. OBJECTIVE DATA: VITAL SIGNS: Temperature 98.5, pulse 84, respirations 18, blood pressure 124/80, saturation 100 on room air. MICROBIOLOGY: CSF culture preliminary negative. Cytology revealed white blood cell count of 2, clear colorless fluid with glucose 65, protein 96. PHYSICAL EXAMINATION: GENERAL: Well-developed, middle-aged white man, who is alert, in no distress. HEENT: Head atraumatic, normocephalic. Sclerae anicteric. Buccal mucosa dry. NECK: Supple. LUNGS: Chest rise symmetrical. Breath sounds clear. HEART: S1, S2. ABDOMEN: Soft, bowel sounds present. EXTREMITIES: Without cyanosis, edema. ASSESSMENT: 1. Resolving acute encephalopathy, etiology unclear, no radiographic evidence of acute intracranial pathology. Cerebrospinal fluid cultures negative so far. Patient is being followed by Neurology. 2. Status post systemic inflammatory response syndrome on admission. The patient continues to improve, pending final cerebrospinal fluid cultures, pending viral panel. We are going to keep him on Rocephin and acyclovir for now. We will discontinue other antibiotics. Follow cerebrospinal fluid, West Nile virus. Follow Neurology recommendations. Above was discussed with Dr. Chinedu Kinsey. Dictated By: Sally Gonzales NP /analia/yolis /Document#: [id number] AIDA
--- NOTE | 2017-01-29 15:51 | CONS ---
Date/Time of Note Date/Time of Note DATE: 01/29/17 TIME: 15:46 Assessment/Plan Assessment/Plan Chief Complaint/Hosp Course 51 year old male with HTN, HLD was hiking yesterday and returned home found by his roommate unresponsive- he was brought in by Ambulance with altered mental status. He is noted with severe metabolic abnormalities: hyponatremia, elevated lactic acid and leukocytosis with shift. He remains encephalopathic- Currently his BP also dropped to systolic 80s Renal has been consulted for acute hyponatremia with Na 122, HCO3 16. Renal has been consulted for severe hyponatremia, Severe metabolic acidosis. Problems: Additional Assessment/Plan 1. acute metabolic encephalopathy vs Infectious encephalopathy 2. severe hyponatremia- Resolved 3. severe metabolic acidosis- resolved, S/p Bicarbonate drip x 24 hr 4. Hypokalemia- resolved 5. Sepsis with Hypotension On IVabx, ID following, Unclear etiology at this point 6. acute rhabdomyolysis Resolved Plan: on IV abx ceftriaxone and acyclovir, monitor Cr while pt is on Acyclovir since it can cause cystal induced KAYLA. IV abx for possible concern about sepsis s/p lumbar pucnture, no WBC on CSF fluid, ID following MRi brain limited but negative for acute findings, Neurology has been following patient I will order lyme serology will follow up Consultation Date/Type/Reason Admit Date/Time Jan 26, 2017 at 13:58 Initial Consult Date 01/26/17 Type of Consultation: NEPHROLOGY Referring Provider: MONET FLORES NP 24 HR Interval Summary Free Text/Dictation Trasnsferred to telemetry floor, BP stable, Cr and electrolytes stable, not back to baseline yet Exam/Review of Systems Vital Signs Vitals Vital Signs Date Time Temp Pulse Resp B/P Pulse Ox O2 Delivery O2 Flow Rate FiO2 01/29/17 15:24 98.1 77 16 126/79 98 01/29/17 10:00 Room Air 01/29/17 08:38 21 01/27/17 09:56 1.0 Intake and Output 01/28/17 01/28/17 01/29/17 15:00 23:00 07:00 Intake Total 990 ml 923.332 ml 183.333 ml Output Total 990 ml 790 ml 350 ml Balance 0 ml 133.332 ml -166.667 ml Exam Constitutional: awake, but not oriented Head: normocephalic ENMT: nl external ears & nose Neck: supple Respiratory: crackles/rales, diminished breath sounds, intercostal retraction Cardiovascular: nl pulses, regular rate and rhythm Gastrointestinal: non-tender, soft Extremities: normal pulses, + ca catheter Results Result Diagram: 01/29/17 0323 01/29/17 0323 Results 24 hrs Laboratory Tests Test 01/28/17 16:33 01/29/17 03:23 CSF Tubes Submitted 4 CSF Volume 9.0 CSF Appearance CLEAR CSF Color COLORLESS CSF WBC 2 CSF RBC 0 CSF Cell Count Tube # TUBE#4 CSF Mononuclear Cells % (Auto) 100.0 CSF Polynuclear WBCs (%) 0.0 CSF Glucose 65 CSF Total Protein 96 H White Blood Count 7.5 Red Blood Count 4.50 L Hemoglobin 13.6 L Hematocrit 39.5 L Mean Corpuscular Volume 87.8 Mean Corpuscular Hemoglobin 30.2 Mean Corpuscular Hemoglobin Concent 34.4 Red Cell Distribution Width 13.2 Platelet Count 273 Mean Platelet Volume 9.7 Neutrophils % 63.0 Lymphocytes % 25.4 Monocytes % 8.3 Eosinophils % 2.5 Basophils % 0.5 Nucleated Red Blood Cells % 0.0 Neutrophils # (Manual) 4.7 Lymphocytes # 1.9 Monocytes # 0.6 Eosinophils # 0.2 Basophils # 0.0 Nucleated Red Blood Cells # 0.0 Sodium Level 141 Potassium Level 3.5 Chloride Level 106 Carbon Dioxide Level 27 Anion Gap 12 Blood Urea Nitrogen 10 Creatinine 0.80 Glucose Level 107 Calcium Level 9.1 Vancomycin Level Trough 10.8 Medications Medications Current Medications Ondansetron HCl (Zofran Inj) 4 mg Q6H PRN IV NAUSEA AND/OR VOMITING; Start at 11:00 Nitroglycerin (Nitroglycerin (Sl Tab) 0.4 Mg) 1 tab Q5M PRN SL CHEST PAIN; Start 01/26/17 at 11:00 Lorazepam (Ativan) 1 mg Q2H PRN IV ANXIETY Last administered on 01/27/17 15:35 ; Admin Dose 1 MG; Start 01/26/17 at 11:00 Quetiapine Fumarate (Seroquel) 25 mg DAILY PRN PO AGITATION Last administered on 01/27/17 13:54; Admin Dose 25 MG; Start 01/26/17 at 12:30 Atorvastatin Calcium 40 mg 40 mg HS PO ; Start 01/26/17 at 21:00; Status Future Hold Acyclovir 500 mg/ Sodium Chloride 100 ml @ 100 mls/hr Q8 IVPB Last administered on 01/29/17 14:08; Admin Dose 100 MLS/HR; Start 01/27/17 at 14:00 Ceftriaxone Sodium (Rocephin) 50 ml @ 100 mls/hr Q12 IVPB Last administered on 01/29/17 08:44; Admin Dose 100 MLS/HR; Start 01/28/17 at 11:30 Famotidine (Pepcid) 20 mg Q12 PO Last administered on 01/29/17 08:45; Admin Dose 20 MG; Start 01/28/17 at 21:00 MEDARDO CAM MD Jan 29, 2017 15:51
[2017-01-29] MEDS ORDERED: VANCOMYCIN 1.5 GM in SOD CHLORIDE 0.9% 250 ML IVPB SCH (17:00)
[2017-01-30] VITALS (11 sets, daily range): BP systolic 98–131; BP diastolic 57–81; PULSE 63–96; RESP 16–21
[2017-01-30] MEDS: ACYCLOVIR 500 MG in SOD CHLORIDE 0.9% 100 ML IVPB SCH ×2 (06:00→14:51)
[2017-01-30] MEDS: FAMOTIDINE 20 MG TAB PO SCH ×2 (10:08→21:02)
[2017-01-30] MEDS: CEFTRIAXONE 2 GM/NS 50 ML IVPB SCH (10:08)
--- NOTE | 2017-01-30 10:47 | PN ---
Date/Time of Note Date/Time of Note DATE: 01/30/17 TIME: 10:47 Assessment/Plan VTE Prophylaxis VTE Prophylaxis Intervention: ambulation, SCD's Lines/Catheters IV [facility]ter [facility]from [facility] Peripheral IV Urinary Cath still in place: No Assessment/Plan Chief Complaint/Hosp Course 1. Acute encephalopathy with severe metabolic abnormalities (hyponatremia, lactic acidosis, low bicarb, elevated CK). Most likely toxic-metabolic encephalopathy versus infectious encephalopathy. Resolved. Patient is back to baseline neuro status. -Follow-up with final LP fluid culture. 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 2. Hyponatremia of unknown etiology-Rule out SIADH vs others. Resolved -Nephrology is on board will follow recs 3. Status post sepsis of unknown etiology. -Follow-up with LP fluid cultures. So far all cultures have been negative. -Continue with broad-spectrum antibiotics and follow-up with ID recommendation. 4. Elevated troponin, most likely secondary to rhabdomyolysis. -Cardiology eval appreciated and ACS ruled out. 5.Severe anion-gap Metabolic acidosis. Resolved 6.Rhabdomyolysis. Resolving. -Continue IV fluids. Repeat CK in a.m. 7. Hypokalemia, mild. Resolved 8. Hypertension.stable -Continue home medications 9. Dyslipidemia. Stable lipid panel -Hold statin for now due to rhabdo. DVT prophylaxis: Ambulation/SCDs PUD prophylaxis: Pepcid Plan:Continue with physical therapy. Continue diet. Follow-up final cultures and recommendations from nephrology and ID standpoint. Discharge planning once cleared from consultants. Case discussed with Dr. Bloom. Problems: Subjective 24 Hr Interval Summary Free Text/Dictation Patient remains alert and oriented. No changes in neuro status over the past 48 hours. Exam/Review of Systems Vital Signs Vitals Vital Signs Date Time Temp Pulse Resp B/P Pulse Ox O2 Delivery O2 Flow Rate FiO2 01/30/17 08:35 86 01/30/17 07:44 97.9 16 131/78 99 01/29/17 10:00 Room Air 01/29/17 08:38 21 01/27/17 09:56 1.0 Intake and Output 01/29/17 01/29/17 01/30/17 15:00 23:00 07:00 Intake Total 520 ml 520 ml 850 ml Output Total 300 ml 600 ml Balance 220 ml -80 ml 850 ml Exam General: Well developed male, cooperative HEENT: Normocephalic, Atraumatic, No laceration or hematoma; Eyes: PEERL, Conjunctiva clear, Anicteric sclera Neck: Supple without any lymphadenopathy, nontender, no JVD, no carotid bruits, trachea midline, no thyromegaly Cardiac: S1, S2 auscultated, regular rhythm and rate, no mumurs or gallop Pulmonary: Normal respiratory effort. Chest clear to auscultation bilaterally, no adventitious breath sounds GI: Abdomen normal to inspection. Soft, non tender, non- distended, no masses, no rebound tenderness or guarding. Bowel sounds active on all four quadrants Genitourinary: Deferred Extremities: no cyanosis, clubbing, or edema. Pulses [2+] bilaterally. Full ROM on all four extremities. No focal weakness appreciated. Neurologic: Alert,orientedx4. Appropriate affect. Skin: Right hand with erythema/mild swelling with 2 sharp entry ports of bite- resolved. Clean,dry, and intact. No ecchymosis, no rashes, or lesions Results Result Diagram: 01/29/17 0323 01/29/17 0323 Medications Medications Current Medications Ondansetron HCl (Zofran Inj) 4 mg Q6H PRN IV NAUSEA AND/OR VOMITING; Start at 11:00 Nitroglycerin (Nitroglycerin (Sl Tab) 0.4 Mg) 1 tab Q5M PRN SL CHEST PAIN; Start 01/26/17 at 11:00 Lorazepam (Ativan) 1 mg Q2H PRN IV ANXIETY Last administered on 01/27/17 15:35 ; Admin Dose 1 MG; Start 01/26/17 at 11:00 Quetiapine Fumarate (Seroquel) 25 mg DAILY PRN PO AGITATION Last administered on 01/27/17 13:54; Admin Dose 25 MG; Start 01/26/17 at 12:30 Atorvastatin Calcium 40 mg 40 mg HS PO ; Start 01/26/17 at 21:00; Status Future Hold Acyclovir 500 mg/ Sodium Chloride 100 ml @ 100 mls/hr Q8 IVPB Last administered on 01/30/17 06:00; Admin Dose 100 MLS/HR; Start 01/27/17 at 14:00 Ceftriaxone Sodium (Rocephin) 50 ml @ 100 mls/hr Q12 IVPB Last administered on 01/30/17 10:08; Admin Dose 100 MLS/HR; Start 01/28/17 at 11:30 Famotidine (Pepcid) 20 mg Q12 PO Last administered on 01/30/17 10:08; Admin Dose 20 MG; Start 01/28/17 at 21:00 MONET FLORES NP Jan 30, 2017 10:47
--- NOTE | 2017-01-30 12:00 | CONS ---
Date/Time of Note Date/Time of Note DATE: 01/30/17 TIME: 11:59 Assessment/Plan Assessment/Plan Chief Complaint/Hosp Course 51 year old male with HTN, HLD was hiking yesterday and returned home found by his roommate unresponsive- he was brought in by Ambulance with altered mental status. He is noted with severe metabolic abnormalities: hyponatremia, elevated lactic acid and leukocytosis with shift. He remains encephalopathic- Currently his BP also dropped to systolic 80s Renal has been consulted for acute hyponatremia with Na 122, HCO3 16. Renal has been consulted for severe hyponatremia, Severe metabolic acidosis. Problems: Additional Assessment/Plan 1. acute metabolic encephalopathy vs Infectious encephalopathy 2. severe hyponatremia- Resolved 3. severe metabolic acidosis- resolved, S/p Bicarbonate drip x 24 hr 4. Hypokalemia- resolved 5. Sepsis with Hypotension On IVabx, ID following, Unclear etiology at this point 6. acute rhabdomyolysis Resolved Plan: on IV abx ceftriaxone and acyclovir, monitor Cr while pt is on Acyclovir since it can cause cystal induced KAYLA. s/p lumbar pucnture, no WBC on CSF fluid, ID following MRi brain limited but negative for acute findings, Neurology has been following patient currently Cr and electrolytes stable will follow up Consultation Date/Type/Reason Admit Date/Time Jan 26, 2017 at 13:58 Initial Consult Date 01/26/17 Type of Consultation: NEPHROLOGY Referring Provider: MONET FLORES NP 24 HR Interval Summary Free Text/Dictation doing ok, more alert, communicative, Cr normal today Exam/Review of Systems Vital Signs Vitals Vital Signs Date Time Temp Pulse Resp B/P Pulse Ox O2 Delivery O2 Flow Rate FiO2 01/30/17 11:34 98.0 79 16 118/81 97 01/29/17 10:00 Room Air 01/29/17 08:38 21 01/27/17 09:56 1.0 Intake and Output 01/29/17 01/29/17 01/30/17 15:00 23:00 07:00 Intake Total 520 ml 520 ml 850 ml Output Total 300 ml 600 ml Balance 220 ml -80 ml 850 ml Exam Constitutional: alert, awake, communicative Head: normocephalic ENMT: nl external ears & nose Neck: supple Respiratory: clear BS , no wheezing/crackles Cardiovascular: nl pulses, regular rate and rhythm Gastrointestinal: non-tender, soft Extremities: normal pulses, Results Result Diagram: 01/29/17 0323 01/29/17 032 Medications Medications Current Medications Ondansetron HCl (Zofran Inj) 4 mg Q6H PRN IV NAUSEA AND/OR VOMITING; Start at 11:00 Nitroglycerin (Nitroglycerin (Sl Tab) 0.4 Mg) 1 tab Q5M PRN SL CHEST PAIN; Start 01/26/17 at 11:00 Lorazepam (Ativan) 1 mg Q2H PRN IV ANXIETY Last administered on 01/27/17 15:35 ; Admin Dose 1 MG; Start 01/26/17 at 11:00 Quetiapine Fumarate (Seroquel) 25 mg DAILY PRN PO AGITATION Last administered on 01/27/17 13:54; Admin Dose 25 MG; Start 01/26/17 at 12:30 Atorvastatin Calcium 40 mg 40 mg HS PO ; Start 01/26/17 at 21:00; Status Future Hold Acyclovir 500 mg/ Sodium Chloride 100 ml @ 100 mls/hr Q8 IVPB Last administered on 01/30/17 06:00; Admin Dose 100 MLS/HR; Start 01/27/17 at 14:00 Ceftriaxone Sodium (Rocephin) 50 ml @ 100 mls/hr Q12 IVPB Last administered on 01/30/17 10:08; Admin Dose 100 MLS/HR; Start 01/28/17 at 11:30 Famotidine (Pepcid) 20 mg Q12 PO Last administered on 01/30/17 10:08; Admin Dose 20 MG; Start 01/28/17 at 21:00 MEDARDO CAM MD Jan 30, 2017 12:00
--- NOTE | 2017-01-30 16:17 | CONS ---
Date/Time of Note Date/Time of Note DATE: 01/30/17 TIME: 16:15 Assessment/Plan Assessment/Plan Chief Complaint/Hosp Course SUBJECTIVE DATA: No events overnight. Alert, feels good, no fevers MICROBIOLOGY: CSF culture negative PHYSICAL EXAMINATION: GENERAL: Well-developed, middle-aged white man, who is alert, in no distress. HEENT: Head atraumatic, normocephalic. Sclerae anicteric. Buccal mucosa dry. NECK: Supple. LUNGS: Chest rise symmetrical. Breath sounds clear. HEART: S1, S2. ABDOMEN: Soft, bowel sounds present. EXTREMITIES: Without cyanosis, edema. ASSESSMENT: 1. Resolving acute encephalopathy, etiology unclear, no radiographic evidence of acute intracranial pathology ?WNV. Cerebrospinal fluid cultures negative. Patient is being followed by Neurology. 2. Status post systemic inflammatory response syndrome on admission. Plan: Remains stable, CSF cx negative, will dc abx and observe, f/u neuro rec-s , f/u final workup dw Dr Kinsey Problems: Consultation Date/Type/Reason Admit Date/Time Jan 26, 2017 at 13:58 Initial Consult Date 01/27/17 Type of Consultation: id Referring Provider: MONET FLORES V. PUBLIC SERVICE REPRESENTATIVE Exam/Review of Systems Vital Signs Vitals Vital Signs Date Time Temp Pulse Resp B/P Pulse Ox O2 Delivery O2 Flow Rate FiO2 01/30/17 15:27 98.4 73 16 126/66 98 01/29/17 10:00 Room Air 01/29/17 08:38 21 01/27/17 09:56 1.0 Intake and Output 01/29/17 01/29/17 01/30/17 15:00 23:00 07:00 Intake Total 520 ml 520 ml 850 ml Output Total 300 ml 600 ml Balance 220 ml -80 ml 850 ml Results Result Diagram: 01/29/17 0323 01/29/17 0323 Medications Medications Current Medications Ondansetron HCl (Zofran Inj) 4 mg Q6H PRN IV NAUSEA AND/OR VOMITING; Start at 11:00 Nitroglycerin (Nitroglycerin (Sl Tab) 0.4 Mg) 1 tab Q5M PRN SL CHEST PAIN; Start 01/26/17 at 11:00 Lorazepam (Ativan) 1 mg Q2H PRN IV ANXIETY Last administered on 01/27/17t 15:35 ; Admin Dose 1 MG; Start 01/26/17 at 11:00 Quetiapine Fumarate (Seroquel) 25 mg DAILY PRN PO AGITATION Last administered on 01/27/17 13:54; Admin Dose 25 MG; Start 01/26/17 at 12:30 Atorvastatin Calcium 40 mg 40 mg HS PO ; Start 01/26/17 at 21:00; Status Future Hold Acyclovir 500 mg/ Sodium Chloride 100 ml @ 100 mls/hr Q8 IVPB Last administered on 01/30/17 14:51; Admin Dose 100 MLS/HR; Start 01/27/17 at 14:00 Ceftriaxone Sodium (Rocephin) 50 ml @ 100 mls/hr Q12 IVPB Last administered on 01/30/17 10:08; Admin Dose 100 MLS/HR; Start 01/28/17 at 11:30 Famotidine (Pepcid) 20 mg Q12 PO Last administered on 01/30/17 10:08; Admin Dose 20 MG; Start 01/28/17 at 21:00 CECI SPANN NP Jan 30, 2017 16:17
--- NOTE | 2017-01-30 17:17 | CONS ---
Date/Time of Note Date/Time of Note DATE: 01/30/17 TIME: 17:13 Assessment/Plan Assessment/Plan Chief Complaint/Hosp Course Found unresponsive Problems: Additional Assessment/Plan 51 year old male with HTN, HLD was hiking yesterday and returned home found by his roommate unresponsive with severe metabolic abnormalities: hyponatremia, elevated lactic acid and leukocytosis with shift. Mental status and hyponatremia significantly improved. CSF studies: CSF WBc2, RBC 0, Glucose 65, Protein 96 Lymphocytes pending Viral panel pending Recommendations: -avoid ativan due to inability to monitor his neurologic status, if needed for agitation recommended low dose Seroquel 25 mg daily prn -rule out FEDERAL AGENT infection follow up Cultures, Fungal, Bacterial cultures, Viral encephalitis panel include West Nile Virus, HSV I,II PCR, full infectious work up -MRI Brain without contrast unrevealing -Routine EEG completed- to be reviewed -nephrology following, for hyponatremia Consultation Date/Type/Reason Admit Date/Time Jan 26, 2017 at 13:58 Initial Consult Date 01/27/17 Type of Consultation: id Referring Provider: MONET FLORES NP 24 HR Interval Summary Free Text/Dictation Improved significantly. No new complaints. EEG showed generalized background slowing without any seizure activity consistant with encephalopathy. Constitutional: improved, no complaints Exam/Review of Systems Vital Signs Vitals Vital Signs Date Time Temp Pulse Resp B/P Pulse Ox O2 Delivery O2 Flow Rate FiO2 01/30/17 16:37 75 01/30/17 15:27 98.4 16 126/66 98 01/29/17 10:00 Room Air 01/29/17 08:38 21 01/27/17 09:56 1.0 Intake and Output 01/29/17 01/29/17 01/30/17 15:00 23:00 07:00 Intake Total 520 ml 520 ml 850 ml Output Total 300 ml 600 ml Balance 220 ml -80 ml 850 ml Exam Constitutional: alert, oriented, well developed Psych: nl mood/affect, no complaints Head: atraumatic, normocephalic Eyes: nl conjunctiva, nl lids ENMT: nl external ears & nose, nl lips & teeth, nl nasal mucosa & septum Neck: non-tender, supple Respiratory: clear to auscultation, normal air movement Cardiovascular: nl pulses, regular rate and rhythm Gastrointestinal: nl liver, spleen, non-tender, soft Musculoskeletal: nl extremities to inspection, nl gait and stance Extremities: normal pulses Neurological: FEDERAL AGENT II-XII intact, nl mental status, nl speech, nl strength (No meningeal signs) Skin: nl turgor Lymph: nl lymph nodes Results Result Diagram: 01/29/173 01/29/17322 Medications Medications Current Medications Ondansetron HCl (Zofran Inj) 4 mg Q6H PRN IV NAUSEA AND/OR VOMITING; Start at 11:00 Nitroglycerin (Nitroglycerin (Sl Tab) 0.4 Mg) 1 tab Q5M PRN SL CHEST PAIN; Start 01/26/17 at 11:00 Lorazepam (Ativan) 1 mg Q2H PRN IV ANXIETY Last administered on 01/27/17 15:35 ; Admin Dose 1 MG; Start 01/26/17 at 11:00 Quetiapine Fumarate (Seroquel) 25 mg DAILY PRN PO AGITATION Last administered on 01/27/17 13:54; Admin Dose 25 MG; Start 01/26/17 at 12:30 Atorvastatin Calcium (Lipitor) 40 mg HS PO ; Start 01/26/17 at 21:00; Status Future Hold Famotidine (Pepcid) 20 mg Q12 PO Last administered on 01/30/17 10:08; Admin Dose 20 MG; Start 01/28/17 at 21:00 Procedures Procedures MRI of brain 01/29/17 IMPRESSION: 1. Limited, incomplete evaluation discussed above. 2. No gross acute intracranial pathology seen. RPTAT: VV .Alfredo Steele MD, MD Date Time Electronically viewed and signed by .Alfredo Steele MD, MD on 01/27/2017 16:14 GRAYSON SARABIA MD Jan 30, 2017 17:17
--- NOTE | 2017-01-30 21:06 | CONS ---
Date/Time of Note Date/Time of Note DATE: 01/30/17 TIME: 21:04 Consult Date/Type/Reason Admit Date/Time Jan 26, 2017 at 13:58 Initial Consult Date 01/27/17 Type of Consultation: CARDIOLOGY Ordering Provider: MONET FLORES V. NUTRITION SERVICES ASSOCIATE Subjective Discussed with staff and rhythm was reviewed. Patient remained in sinus rhythm. He denies any pain to me including any muscle pain any chest pain. D/W friends at bedside. OBJECTIVE: General: no acute distress HEENT: NC/AT. pupils are equal. round. NECK: NO JVD. no stridor. CV: RRR. systolic murmur; no gallop or rubs. PULM: no wheezing or rhonchi. GI: SOFT, NT, ND, no rebound or guarding Extremity: trace B/L LE edema. no clubbing. neuro: awake and alert, OX3 Psych: calm and pleasant rectal: deferred : normal derm: skin rash right hand ECHOCARDIOGRAM was personally reviewed: Conclusions 1. Normal left ventricular systolic function. Mild concentric left ventricular hypertrophy. Ejection fraction is visually estimated at 55 %. Tissue Doppler/Mitral Doppler indices are consistent with impaired relaxation (Stage I diastolic dysfunction). 2. The left atrium is normal in size. 3. Normal appearance and function of the mitral valve with trace physiologic regurgitation. 4. Aortic sclerosis without stenosis. Trileaflet aortic valve. Trace to mild aortic valve regurgitation. 5. Normal appearance of the tricuspid valve. Estimated peak PA systolic pressure 37 mmHg. There is trace tricuspid regurgitation. Objective Vital Signs Date Time Temp Pulse Resp B/P Pulse Ox O2 Delivery O2 Flow Rate FiO2 01/30/17 20:14 96 01/30/17 20:12 99.4 16 121/79 98 01/29/17 10:00 Room Air 01/29/17 08:38 21 01/27/17 09:56 1.0 Intake and Output 01/29/17 01/29/17 01/30/17 14:59 22:59 06:59 Intake Total 520 ml 520 ml 850 ml Output Total 300 ml 600 ml Balance 220 ml -80 ml 850 ml Results/Medications Result Diagram: 01/29/17 0323 01/29/17 0323 Medications Current Medications Ondansetron HCl (Zofran Inj) 4 mg Q6H PRN IV NAUSEA AND/OR VOMITING; Start at 11:00 Nitroglycerin (Nitroglycerin (Sl Tab) 0.4 Mg) 1 tab Q5M PRN SL CHEST PAIN; Start 01/26/17 at 11:00 Lorazepam (Ativan) 1 mg Q2H PRN IV ANXIETY Last administered on 01/27/17 15:35 ; Admin Dose 1 MG; Start 01/26/17 at 11:00 Quetiapine Fumarate (Seroquel) 25 mg DAILY PRN PO AGITATION Last administered on 01/27/17 13:54; Admin Dose 25 MG; Start 01/26/17 at 12:30 Atorvastatin Calcium (Lipitor) 40 mg HS PO ; Start 01/26/17 at 21:00; Status Future Hold Famotidine (Pepcid) 20 mg Q12 PO Last administered on 01/30/17 21:02; Admin Dose 20 MG; Start 01/28/17 at 21:00 Assessment/Plan Chief Complaint/Hosp Course 1. Abnormal troponin: Doubt acute NH. Mostly secondary to troponin leak due to rhabdomyolysis. CK is markedly elevated but CK MB is not c/w false + troponin. pt was advised to follow up as outpt for out pt stress Echo 2. Altered level of consciousness/ encepphalopathy: defer to the primary internal medicine team. Follow-up with neurology recommendation. LP result is done 3, history of hypertension currently stable off of meds. will monitor. 4. History of dyslipidemia on statin at home. hold off on statin until ck level is lower. 5. Electrolytes abnormalities and hyponatremia: Is being managed by the renal team. 6. Possible rhabdomyolysis: resolved now. no further cardiac rec at this time. will f/u prn over the weekend Thank you for this referral. Problems: DAY AMBRIZ MD Jan 30, 2017 21:06
[2017-01-31] VITALS (12 sets, daily range): BP systolic 94–121; BP diastolic 55–77; PULSE 69–95; RESP 17–20
[2017-01-31] MEDS: FAMOTIDINE 20 MG TAB PO SCH ×2 (08:23→22:01)
[2017-01-31 08:55] LABS: BASOPHILS % 0.6 % (0.0-2.0); EOSINOPHILS # 0.2 10^3/ul (0.0-0.5); EOSINOPHILS % 2.3 % (0.0-7.0); HEMATOCRIT 45.6 % (42.0-52.0); HEMOGLOBIN 15.3 g/dl (14.0-18.0); LYMPHOCYTES # 1.5 10^3/ul (0.8-2.9); LYMPHOCYTES % 21.4 % (15.0-51.0); MEAN CORPUSCULAR HEMOGLOBIN 29.5 pg (29.0-33.0); MEAN CORPUSCULAR HGB CONC 33.6 g/dl (32.0-37.0); MEAN PLATELET VOLUME 9.2 fl (7.4-10.4); MONOCYTE # 0.5 10^3/ul (0.3-0.9); MONOCYTES % 7.3 % (0.0-11.0); NEUTROPHILS % 68.1 % (39.0-77.0); PLATELET COUNT 376 10^3/UL (140-415); RED BLOOD COUNT 5.18 10^6/ul (4.70-6.10); RED CELL DISTRIBUTION WIDTH 12.7 % (11.5-14.5)
--- NOTE | 2017-01-31 09:04 | PRO ---
DATE OF PROCEDURE: 01/26/2017 INDICATION: This is a 51-year-old male who was admitted following having been found confused and with altered mental status. CURRENT MEDICATIONS: Lipitor, Seroquel, Ativan. TECHNIQUE: Utilizing a 16 channel EEG machine cap, scalp electrodes were applied in accordance with the International 10/20 system. Scalp to scalp and scalp to ear montages were displayed, electrical impedances were measured and reported. DESCRIPTION OF PROCEDURE: During a resting state posterior dominant rhythm of about 6-7 hertz were seen bihemispheric. Photic stimulation had no response. Hyperventilation was not performed. There was no focal lateralizing or epileptiform discharges are identified. INTERPRETATION: This is an abnormal EEG due to presence of generalized bihemispheric background slowing without any epileptiform activity, consistent with encephalopathic process. Please correlate these findings with the patient's clinical picture. Dictated By: Erica Adams MD /analia/monroe /Document#: [id number]
[2017-01-31 09:14] LABS: CALCIUM 9.9 mg/dl (8.4-10.2); CREATININE 0.91 mg/dl (0.61-1.24); MAGNESIUM 2.3 mg/dl (1.7-2.5); POTASSIUM 4.5 mmol/L (3.5-5.1)
--- NOTE | 2017-01-31 11:55 | CONS ---
Date/Time of Note Date/Time of Note DATE: 01/31/17 TIME: 11:54 Assessment/Plan Assessment/Plan Additional Assessment/Plan Assessment and recommendations; 1. Patient admitted with encephalopathy with marked overall interval improvement. Consider discharge. Consultation Date/Type/Reason Admit Date/Time Jan 26, 2017 at 13:58 Initial Consult Date 01/27/17 Type of Consultation: Pulmonary Referring Provider: MONET FLORES NP 24 HR Interval Summary Free Text/Dictation Patient condition is stable. Denies any shortness of breath, chest pain, fever chills. Patient mental status also is markedly improved. General exam; young male, awake alert currently in no distress. Exam/Review of Systems Vital Signs Vitals Vital Signs Date Time Temp Pulse Resp B/P Pulse Ox O2 Delivery O2 Flow Rate FiO2 01/31/17 11:25 98.8 92 20 121/77 94 01/29/17 10:00 Room Air 01/29/17 08:38 21 01/27/17 09:56 1.0 Intake and Output 01/30/17 01/30/17 01/31/17 15:00 23:00 07:00 Intake Total 1890 ml 800 ml Output Total 2550 ml Balance -660 ml 800 ml Exam HEENT exam; supple neck, no JVD. No lymphadenopathy. Midline trachea. No thyromegaly. Pharynx is clear. Patient has good dentition. Pupils are midsize and reactive to light. Chest exam; clear to auscultation. S1-S2 audible, no murmurs. Regular rhythm. Abdomen exam; soft, no organomegaly. Bowel sounds audible. Extremity exam; no peripheral edema. Pulses 2+ bilaterally. PAPERHANGER APPRENTICE exam; no focal deficit. Results Result Diagram: 01/31/17 0800 01/31/17 0801 Results 24 hrs Laboratory Tests Test 01/31/17 08:00 01/31/17 08:01 White Blood Count 7.0 Red Blood Count 5.18 Hemoglobin 15.3 Hematocrit 45.6 Mean Corpuscular Volume 88.0 Mean Corpuscular Hemoglobin 29.5 Mean Corpuscular Hemoglobin Concent 33.6 Red Cell Distribution Width 12.7 Platelet Count 376 # Mean Platelet Volume 9.2 Neutrophils % 68.1 Lymphocytes % 21.4 Monocytes % 7.3 Eosinophils % 2.3 Basophils % 0.6 Nucleated Red Blood Cells % 0.0 Neutrophils # (Manual) 5 Lymphocytes # 1.5 Monocytes # 0.5 Eosinophils # 0.2 Basophils # 0.0 Nucleated Red Blood Cells # 0.0 Creatine Kinase 23583 H Sodium Level 139 Potassium Level 4.5 Chloride Level 100 Carbon Dioxide Level 28 Anion Gap 16 Blood Urea Nitrogen 16 Creatinine 0.91 Glucose Level 102 Calcium Level 9.9 Magnesium Level 2.3 Medications Medications Current Medications Ondansetron HCl (Zofran Inj) 4 mg Q6H PRN IV NAUSEA AND/OR VOMITING; Start at 11:00 Nitroglycerin (Nitroglycerin (Sl Tab) 0.4 Mg) 1 tab Q5M PRN SL CHEST PAIN; Start 01/26/17 at 11:00 Lorazepam (Ativan) 1 mg Q2H PRN IV ANXIETY Last administered on 01/27/17 15:35 ; Admin Dose 1 MG; Start 01/26/17 at 11:00 Quetiapine Fumarate (Seroquel) 25 mg DAILY PRN PO AGITATION Last administered on 01/27/17 13:54; Admin Dose 25 MG; Start 01/26/17 at 12:30 Atorvastatin Calcium (Lipitor) 40 mg HS PO ; Start 01/26/17 at 21:00; Status Future Hold Famotidine (Pepcid) 20 mg Q12 PO Last administered on 01/31/17 08:23; Admin Dose 20 MG; Start 01/28/17 at 21:00 BERTIN WALSH Jan 31, 2017 11:55
--- NOTE | 2017-01-31 12:38 | CONS ---
Date/Time of Note Date/Time of Note DATE: 01/31/17 TIME: 12:35 Assessment/Plan Assessment/Plan Additional Assessment/Plan 51 year old male with HTN, HLD was hiking yesterday and returned home found by his roommate unresponsive- he was brought in by Ambulance with altered mental status. He is noted with severe metabolic abnormalities: hyponatremia, elevated lactic acid and leukocytosis with shift. He remains encephalopathic- Currently his BP also dropped to systolic 80s Renal has been consulted for acute hyponatremia with Na 122, HCO3 16. Renal has been consulted for severe hyponatremia, Severe metabolic acidosis. Problems: Additional Assessment/Plan 1. acute metabolic encephalopathy vs Infectious encephalopathy 2. severe hyponatremia- Resolved 3. severe metabolic acidosis- resolved, S/p Bicarbonate drip x 24 hr 4. Hypokalemia- resolved 5. Sepsis with Hypotension On IVabx, ID following, Unclear etiology at this point 6. acute rhabdomyolysis Resolved Plan: on IV abx ceftriaxone and acyclovir, monitor Cr while pt is on Acyclovir since it can cause cystal induced KAYLA. s/p lumbar pucnture, no WBC on CSF fluid, ID following MRi brain limited but negative for acute findings, Neurology has been following patient currently Cr and electrolytes stable will follow up Consultation Date/Type/Reason Admit Date/Time Jan 26, 2017 at 13:58 Initial Consult Date 01/27/17 Type of Consultation: NEPHROLOGY Referring Provider: MONET FLORES NP 24 HR Interval Summary Free Text/Dictation nad, afebrile, off antibiotics, sitting up in chair, denies any complaints, All Qa answered,wants to go home, dw staff Exam/Review of Systems Vital Signs Vitals Vital Signs Date Time Temp Pulse Resp B/P Pulse Ox O2 Delivery O2 Flow Rate FiO2 01/31/17 11:25 98.8 92 20 121/77 94 01/29/17 10:00 Room Air 01/29/17 08:38 21 01/27/17 09:56 1.0 Intake and Output 01/30/17 01/30/17 01/31/17 15:00 23:00 07:00 Intake Total 1890 ml 800 ml Output Total 2550 ml Balance -660 ml 800 ml Exam Constitutional: alert, oriented, well developed Respiratory: clear to auscultation, normal air movement Cardiovascular: nl pulses, regular rate and rhythm Gastrointestinal: non-tender, soft Musculoskeletal: nl extremities to inspection, nl gait and stance Extremities: normal pulses Neurological: nl mental status, nl speech Results Result Diagram: 01/31/17 0800 01/31/17 0801 Results 24 hrs Laboratory Tests Test 01/31/17 08:00 01/31/17 08:01 White Blood Count 7.0 Red Blood Count 5.18 Hemoglobin 15.3 Hematocrit 45.6 Mean Corpuscular Volume 88.0 Mean Corpuscular Hemoglobin 29.5 Mean Corpuscular Hemoglobin Concent 33.6 Red Cell Distribution Width 12.7 Platelet Count 376 # Mean Platelet Volume 9.2 Neutrophils % 68.1 Lymphocytes % 21.4 Monocytes % 7.3 Eosinophils % 2.3 Basophils % 0.6 Nucleated Red Blood Cells % 0.0 Neutrophils # (Manual) 5 Lymphocytes # 1.5 Monocytes # 0.5 Eosinophils # 0.2 Basophils # 0.0 Nucleated Red Blood Cells # 0.0 Creatine Kinase 10832 H Sodium Level 139 Potassium Level 4.5 Chloride Level 100 Carbon Dioxide Level 28 Anion Gap 16 Blood Urea Nitrogen 16 Creatinine 0.91 Glucose Level 102 Calcium Level 9.9 Magnesium Level 2.3 Medications Medications Current Medications Ondansetron HCl (Zofran Inj) 4 mg Q6H PRN IV NAUSEA AND/OR VOMITING; Start at 11:00 Nitroglycerin (Nitroglycerin (Sl Tab) 0.4 Mg) 1 tab Q5M PRN SL CHEST PAIN; Start 01/26/17 at 11:00 Lorazepam (Ativan) 1 mg Q2H PRN IV ANXIETY Last administered on 01/27/17 15:35 ; Admin Dose 1 MG; Start 01/26/17 at 11:00 Quetiapine Fumarate (Seroquel) 25 mg DAILY PRN PO AGITATION Last administered on 01/27/17 13:54; Admin Dose 25 MG; Start 01/26/17 at 12:30 Atorvastatin Calcium (Lipitor) 40 mg HS PO ; Start 01/26/17 at 21:00; Status Future Hold Famotidine (Pepcid) 20 mg Q12 PO Last administered on 01/31/17 08:23; Admin Dose 20 MG; Start 01/28/17 at 21:00 OJ PERRY Jan 31, 2017 12:38
--- NOTE | 2017-01-31 13:40 | PN ---
Date/Time of Note Date/Time of Note DATE: 01/31/17 TIME: 13:37 Assessment/Plan VTE Prophylaxis VTE Prophylaxis Intervention: ambulation Lines/Catheters IV Catheter Type (from [facility]): Saline Lock Urinary Cath still in place: No Assessment/Plan Problems: (1) Rhabdomyolysis Status: Acute Comment: The follow-up CPK which was supposed to be normal is 10 times what it was before. Whether this is a reaction to Seroquel which is dubious a late reaction to stopping the atorvastatin which does make any sense a laboratory air or injury from him walking around a lot is to be determined. Need to check his aldolase and repeat check the CPK in the morning. Qualifiers: Rhabdomyolysis type: non-traumatic Qualified Code: M62.82 - Non-traumatic rhabdomyolysis (2) Hyponatremia Status: Resolved Comment: Resolved. (3) Acute encephalopathy Status: Acute Comment: He is off of Ativan and we will stop the Seroquel. In my evaluation of him partially he looks like obsessive-compulsive disorder but frankly actually looks like a hypomanic phase of bipolar affective disorder. This can be treated as an outpatient by his primary care physician Dr. Sumi Alexander Subjective 24 Hr Interval Summary Free Text/Dictation Patient very animated and talkative. Reports he is ready to go home. Constitutional: no complaints (No fever chills or sweats) Respiratory: no complaints Cardiovascular: no complaints Gastrointestinal: no complaints Genitourinary: no complaints Musculoskeletal: other (Specifically denies any muscular pain weakness etc.) Neurologic: no complaints Exam/Review of Systems Vital Signs Vitals Vital Signs Date Time Temp Pulse Resp B/P Pulse Ox O2 Delivery O2 Flow Rate FiO2 01/31/17 11:25 98.8 92 20 121/77 94 01/29/17 10:00 Room Air 01/29/17 08:38 21 01/27/17 09:56 1.0 Intake and Output 01/30/17 01/30/17 01/31/17 15:00 23:00 07:00 Intake Total 1890 ml 800 ml Output Total 2550 ml Balance -660 ml 800 ml Exam Constitutional: alert, oriented Psych: anxiety, no complaints, other (Push of speech) Neck: non-tender, supple Respiratory: clear to auscultation, normal air movement Cardiovascular: nl pulses, regular rate and rhythm Gastrointestinal: nl liver, spleen, non-tender, soft Results Result Diagram: 01/31/17 0800 01/31/17 0801 Results 24 hrs Laboratory Tests Test 01/31/17 08:00 01/31/17 08:01 White Blood Count 7.0 Red Blood Count 5.18 Hemoglobin 15.3 Hematocrit 45.6 Mean Corpuscular Volume 88.0 Mean Corpuscular Hemoglobin 29.5 Mean Corpuscular Hemoglobin Concent 33.6 Red Cell Distribution Width 12.7 Platelet Count 376 # Mean Platelet Volume 9.2 Neutrophils % 68.1 Lymphocytes % 21.4 Monocytes % 7.3 Eosinophils % 2.3 Basophils % 0.6 Nucleated Red Blood Cells % 0.0 Neutrophils # (Manual) 5 Lymphocytes # 1.5 Monocytes # 0.5 Eosinophils # 0.2 Basophils # 0.0 Nucleated Red Blood Cells # 0.0 Creatine Kinase 02886 H Sodium Level 139 Potassium Level 4.5 Chloride Level 100 Carbon Dioxide Level 28 Anion Gap 16 Blood Urea Nitrogen 16 Creatinine 0.91 Glucose Level 102 Calcium Level 9.9 Magnesium Level 2.3 Medications Medications Current Medications Ondansetron HCl (Zofran Inj) 4 mg Q6H PRN IV NAUSEA AND/OR VOMITING; Start at 11:00 Nitroglycerin (Nitroglycerin (Sl Tab) 0.4 Mg) 1 tab Q5M PRN SL CHEST PAIN; Start 01/26/17 at 11:00 Lorazepam (Ativan) 1 mg Q2H PRN IV ANXIETY Last administered on 01/27/17 15:35 ; Admin Dose 1 MG; Start 01/26/17 at 11:00 Quetiapine Fumarate (Seroquel) 25 mg DAILY PRN PO AGITATION Last administered on 01/27/17 13:54; Admin Dose 25 MG; Start 01/26/17 at 12:30 Atorvastatin Calcium (Lipitor) 40 mg HS PO ; Start 01/26/17 at 21:00; Status Future Hold Famotidine (Pepcid) 20 mg Q12 PO Last administered on 01/31/17 08:23; Admin Dose 20 MG; Start 01/28/17 at 21:00 JOSEPH VELIZ MD Jan 31, 2017 13:39
--- NOTE | 2017-01-31 14:25 | CONS ---
Date/Time of Note Date/Time of Note DATE: 01/31/17 TIME: 14:21 Assessment/Plan Assessment/Plan Chief Complaint/Hosp Course Found unresponsive Problems: Additional Assessment/Plan 51 year old male with HTN, HLD was hiking yesterday and returned home found by his roommate unresponsive with severe metabolic abnormalities: hyponatremia, elevated lactic acid and leukocytosis with shift. Mental status and hyponatremia significantly improved. [place] more than [address] suggests Rhabdomyolysis. CSF studies: CSF WBc2, RBC 0, Glucose 65, Protein 96 Lymphocytes pending Viral panel pending Recommendations: -avoid sedatives -rule out TRAVEL CLERK infection follow up Cultures, Fungal, Bacterial cultures, Viral encephalitis panel include West Nile Virus, HSV I,II PCR, full infectious work up -MRI Brain without contrast unrevealing -Repeat CPK in AM -nephrology following, for hyponatremia Consultation Date/Type/Reason Admit Date/Time Jan 26, 2017 at 13:58 Initial Consult Date 01/27/17 Type of Consultation: Pulmonary Referring Provider: MONET FLORES NP 24 HR Interval Summary Free Text/Dictation Doing well. No complaints. CPK [place] was found to [place] [address]. He has no symptoms. Exam/Review of Systems Vital Signs Vitals Vital Signs Date Time Temp Pulse Resp B/P Pulse Ox O2 Delivery O2 Flow Rate FiO2 01/31/17 11:25 98.8 92 20 121/77 94 01/29/17 10:00 Room Air 01/29/17 08:38 21 01/27/17 09:56 1.0 Intake and Output 01/30/17 01/30/17 01/31/17 15:00 23:00 07:00 Intake Total 1890 ml 800 ml Output Total 2550 ml Balance -660 ml 800 ml Exam Constitutional: alert, oriented, well developed Psych: nl mood/affect, no complaints Head: atraumatic, normocephalic Eyes: EOMI, nl conjunctiva, nl lids ENMT: nl external ears & nose, nl lips & teeth, nl nasal mucosa & septum Neck: non-tender, supple Respiratory: clear to auscultation, normal air movement Cardiovascular: nl pulses, regular rate and rhythm Gastrointestinal: nl liver, spleen, non-tender, soft Musculoskeletal: nl extremities to inspection, nl gait and stance Extremities: normal pulses Neurological: TRAVEL CLERK II-XII intact, nl mental status, nl speech, nl strength Skin: nl turgor Results Result Diagram: 01/31/17 0800 01/31/17 0801 Results 24 hrs Laboratory Tests Test 01/31/17 08:00 01/31/17 08:01 White Blood Count 7.0 Red Blood Count 5.18 Hemoglobin 15.3 Hematocrit 45.6 Mean Corpuscular Volume 88.0 Mean Corpuscular Hemoglobin 29.5 Mean Corpuscular Hemoglobin Concent 33.6 Red Cell Distribution Width 12.7 Platelet Count 376 # Mean Platelet Volume 9.2 Neutrophils % 68.1 Lymphocytes % 21.4 Monocytes % 7.3 Eosinophils % 2.3 Basophils % 0.6 Nucleated Red Blood Cells % 0.0 Neutrophils # (Manual) 5 Lymphocytes # 1.5 Monocytes # 0.5 Eosinophils # 0.2 Basophils # 0.0 Nucleated Red Blood Cells # 0.0 Creatine Kinase 27117 H Sodium Level 139 Potassium Level 4.5 Chloride Level 100 Carbon Dioxide Level 28 Anion Gap 16 Blood Urea Nitrogen 16 Creatinine 0.91 Glucose Level 102 Calcium Level 9.9 Magnesium Level 2.3 Medications Medications Current Medications Ondansetron HCl (Zofran Inj) 4 mg Q6H PRN IV NAUSEA AND/OR VOMITING; Start at 11:00 Nitroglycerin (Nitroglycerin (Sl Tab) 0.4 Mg) 1 tab Q5M PRN SL CHEST PAIN; Start 01/26/17 at 11:00 Lorazepam (Ativan) 1 mg Q2H PRN IV ANXIETY Last administered on 01/27/17 15:35 ; Admin Dose 1 MG; Start 01/26/17 at 11:00 Quetiapine Fumarate (Seroquel) 25 mg DAILY PRN PO AGITATION Last administered on 01/27/17 13:54; Admin Dose 25 MG; Start 01/26/17 at 12:30; Status Future Hold Atorvastatin Calcium (Lipitor) 40 mg HS PO ; Start 01/26/17 at 21:00; Status Future Hold Famotidine (Pepcid) 20 mg Q12 PO Last administered on 01/31/17 08:23; Admin Dose 20 MG; Start 01/28/17 at 21:00 GRAYSON SARABIA MD Jan 31, 2017 14:25
[2017-01-31 15:53] LABS: BACT AG SOURCE CEREBROSPINAL FLUID; BACT AG STREP GP B NOT DETECTED; BACT AG STREP PNEUMONIAE NOT DETECTED
[2017-02-01] VITALS (9 sets, daily range): BP systolic 100–111; BP diastolic 56–82; PULSE 63–100; RESP 18–20
[2017-02-01 04:15] LABS: HERPES SIMPLEX 1 DNA NOT DETECTED; HERPES SIMPLEX 2 DNA NOT DETECTED; HERPES SIMPLEX PCR SOURCE CEREBROSPINAL FLUID
[2017-02-01 08:10] LABS: ALANINE AMINOTRANSFERASE 136 IU/L (13-69); ALBUMIN 4.7 g/dl (3.3-4.9); ALBUMIN/GLOBULIN RATIO 1.27; ALKALINE PHOSPHATASE 95 IU/L (42-121); ANION GAP 23 (8-16); ASPARTATE AMINO TRANSFERASE 199 IU/L (15-46); BILIRUBIN,INDIRECT 0.4 mg/dl (0-1.1); BILIRUBIN,TOTAL 0.4 mg/dl (0.2-1.3); BLOOD UREA NITROGEN 18 mg/dl (7-20); CALCIUM 10.4 mg/dl (8.4-10.2); CARBON DIOXIDE 29 mmol/L (21-31); CHLORIDE 97 mmol/L (97-110); CREATININE 0.93 mg/dl (0.61-1.24); GLUCOSE 101 mg/dl (70-220); POTASSIUM 4.3 mmol/L (3.5-5.1); SODIUM 145 mmol/L (135-144); TOTAL PROTEIN 8.4 g/dl (6.1-8.1)
[2017-02-01 08:38] LABS: CK-MB 0.95 ng/ml (0.0-2.4); TROPONIN-I < 0.012 ng/ml (0.00-0.12)
[2017-02-01 09:01] LABS: CREATINE KINASE 7278 IU/L (23-200)
[2017-02-01] MEDS: FAMOTIDINE 20 MG TAB PO SCH (09:58)
--- NOTE | 2017-02-01 13:04 | CONS ---
Date/Time of Note Date/Time of Note DATE: 02/01/17 TIME: 12:53 Assessment/Plan Assessment/Plan Additional Assessment/Plan 51 year old male with HTN, HLD was hiking yesterday and returned home found by his roommate unresponsive- he was brought in by Ambulance with altered mental status. He is noted with severe metabolic abnormalities: hyponatremia, elevated lactic acid and leukocytosis with shift. He remains encephalopathic- Currently his BP also dropped to systolic 80s Renal has been consulted for acute hyponatremia with Na 122, HCO3 16. Renal has been consulted for severe hyponatremia, Severe metabolic acidosis. Additional Assessment/Plan 1. acute metabolic encephalopathy vs Infectious encephalopathy 2. severe hyponatremia- Resolved 3. severe metabolic acidosis- resolved, S/p Bicarbonate drip x 24 hr 4. Hypokalemia- resolved 5. Sepsis with Hypotension On IVabx, ID following, Unclear etiology at this point 6. acute rhabdomyolysis Resolved Plan: on IV abx ceftriaxone and acyclovir, monitor Cr while pt is on Acyclovir since it can cause cystal induced KAYLA. s/p lumbar pucnture, no WBC on CSF fluid, ID following MRi brain limited but negative for acute findings, Neurology has been following patient currently Cr and electrolytes stable will follow up Dw Dr Saibno Cabezas Consultation Date/Type/Reason Admit Date/Time Jan 26, 2017 at 13:58 Initial Consult Date 01/27/17 Type of Consultation: NEPHROLOGY Referring Provider: MONET FLORES NP 24 HR Interval Summary Constitutional: improved Detailed Summary Respiratory: no complaints Cardiovascular: no complaints Gastrointestinal: no complaints Genitourinary: no complaints Musculoskeletal: no complaints Exam/Review of Systems Vital Signs Vitals Vital Signs Date Time Temp Pulse Resp B/P Pulse Ox O2 Delivery O2 Flow Rate FiO2 02/01/17 11:53 99.4 94 18 111/70 97 01/29/17 10:00 Room Air 01/29/17 08:38 21 Intake and Output 01/31/17 01/31/17 02/01/17 15:00 23:00 07:00 Intake Total 600 ml Balance 600 ml Exam Constitutional: alert, oriented, well developed Respiratory: clear to auscultation, normal air movement Cardiovascular: nl pulses, regular rate and rhythm Gastrointestinal: non-tender, soft Musculoskeletal: nl extremities to inspection Extremities: normal pulses Neurological: nl mental status, nl speech Results Result Diagram: 01/31/17 0800 02/01/17 0705 Results 24 hrs Laboratory Tests Test 02/01/17 07:05 Sodium Level 145 H Potassium Level 4.3 Chloride Level 97 Carbon Dioxide Level 29 Anion Gap 23 #H Blood Urea Nitrogen 18 Creatinine 0.93 Glucose Level 101 Calcium Level 10.4 H Total Bilirubin 0.4 Direct Bilirubin 0.00 Indirect Bilirubin 0.4 Aspartate Amino Transf (AST/SGOT) 199 H Alanine Aminotransferase (ALT/SGPT) 136 H Alkaline Phosphatase 95 Creatine Kinase 7278 #H Creatine Kinase Index Creatinine Kinase MB (Mass) 0.95 Troponin I < 0.012 Total Protein 8.4 H Albumin 4.7 Globulin 3.70 H Albumin/Globulin Ratio 1.27 Medications Medications Current Medications Ondansetron HCl (Zofran Inj) 4 mg Q6H PRN IV NAUSEA AND/OR VOMITING; Start at 11:00 Nitroglycerin (Nitroglycerin (Sl Tab) 0.4 Mg) 1 tab Q5M PRN SL CHEST PAIN; Start 01/26/17 at 11:00 Lorazepam (Ativan) 1 mg Q2H PRN IV ANXIETY Last administered on 01/27/17 15:35 ; Admin Dose 1 MG; Start 01/26/17 at 11:00 Quetiapine Fumarate (Seroquel) 25 mg DAILY PRN PO AGITATION Last administered on 01/27/17 13:54; Admin Dose 25 MG; Start 01/26/17 at 12:30; Status Future Hold Atorvastatin Calcium (Lipitor) 40 mg HS PO ; Start 01/26/17 at 21:00; Status Future Hold Famotidine (Pepcid) 20 mg Q12 PO Last administered on 02/01/17 09:58; Admin Dose 20 MG; Start 01/28/17 at 21:00 OJ PERRY Feb 01, 2017 13:03
--- NOTE | 2017-02-01 14:16 | PDOCDIS ---
Discharge Instructions DIAGNOSIS Discharge Diagnosis Rhabdomyolysis; hyponatremia; acute encephalopathy CONDITION Patient Condition: Fair HOME CARE INSTRUCTIONS: Diet Instructions: Regular ACTIVITY: Activity Restrictions: Slowly Increase Activity Do not operate Power Tool FOLLOW UP/APPOINTMENTS Follow-up Plan Follow-up with primary care physician Dr. Sumi Saldivar this JOSEPH VELIZ MD Feb 01, 2017 14:16
--- NOTE | 2017-02-01 14:20 | DS ---
Date/Time of Note Date/Time of Note DATE: 02/01/17 TIME: 14:17 Discharge Summary Admission/Discharge Info Admit Date/Time Jan 26, 2017 at 13:58 Discharge Date/Time February 01, 2017 Discharge Diagnosis Rhabdomyolysis; hyponatremia; acute encephalopathy Patient Condition: Fair Consults Neurology; pulmonology; cardiology Procedures EEG; echocardiogram; lumbar puncture; CT angiogram of the lungs; CT scan brain; MRI scan brain Hx of Present Illness This is a very unfortunate 51-year-old male with a past medical history of hypertension, hyperlipidemia, who was found altered by his roommate and was brought to the emergency room by ambulance. Last known well time was last night after he arrived home from [facility]. Patient is not able to provide any history due to his current mental status as he was found acutely delirious, confused, restless and non-verbal. Therefore, history was obtained from patient 's roommate. There is no history of substance abuse per roommate. A CT brain study was limited due to motion artifact, however there was no gross hemorrhage or large acute territorial infarction. Patient also had elevated WBC 19,900 with left shift. No fever. He also had a low sodium 122, potassium 3.4 and elevated lactic acid 2.3. Patient also had elevated CK 1333. ABG with a bicarb of 14.3. Drug toxicology was negative. Urine analysis with 2+ ketones and 3+ glucose. There was no WBC, bacteria or leukocyte Estrace. Patient was treated with normal saline,ceftriaxone and Ativan for agitation and was admitted for further evaluation. Hospital Course SUBJECTIVE DATA: No events overnight. Alert, feels good, no fevers MICROBIOLOGY: CSF culture negative PHYSICAL EXAMINATION: GENERAL: Well-developed, middle-aged white man, who is alert, in no distress. HEENT: Head atraumatic, normocephalic. Sclerae anicteric. Buccal mucosa dry. NECK: Supple. LUNGS: Chest rise symmetrical. Breath sounds clear. HEART: S1, S2. ABDOMEN: Soft, bowel sounds present. EXTREMITIES: Without cyanosis, edema. ASSESSMENT: 1. Resolving acute encephalopathy, etiology unclear, no radiographic evidence of acute intracranial pathology ?WNV. Cerebrospinal fluid cultures negative. Patient is being followed by Neurology. 2. Status post systemic inflammatory response syndrome on admission. Plan: Remains stable, CSF cx negative, will dc abx and observe, f/u neuro rec-s , f/u final workup dw Dr Kinsey 51-year-old male. He was admitted to the hospital with altered mental status. Please see the above history of present illness. He resolved during the course of the hospitalization without specific etiologic abnormality. Some of the viral studies are still pending. At this time he is stabilized and able to be discharged. He is not hazard to himself or others he has no known communicable diseases he has good rehabilitation potential. He will need to follow-up with his primary care physician within the week to verify that the CPK levels have come down. Home Meds Reported Medications Losartan Potassium* (Cozaar*) 25 Mg Tablet, 0.5 01/26/17 Atorvastatin* (Atorvastatin*) 40 Mg Tablet, 40 MG PO QHS 01/26/17 Primary Care Provider Care Physician No Primary Time spent on discharge: > 30 minutes Pending Labs Laboratory Tests Test 02/01/17 07:05 Sodium Level 145mmol/L (135-144) Potassium Level 4.3mmol/L (3.5-5.1) Chloride Level 97mmol/L (97-110) Carbon Dioxide Level 29mmol/L (21-31) Anion Gap 23 (8-16) Blood Urea Nitrogen 18mg/dl (7-20) Creatinine 0.93mg/dl (0.61-1.24) Glucose Level 101mg/dl (70-220) Calcium Level 10.4mg/dl (8.4-10.2) Total Bilirubin 0.4mg/dl (0.2-1.3) Direct Bilirubin 0.00mg/dl (0.00-0.20) Indirect Bilirubin 0.4mg/dl (0-1.1) Aspartate Amino Transf (AST/SGOT) 199IU/L (15-46) Alanine Aminotransferase (ALT/SGPT) 136IU/L (13-69) Alkaline Phosphatase 95IU/L (42-121) Creatine Kinase 7278IU/L (23-200) Creatine Kinase Index Creatinine Kinase MB (Mass) 0.95ng/ml (0.0-2.4) Troponin I < 0.012ng/ml (0.00-0.12) Total Protein 8.4g/dl (6.1-8.1) Albumin 4.7g/dl (3.3-4.9) Globulin 3.70g/dl (1.3-3.2) Albumin/Globulin Ratio 1.27 JOSEPH VELIZ MD Feb 01, 2017 14:19
--- NOTE | 2017-02-01 14:51 | CONS ---
Date/Time of Note Date/Time of Note DATE: 02/01/17 TIME: 14:45 Assessment/Plan Assessment/Plan Chief Complaint/Hosp Course Found unresponsive Problems: Additional Assessment/Plan 51 year old male with HTN, HLD was hiking yesterday and returned home found by his roommate unresponsive with severe metabolic abnormalities: hyponatremia, elevated lactic acid and leukocytosis with shift. Mental status and hyponatremia significantly improved. CPK [place] more than [address] suggests Rhabdomyolysis. CSF studies: CSF WBc2, RBC 0, Glucose 65, Protein 96 Lymphocytes pending Viral panel pending Recommendations: -avoid sedatives -rule out [employer]ER infection follow up Cultures, Fungal, Bacterial cultures, Viral encephalitis panel include West Nile Virus, HSV I,II PCR, full infectious work up -MRI Brain without contrast unrevealing -Repeat CPK in AM -nephrology following, for hyponatremia - CPK improving -OK to DC home and follow up as as outpatient. Consultation Date/Type/Reason Admit Date/Time Jan 26, 2017 at 13:58 Initial Consult Date 01/27/17 Type of Consultation: Neurology Referring Provider: MONET FLORES NP 24 HR Interval Summary Free Text/Dictation Improving. No new complaints. CPK is dropping, now 7278. Constitutional: no complaints Exam/Review of Systems Vital Signs Vitals Vital Signs Date Time Temp Pulse Resp B/P Pulse Ox O2 Delivery O2 Flow Rate FiO2 02/01/17 12:30 77 02/01/17 11:53 99.4 18 111/70 97 01/29/17 10:00 Room Air 01/29/17 08:38 21 Intake and Output 01/31/17 01/31/17 02/01/17 15:00 23:00 07:00 Intake Total 600 ml Balance 600 ml Exam Constitutional: alert, oriented, well developed Psych: nl mood/affect, no complaints Head: atraumatic, normocephalic Eyes: EOMI, nl conjunctiva, nl lids ENMT: nl external ears & nose, nl lips & teeth, nl nasal mucosa & septum Neck: non-tender, supple Respiratory: clear to auscultation, normal air movement Cardiovascular: nl pulses, regular rate and rhythm Gastrointestinal: nl liver, spleen, non-tender, soft Musculoskeletal: nl extremities to inspection, nl gait and stance Extremities: normal pulses Neurological: S[employer] II-XII intact, nl mental status, nl speech, nl strength Skin: nl turgor Lymph: nl lymph nodes Results Result Diagram: 01/31/17 0800 02/01/17 0705 Results 24 hrs Laboratory Tests Test 02/01/17 07:05 Sodium Level 145 H Potassium Level 4.3 Chloride Level 97 Carbon Dioxide Level 29 Anion Gap 23 #H Blood Urea Nitrogen 18 Creatinine 0.93 Glucose Level 101 Calcium Level 10.4 H Total Bilirubin 0.4 Direct Bilirubin 0.00 Indirect Bilirubin 0.4 Aspartate Amino Transf (AST/SGOT) 199 H Alanine Aminotransferase (ALT/SGPT) 136 H Alkaline Phosphatase 95 Creatine Kinase 7278 #H Creatine Kinase Index Creatinine Kinase MB (Mass) 0.95 Troponin I < 0.012 Total Protein 8.4 H Albumin 4.7 Globulin 3.70 H Albumin/Globulin Ratio 1.27 Medications Medications Current Medications Ondansetron HCl (Zofran Inj) 4 mg Q6H PRN IV NAUSEA AND/OR VOMITING; Start at 11:00 Nitroglycerin (Nitroglycerin (Sl Tab) 0.4 Mg) 1 tab Q5M PRN SL CHEST PAIN; Start 01/26/17 at 11:00 Lorazepam (Ativan) 1 mg Q2H PRN IV ANXIETY Last administered on 01/27/17 15:35 ; Admin Dose 1 MG; Start 01/26/17 at 11:00 Quetiapine Fumarate (Seroquel) 25 mg DAILY PRN PO AGITATION Last administered on 01/27/17 13:54; Admin Dose 25 MG; Start 01/26/17 at 12:30; Status Future Hold Atorvastatin Calcium (Lipitor) 40 mg HS PO ; Start 01/26/17 at 21:00; Status Future Hold Famotidine (Pepcid) 20 mg Q12 PO Last administered on 02/01/17 09:58; Admin Dose 20 MG; Start 01/28/17 at 21:00 GRAYSON SARABIA MD Feb 01, 2017 14:51
[2017-02-03 13:03] LABS: HSV 1 IGG ANTIBODY <0.90 index; HSV 2 IGG ANTIBODY <0.90 index
[2017-02-04 18:22] LABS: VDRL, CSF NON-REACTIVE
== END 2017-02-01 18:02 | disposition home or self-care (01) | DRG 70 ==
LOC: E/R 08:23 → ICU 13:58 → MS4 01-29 10:49
PROVIDERS: ADMIT Internal Medicine; ATTEND Internal Medicine
PROC: 009U3ZX Drainage of Spinal Canal, Percutaneous Approach, Diagnostic (ICD-10-PCS; principal; 2017-01-28)
PROC: B01BYZZ Fluoroscopy of Spinal Cord using Other Contrast (ICD-10-PCS; 2017-01-28)
DX: G93.41 Metabolic encephalopathy (principal); R65.11 Systemic inflammatory response syndrome (SIRS) of non-infectious origin with acute organ dysfunction; E87.2 Acidosis; M62.82 Rhabdomyolysis; E87.1 Hypo-osmolality and hyponatremia; E78.5 Hyperlipidemia, unspecified; E87.6 Hypokalemia; I10 Essential (primary) hypertension; S60.561A Insect bite (nonvenomous) of right hand, initial encounter; W57.XXXA Bitten or stung by nonvenomous insect and other nonvenomous arthropods, initial encounter
CPT/HCPCS: 36600; 70450; 70551; 71010; 71275; 80048; 80053; 80061; 80076; 80202; 80306; 80307; 81001; 81003; 82085; 82140; 82533; 82550; 82553; 82570; 82607; 82803; 82945; 82962; 83036; 83605; 83735; 83930; 83935; 84100; 84157; 84300; 84436; 84443; 84479; 84484; 84560; 85025; 85610; 85730; 86592; 86617; 86692; 86703; 86788; 86789; 87040; 87070; 87077; 87081; 87086; 87102; 87116; 87529; 89051; 92526; 92610; 93005; 93306; 94640; 94664; 95819; 96361; 96365; 96366; 96368; 96375; 96376; 97162; J0133; J0290; J1953; J2060; J2543; J3370; J3480; J7030; J7050; J7070; Q9967